=== PATIENT | female | born 1990 | race African-American/Black ===

== ENCOUNTER 2020-11-24 09:55 | Emergency (ER) | payer SELFPAY ==
[~2020-11-24] VITALS: Ht 149.9 cm; Wt 66.2 kg
[~2020-11-24 09:55] MED LIST: [UNRECOGNIZED DRUG - CODE] IV
[2020-11-24 10:00] VITALS: BP 137/60
[2020-11-24 11:46] LABS: Basophils # (auto) 0.1 10 ^3/uL (0-0.2); Basophils % (auto) 0.6 % (0.0-2.0); Eosinophils # (auto) 0 10 ^3/uL (0-0.8); Eosinophils % (auto) 0.2 % (0.0-7.0); Hematocrit 37.1 % (36.0-46.0); Hemoglobin 12.8 g/dL (12.2-16.2); Lymphocytes # (auto) 2.7 10 ^3/uL (0.4-5.4); Lymphocytes % (auto) 17.7 % (10.0-50.0); Mean Corpuscular Hemoglobin 31.2 pg (28.0-32.0); Mean Corpuscular Hgb Conc. 34.6 g/dL (32.0-36.0); Mean Corpuscular Volume 90.1 fL (80.0-100.0); Monocytes # (auto) 1.4 10 ^3/uL (0-1.3); Monocytes % (auto) 9.3 % (0.0-12.0); Neutrophils % (auto) 72.2 % (37.0-80.0); Nucleated Red Blood Cells % 0.1 %; Platelet Count (auto) 248 10^3/uL (140-450); Red Blood Cells 4.11 10^6/uL (4.0-5.20); Red Cell Distribution Width 14.2 % (11.8-14.3); White Blood Cell 15.3 10^3/uL (4.4-10.8)
[2020-11-24 12:07] LABS: Albumin 3.5 g/dL (3.4-5.0); Potassium 3.7 mmol/L (3.5-5.1)
[2020-11-24 12:14] LABS: Bilirubin, Total 0.5 mg/dL (0.2-1.0); Total Protein 8.2 g/dL (6.4-8.2)
[2020-11-24] MEDS ORDERED: PIPERACILLIN-TAZOB 3.375GM 100 ML IV ONE (17:45)
[2020-11-24] MEDS ORDERED: SODIUM CHLORIDE 0.9% 1,000 ML IV ONE (17:45)
[2020-11-24] MEDS ORDERED: metroNIDAZOLE 500MG/100ML 100 ML IV ONE (17:45)
== END 2020-11-24 18:30 | disposition left against medical advice (07) ==
LOC: ER 09:55
DX: R10.31 Right lower quadrant pain (principal); N70.91 Salpingitis, unspecified; F17.210 Nicotine dependence, cigarettes, uncomplicated
CPT/HCPCS: 36415; 74176; 76830; 76856; 80053; 84702; 85025

== ENCOUNTER 2022-09-24 08:20 | Emergency (ER) | payer OTHER ==
[~2022-09-24] VITALS: Ht 147.3 cm; Wt 64.0 kg
[2022-09-24] MEDS ORDERED: KETOROLAC TROMETH 60MG/2ML VIAL IM ONE (10:30)
[2022-09-24 10:39] VITALS: BP 117/84
[2022-09-24] MEDS ORDERED: METH500T22 PO (10:59)
[2022-09-24] MEDS ORDERED: IBUP600T27 PO (10:59)
== END 2022-09-24 11:07 | disposition home or self-care (01) ==
LOC: ER 08:20
DX: S16.1XXA Strain of muscle, fascia and tendon at neck level, initial encounter (principal); S39.012A Strain of muscle, fascia and tendon of lower back, initial encounter; F17.210 Nicotine dependence, cigarettes, uncomplicated; Z79.1 Long term (current) use of non-steroidal anti-inflammatories (NSAID); Z79.899 Other long term (current) drug therapy; W01.0XXA Fall on same level from slipping, tripping and stumbling without subsequent striking against object, initial encounter; Y93.89 Activity, other specified; Y92.89 Other specified places as the place of occurrence of the external cause; Y99.8 Other external cause status
CPT/HCPCS: 72040; 72100; 96372; 99284; J1885

== ENCOUNTER 2023-09-24 22:14 | Emergency (ER) | payer OTHER ==
[~2023-09-24] VITALS: Ht 149.9 cm; Wt 66.0 kg
[~2023-09-24 22:14] MED LIST changes: +IBUP-1454 PO; +METH-1181 PO
[2023-09-25] MEDS ORDERED: DexAMETHasone SOD PHOS 10MG/1ML VIAL INJ IM ONE (01:15)
[2023-09-25] MEDS ORDERED: KETOROLAC TROMETH 60MG/2ML VIAL IM ONE (01:15)
[2023-09-25] MEDS ORDERED: METOCLOPRAMIDE HCL 10 MG TAB PO ONE (01:15)
[2023-09-25] MEDS ORDERED: ACETAMINOPHEN 500 MG TAB PO ONE (01:15)
[2023-09-25 01:18] VITALS: BP 108/76
[2023-09-25 01:24] VITALS: PULSE 92; RESP 18; O2SAT 100
[2023-09-25 02:17] VITALS: PULSE 81
[2023-09-25] MEDS ORDERED: IBUP-1456 PO (03:33)
== END 2023-09-25 03:41 | disposition home or self-care (01) ==
LOC: ER 22:14
DX: S16.1XXA Strain of muscle, fascia and tendon at neck level, initial encounter (principal); G43.909 Migraine, unspecified, not intractable, without status migrainosus; M54.12 Radiculopathy, cervical region; F17.210 Nicotine dependence, cigarettes, uncomplicated; X58.XXXA Exposure to other specified factors, initial encounter; Y93.89 Activity, other specified; Y92.89 Other specified places as the place of occurrence of the external cause; Y99.8 Other external cause status
CPT/HCPCS: 71046; 93005; 96372; 99284; J1100; J1885; J8597

== ENCOUNTER 2024-07-24 11:06 | Emergency (ER) | payer OTHER ==
[~2024-07-24] VITALS: Ht 144.8 cm; Wt 66.8 kg
[~2024-07-24 11:06] MED LIST changes: +IBUP-1456 PO
[2024-07-24] MEDS ORDERED: FLUC150T38 PO (15:32)
[2024-07-24] MEDS ORDERED: IBUP1TAB5 PO (15:32)
[2024-07-24] MEDS ORDERED: CLOT-6 EX (15:32)
[2024-07-24] MEDS: IBUPROFEN 600 MG TAB PO ONE (15:36)
[2024-07-24 15:41] VITALS: BP 159/99; PULSE 104; RESP 16; TEMP 99.2; O2SAT 99
== END 2024-07-24 15:40 | disposition home or self-care (01) ==
LOC: ER 11:06
DX: B35.4 Tinea corporis (principal); B35.3 Tinea pedis; F17.210 Nicotine dependence, cigarettes, uncomplicated

== ENCOUNTER 2024-12-01 15:41 | Emergency (ER) | payer OTHER ==
[~2024-12-01] VITALS: Ht 147.3 cm; Wt 60.0 kg
[~2024-12-01 15:41] MED LIST changes: +CLOT-6 EX; +FLUC150T38 PO; +IBUP1TAB5 PO
--- NOTE | 2024-12-01 15:57 | ED.PDOC ---
History of Present Illness HPI Comments 34F BIBA w/ prior Hx of cyst in the ABD and an abscess on the fallopian tubes which all may be associated to the c/c of Lower ABD pain. EMS report the pt having abd pain for the past 5-6 years, due from the diagnosis. Pt notes that the pain worsened whenever she has her menstruation cycle due from the cramps. Pt reports that the pain has been increasingly worsened and yesterday the pt had lower ABD pain which was sharp. EMS note that the pt did state that she was 10 days late from her cycle and that there is a possibility of her being . Pt does have lesions in the arms. Denies chills, fever, N/V/D< SOB, CP or other associated symptom's, modifiers, or recent injuries or sick contact at this time. Chief Complaint: Pelvic Pain Time Seen by MD: 15:45 Primary Care Provider: UNKNOWN Reviewed Notes: Nurses Notes, Medications, Allergies Allergies: Coded Allergies: NO KNOWN ALLERGIES (Unverified , 11/24/20) Home Meds Active Scripts Cephalexin Monohydrate (Cephalexin) 500 Mg Tab, 1 TAB PO QID, #40 TAB Prov:MARIE HOOKS MD 12/01/24 Ibuprofen Micronized (MOTRIN TABLET) 600 Mg Tb, 600 MG PO TID PRN, #40 TAB *Black box warning-NSAIDS can increase risk of [place] & hypertension, GI irritation, ulceration, bleed, perferation. Do not use post cardiac surgery. Use short duration/lowest effective dose. Prov:MARIE HOOKS MD 12/01/24 Fluconazole (Diflucan) 150 Mg Tab, 1 TAB PO ONCE for 14 Days, #2 TAB Take once weekly for two weeks Prov:CANDY FRANCIS 07/24/24 Clotrimazole (Topical) (EQ ANTIFUNGAL) 1 % Cre, 1 % EX BID for 28 Days, #1 CRE Prov:CANDY FRANCIS 07/24/24 Ibuprofen Micronized (Ibuprofen) 600 Mg Tab, 600 MG PO Q8HPRN PRN, #20 TAB Prov:CANDY FRANCIS 07/24/24 Methocarbamol (Methocarbamol) 500 Mg Tab, 500 MG PO BID, #20 TAB Prov:PATRICIA CAIN 02/10/24 Ibuprofen (Ibuprofen) 800 Mg Tab, 1 TAB PO TID, #30 TAB Prov:PATRICIA CAIN 02/10/24 Ibuprofen (Ibuprofen) 800 Mg Tab, 1 TAB PO TID PRN for 7 Days, #21 TAB 1 Refill Prov:JESSY VELEZ CNA CAREGIVER 09/25/23 Methocarbamol (Methocarbamol) 500 Mg Tab, 500 MG PO BID, #20 TAB Prov:PATRICIA CAIN 09/24/22 Ibuprofen (Ibuprofen) 600 Mg Tab, 600 MG PO TID, #30 TAB Prov:PATRICIA CAIN 09/24/22 Reported Medications Heparin Sodium (Porcine) ((None)) 10 Units/Ml Ij, 10 UNITS IV 10/21/13 Information Source: Patient Mode of Arrival: EMS Severity: Moderate Timing: Hours Duration: Since onset, Hours Prehospital treatment: None Past Medical History PAST MEDICAL HISTORY: Denies Surgical History: Denies all surgeries CASE MANAGEMENT SPECIALIST History: No Pertinent CASE MANAGEMENT SPECIALIST History Family History Family History: Reviewed,noncontributory to illness, Unknown Social History Smoker: Non-Smoker Alcohol: Denies ETOH Use Drugs: Denies Drug Use Lives In: Home Constitutional: denies: chills, diaphoresis, fatigue, fever, malaise, sweats, weakness, others EENTM: denies: blurred vision, double vision, ear bleeding, ear discharge, ear drainage, ear pain, ear ringing, eye pain, eye redness, hearing loss, mouth pain, mouth swelling, nasal discharge, nose bleeding, nose congestion, nose pain, photophobia, tearing, throat pain, throat swelling, voice changes, others Respiratory: denies: cough, hemoptysis, orthopnea, SOB at rest, shortness of breath, SOB with excertion, stridor, wheezing, others Cardiovascular: denies: chest pain, dizzy spells, diaphoresis, Dyspnea on exertion, edema, irregular heart beat, left arm pain, lightheadedness, palpitations, PND, syncope, others Gastrointestinal: reports: abdominal pain; denies: abdomen distended, blood streaked bowels, constipated, diarrhea, dysphagia, difficulty swallowing, hematemesis, melena, nausea, poor appetite, poor fluid intake, rectal bleeding, rectal pain, vomiting, others Genitourinary: denies: abnormal vagina bleeding, burning, dyspareunia, dysuria, flank pain, frequency, hematuria, incontinence, pain, , vagina discharge, urgency, others Neurological: denies: dizziness, fainting, headache, left sided numbness, left sided weakness, numbness, paresthesia, pre-existing deficit, right sided numbness, right sided weakness, seizure, speech problems, tingling, tremors, weakness, others Musculoskeletal: denies: back pain, gout, joint pain, joint swelling, muscle pain, muscle stiffness, neck pain, others Integumetry: denies: bruises, change in color, change in hair/nails, dryness, laceration, lesions, lumps, rash, wounds, others Allergic/Immunocompromised: denies: Difficulty Healing, Frequent Infections, Hives, Itching, others Hematologic/Lymphatic: denies: anemia, blood clots, easy bleeding, easy bruising, swollen glands, others Endocrine: denies: excessive hunger, excessive sweating, excessive thirst, excessive urination, flushing, intolerance to cold, intolerance to heat, unexplained weight gain, unexplained weight loss, others Psychiatric: denies: anxiety, bipolar disorder, depression, hopeless, panic disorder, schizophrenia, sleepless, suicidal, others All Other Systems: Reviewed and Negative Physical Exam Exam Comments Non-tender General Appearance: No Apparent Distress, Normal HEENT: Normal ENT Inspection, Pharynx Normal, TMs Normal Neck: Full Range of Motion, Non-Tender, Normal, Normal Inspection Respiratory: Chest Non-Tender, Lungs Clear, No Accessory Muscle Use, No Respiratory Distress, Normal Breath Sounds Cardiovascular: No Edema, No JVD, No Murmur, No Gallop, Normal Peripheral Pulses, Regular Rate/Rhythm Breast Exam: Deferred Gastrointestinal: No Organomegaly, Non Tender, No Pulsatile Mass, Normal Bowel Sounds, Soft Genitalia: Deferred Pelvic: Deferred Rectal: Deferred Extremities: No calf tenderness, Normal capillary refill, Normal inspection, Normal range of motion, Non-tender, No pedal edema Musculoskeletal : Apperance: Normal Neurologic: Alert, equity analyst II-XII nml as Tested, No Motor Deficits, Normal Affect, Normal Mood, No Sensory Deficits Cerebellar Function: Normal Reflexes: Normal Skin: Dry, Normal Color, Warm Lymphatic: No Adenopathy Was a procedure done? Was a procedure done?: No Differential Dx Considerations may include: ovarian cyst. ovarian torsion, ovarian mass. colitis, stones, uti, related conditions. sob. constipation X-Ray, Labs, Meds, VS Vital Signs Date Time Temp Pulse Resp B/P (MAP) Pulse Ox O2 Delivery O2 Flow Rate FiO2 12/01/24 15:46 98.3 103 18 112/75 (87) 100 Lab Test 12/01/24 16:25 12/01/24 16:15 Range/Units Urine Color Light-yellow Yellow Urine Clarity Turbid H Clear Urine pH 5.5 5.0-9.0 Urine Specific [place] 1.010 1.001-1.035 Urine Protein Trace H Negative Urine Ketones Negative Negative Urine Blood Negative Negative /uL Urine Nitrite 2+ H Negative Urine Bilirubin Negative Negative Urine Urobilinogen Normal Negative mg/dL Urine Leukocyte Esterase Trace Negative /uL Urine RBC 3 0 - 4 /hpf Urine WBC 10 0 - 5 /hpf Urine Squamous Epithelial Cells Few <5 /hpf Urine Bacteria Few H None Seen /hpf Urine Hyaline Casts Few 0 - 2 /lpf Urine Mucus Few None Seen Urine Glucose Normal Normal mg/dL Urine Test Negative Negative White Blood Count 6.4 4.4-10.8 10^3/uL Red Blood Count 4.29 4.0-5.20 10^6/uL Hemoglobin 13.5 12.2-16.2 g/dL Hematocrit 39.5 36.0-46.0 % Mean Corpuscular Volume 92.1 80.0-100.0 fL Mean Corpuscular Hemoglobin 31.4 28.0-32.0 pg Mean Corpuscular Hemoglobin Concent 34.1 32.0-36.0 g/dL Red Cell Distribution Width 14.4 H 11.8-14.3 % Platelet Count 120 L 140-450 10^3/uL Mean Platelet Volume 8.2 6.9-10.8 fL Neutrophils (%) (Auto) 64.0 37.0-80.0 % Lymphocytes (%) (Auto) 28.5 10.0-50.0 % Monocytes (%) (Auto) 6.5 0.0-12.0 % Eosinophils (%) (Auto) 0.3 0.0-7.0 % Basophils (%) (Auto) 0.7 0.0-2.0 % Neutrophils # (Auto) 4.1 1.6-8.6 10 ^3/uL Lymphocytes # (Auto) 1.8 0.4-5.4 10 ^3/uL Monocytes # (Auto) 0.4 0-1.3 10 ^3/uL Eosinophils # (Auto) 0 0-0.8 10 ^3/uL Basophils # (Auto) 0 0-0.2 10 ^3/uL Nucleated Red Blood Cells 0.0 % Sodium Level 141 136-145 mmol/L Potassium Level 3.3 L 3.5-5.1 mmol/L Chloride Level 109 H 98-107 mmol/L Carbon Dioxide Level 22 20-31 mmol/L Anion Gap 10 5-15 Blood Urea Nitrogen 6 L 9-23 mg/dL Creatinine 0.69 0.550-1.02 mg/dL Glomerular Filtration Rate Calc 117 >90 mL/min BUN/Creatinine Ratio 8.7 L 10.0-20.0 Serum Glucose 84 74-106 mg/dL Calcium Level 9.9 8.7-10.4 mg/dL Current Medications Medications (Trade) Dose Ordered Sig/Kari Route Start Time Stop Time Status Last Admin Acetaminophen/ Hydrocodone Bitart ([place] 7.5/325MG Tab) 1 tab ONCE ONCE PO 12/01/24 16:15 12/01/24 16:16 DC 12/01/24 16:26 Cephalexin (Keflex Capsule) 500 mg ONCE ONCE PO 12/01/24 18:45 12/01/24 18:46 DC 12/01/24 18:56 Time of 1ST Reevaluation: 16:15 Reevaluation 1ST: Unchanged Time of 2ND Reevaluation: 21:06 Reevaluation 2ND: Resolved Patient Education/Counseling: Diagnosis, Treatment, Prognosis, Need For Follow Up Family Education/Counseling: Diagnosis, Treatment, Prognosis, Need For Follow Up, No Family Present Additional Information - I reviewed the following notes from patient's past medical encounters:07/24/24 - The following tests were ordered, and results were reviewed by me: Labs, PHA, US - Additional information was gathered from interviewing the following independent Historian: EMT - I reviewed and agreed with the following test results read by other provider: US - I discussed treatments and results with medical personnel and: (consultants, family) both US and ct only showed a nonspecific ovarian cystic structure. since both the ct and us were unable to delineate the lesion. she has known about this for years.her pain is resolved. pt is stable to follow up with her doctor. Dr Masters will have brass molder helper contact her on wednesday for follow up Departure 1 Departure Time of Disposition: 19:16 Impression: Primary Impression: UTI (urinary tract infection) Qualified Codes: N30.00 - Acute cystitis without hematuria Additional Impression: Ovarian cyst Qualified Codes: N83.201 - Unspecified ovarian cyst, right side Disposition: HOME / SELF CARE / HOMELESS Condition: Stable Additional Instructions: your doctor will follow up with you to further evaluate your ovarian growth, which may be a cyst or other structures. e-Prescriptions Cephalexin Monohydrate (Cephalexin) 500 Mg Tab 1 TAB PO QID, #40 TAB Prov: MARIE HOOKS MD 12/01/24 Ibuprofen Micronized (MOTRIN TABLET) 600 Mg Tb 600 MG PO TID PRN, #40 TAB *Black box warning-NSAIDS can increase risk of [place] & hypertension, GI irritation, ulceration, bleed, perferation. Do not use post cardiac surgery. Use short duration/lowest effective dose. Prov: MARIE HOOKS MD 12/01/24 Discharged With: Self, Relative Critical Care Note Critical Care Time?: No Stability Stability form required: No I personally scribed for MARIE HOOKS MD ([email or web address]) on 12/01/24 at 15:57. Electronically submitted by Addison Diehl ([email or web address]). MARIE HOOKS MD Dec 01, 2024 15:57
[2024-12-01] MEDS ORDERED: HYDROcodone-ACET 5/325MG TAB PO ONE (16:00)
[2024-12-01] MEDS: HYDROcodone-ACET 7.5/325MG TAB PO ONE (16:26)
[2024-12-01 16:30] LABS: Basophils # (auto) 0 10 ^3/uL (0-0.2); Basophils % (auto) 0.7 % (0.0-2.0); Eosinophils # (auto) 0 10 ^3/uL (0-0.8); Eosinophils % (auto) 0.3 % (0.0-7.0); Hematocrit 39.5 % (36.0-46.0); Hemoglobin 13.5 g/dL (12.2-16.2); Lymphocytes # (auto) 1.8 10 ^3/uL (0.4-5.4); Lymphocytes % (auto) 28.5 % (10.0-50.0); Mean Corpuscular Hemoglobin 31.4 pg (28.0-32.0); Mean Corpuscular Hgb Conc. 34.1 g/dL (32.0-36.0); Mean Corpuscular Volume 92.1 fL (80.0-100.0); Monocytes # (auto) 0.4 10 ^3/uL (0-1.3); Monocytes % (auto) 6.5 % (0.0-12.0); Neutrophils # (auto) 4.1 10 ^3/uL (1.6-8.6); Platelet Count (auto) 120 10^3/uL (140-450); Red Blood Cells 4.29 10^6/uL (4.0-5.20); Red Cell Distribution Width 14.4 % (11.8-14.3); White Blood Cell 6.4 10^3/uL (4.4-10.8)
[2024-12-01 16:44] LABS: Sodium 141 mmol/L (136-145)
[2024-12-01 16:45] LABS: Anion Gap 10 (5-15); Calcium 9.9 mg/dL (8.7-10.4); Carbon Dioxide 22 mmol/L (20-31)
[2024-12-01 16:50] LABS: BUN/Creatinine Ratio 8.7 (10.0-20.0); Glucose 84 mg/dL (74-106)
[2024-12-01 16:52] LABS: Blood Urea Nitrogen 6 mg/dL (9-23); Chloride 109 mmol/L (98-107); Potassium 3.3 mmol/L (3.5-5.1)
[2024-12-01 17:08] LABS: Urine Bacteria FEW /hpf (None Seen); Urine Blood Negative /uL (Negative); Urine Clarity Turbid (Clear); Urine Color Light-Yellow (Yellow); Urine Hyaline Cast FEW /lpf (0 - 2); Urine Mucus FEW (None Seen); Urine Protein, UAD TRACE (Negative); Urine Squamous Epithelial Cell FEW /hpf (<5); Urine Urobilinogen Normal (Negative); Urine WBC 10 /hpf (0 - 5); Urine pH 5.5 (5.0-9.0)
--- NOTE | 2024-12-01 18:49 | DVH ---
Procedure: US PELVIC Study Date and Requested Time: 12/01/2024 05:21 PM Study Description: US PELVIC History: pelvic pain Comparison: None Technique: Multiple transabdominal and transvaginal high resolution shore-scale images obtained of the uterus and adnexa with color Doppler for evaluation of adnexal blood flow and vascularity as indicat ed. Findings: Uterus measures 9.0 4 x 4.42 x 3.9 cm with multiple hypoechoic lesions, largest measuring up to 1.8 c m. Endometrial thickness of 14 mm. Cervix within normal limits. The right ovary is not visualized. 8.6 x 3.7 x 7.4 cm right adnexal structure. Left ovary measures 3.8 x 3.2 x 3.5 cm 3.4 cm cyst. 4 x 3.4 x 4.5 cm left adnexal structure There is small amount of free fluid within the pelvis Impression: Fibroid uterus. The right ovary is not visualized. 3.4 cm left ovarian cyst. 8.6 x 3.7 x 7.4 cm complex structure of the right adnexa with 4 x 3.4 x 4.5 cm complex structure of t he left adnexa which are not adequately assessed. CT with contrast should be considered for further e valuation. Endometrial thickness of 14 mm. Recommend correlation with phase of menstrual cycle
[2024-12-01] MEDS: CEPHALEXIN 250 MG CAP PO ONE (18:56)
--- NOTE | 2024-12-01 19:54 | DVH ---
Exam: CT CT AB PEL WO CON-NO ORAL OR IV History: right lower abdominal pain Comparison Study: None available at time of dictation. TECHNIQUE: Multidetector CT of the abdomen was performed from lung bases to pubic symphysis. Imaging was performed without IV contrast. Axial, coronal and sagittal multiplanar reformats were obtained fr om the axial data set by the technologist. Radiation Dose Information: CT Dose: CTDI volume is 5.95 mGy. Dose-length product is 306.6 mGy*cm FINDINGS: Evaluation of solid organs is limited due to lack of intravenous contrast use. Findings: Lung Bases: No acute or significant lung base finding. Normal heart size. No pleural or pericardial effusion. Liver: The liver is normal in size. No focal lesions. Gallbladder and Biliary Tree: Unremarkable Spleen: Unremarkable Pancreas: The pancreas is grossly normal in appearance. Adrenal Glands: Unremarkable Kidneys: Kidneys are grossly normal without calculi or hydronephrosis. Bladder: Grossly unremarkable for degree of distention. Bowel: The stomach is grossly normal in appearance. Small bowel and colon are normal in caliber and d istribution. The appendix is visible and appears normal Ascites: Absent Lymphadenopathy: No mesenteric, retroperitoneal or periportal lymphadenopathy. Abdominal Wall and Mesentery: Unremarkable. Vasculature: The visualized abdominal aorta is normal in size and caliber. Evaluation of abdominal a nd pelvic vessels is limited due to lack of intravenous contrast. Pelvic Organs: Uterus is visible and there is a 3.2 cm low-density mass in the left adnexa most likel y ovary. In the right adnexa there are 2 water density lesions 1 measures 3.6 cm the other 4.4 cm may represent ovarian structures if of clinical concern recommend pelvic ultrasound. Musculoskeletal: No aggressive focal bony lesions, acute fractures or dislocation. Soft tissues: Unremarkable IMPRESSION: 1. No calcifications the gallbladder. 2. Appendix visualized and appears normal 3. Prominent right adnexal masses measuring pre 0.6 and 4.4 cm most likely ovarian in origin if of cl inical concern recommend pelvic ultrasound. 4. No findings of bowel obstruction. 5. No nephrolithiasis or hydronephrosis. Radiation optimization: All CT scans at this facility use at least one of these dose optimization te chniques: automated exposure control mA and/or kV adjustment per patient size (includes targeted exa ms where dose is matched to clinical indication) or iterative reconstruction.
[2024-12-01] MEDS ORDERED: IBU600T PO (21:09)
[2024-12-01] MEDS ORDERED: CEPH500T PO (21:33)
[2024-12-01 21:37] VITALS: BP 148/100; PULSE 108; RESP 18; TEMP 99.1; O2SAT 96
--- NOTE | 2024-12-02 08:03 | DVHDS2 ---
Physician Discharge Progress N Final Diagnosis: UTI Ovarian cysts Fibroid uterus Operations or Procedures: Operations or Procedures none Other Interventions Other Interventions Lab results, US, CT Consultations: Consultations none Commentary: Commentary 34 y.o. female with h/o ovarian cysts was brought to the ER c/o abdominal pain. Patient informed that she had h/o abdominal abscess related to fallopian tubes infection and that she has experienced abdominal pain for the past 6 years during her menstrual cycle. She stated that yesterday her pain was worse and she decided to come to ER. Patient stated that her cycle was late and she might be . Her beta HCG was less than 1 and ER MD ordered CT that showed: Pelvic Organs: Uterus is visible and there is a 3.2 cm low-density mass in the left adnexa most likely ovary. In the right adnexa there are 2 water density lesions 1 measures 3.6 cm the other 4.4 cm may represent ovarian structures if of clinical concern recommend pelvic ultrasound. In addition, her US showed fibroid uterus. Patient was given IV Abx and discharged to follow up with [facility] as an outpatient. Patient agreed with the plan of care. Condition on Discharge: Stable Disposition: Home SNF Discharge Will this Physician continue t: No Discharge Instructions: Diet: Regular Activity: No Restrictions, As Tolerated Follow Up/Referral: Follow with [facility]. [facility] case management will schedule the appointment and coordinated with the patient Medications: Continue home medications and Abx for UTI Follow Up Care: Discharge Statement: "Patient was advised to return to the ER or call 911 if any headaches, dizziness, shortness of breath, chest pain, abdominal pain, bleeding, fevers, or worsening of medical condition. Patient was counseled about treatment plan, medications, possible side effects, patientverbalized understanding. All questions were answered to the best of my ability. This discharge took greater then 30 minutes in planning, reviewing documentation, counseling the patient, and discussing with other team members." JESSE LÓPEZ MD Dec 02, 2024 08:03
== END 2024-12-01 21:47 | disposition home or self-care (01) ==
LOC: EDUNIT# 15:41 → ER 15:41 → EDBD 15:41 → ER 21:46
DX: N39.0 Urinary tract infection, site not specified (principal); N83.202 Unspecified ovarian cyst, left side; R10.30 Lower abdominal pain, unspecified
CPT/HCPCS: 36415; 74176; 76856; 80048; 81001; 81025; 85025

== ENCOUNTER 2025-03-14 11:34 | Emergency (ER) | payer OTHER ==
[~2025-03-14] VITALS: Ht 149.9 cm; Wt 55.5 kg
[~2025-03-14 11:34] MED LIST changes: +CEPH500T PO; +IBU600T PO
[2025-03-14 14:00] VITALS: PULSE 105; RESP 22; O2SAT 97
[2025-03-14 14:01] LABS: Eosinophils # (auto) 0 10 ^3/uL (0-0.8); Hemoglobin 8.2 g/dL (12.2-16.2); Lymphocytes # (auto) 1.6 10 ^3/uL (0.4-5.4)
[2025-03-14 14:03] LABS: Basophils # (auto) 0 10 ^3/uL (0-0.2); Basophils % (auto) 0.4 % (0.0-2.0); Eosinophils % (auto) 0.2 % (0.0-7.0); Lymphocytes % (auto) 18.2 % (10.0-50.0); Mean Corpuscular Hemoglobin 33.1 pg (28.0-32.0); Mean Corpuscular Hgb Conc. 34.2 g/dL (32.0-36.0); Mean Corpuscular Volume 96.7 fL (80.0-100.0); Monocytes # (auto) 0.8 10 ^3/uL (0-1.3); Monocytes % (auto) 9.4 % (0.0-12.0); Neutrophils # (auto) 6.5 10 ^3/uL (1.6-8.6); Neutrophils % (auto) 71.8 % (37.0-80.0); Nucleated Red Blood Cells % 2.4 %; Red Blood Cells 2.48 10^6/uL (4.0-5.20); Red Cell Distribution Width 17.9 % (11.8-14.3)
[2025-03-14 14:14] LABS: Alanine Aminotransferase 18 U/L (7-40); Albumin 4.3 g/dL (3.2-4.8); Alkaline Phosphatase 46 U/L (46-116); Anion Gap 10 (5-15); BUN/Creatinine Ratio 13.4 (10.0-20.0); Blood Urea Nitrogen 18 mg/dL (9-23); Calcium 9.7 mg/dL (8.7-10.4); Carbon Dioxide 22 mmol/L (20-31); Chloride 101 mmol/L (98-107); Glucose 94 mg/dL (74-106); Total Protein 7.6 g/dL (5.7-8.2)
[2025-03-14 14:17] LABS: Aspartate Aminotransferase 103 U/L (13-40); Bilirubin, Total 1.3 mg/dL (0.2-1.0); Potassium 3.2 mmol/L (3.5-5.1); Sodium 133 mmol/L (136-145)
[2025-03-14 14:21] LABS: Anisocytosis Slight; Platelet Count (auto) 27 10^3/uL (140-450); Platelet Estimate Markedly Decreased
[2025-03-14 14:22] LABS: Large Platelets FEW
[2025-03-14] MEDS ORDERED: ASPirin 325 MG TAB PO ONE (14:30)
--- NOTE | 2025-03-14 14:39 | ED.PDOC ---
History of Present Illness HPI Comments 34F presents to the Er w/ prior Hx of connective tissue disease which may be associated to the c/c of ABN Labs. Pt reports that she did not eat for 2 days and went to and that they informed her that her platelets are at 10 and to go to the ER. Pt states that the reason for going to was due from feeling dizzy, dry cough and having dry mouth. Pt notes that she has 20lbs in a week. Denies chills, fever, N/V/D, SOB, CP No other associated symptoms, modifiers, recent injuries or sick contacts present at this time. Chief Complaint: Chest Pain Time Seen by MD: 12:50 Primary Care Provider: UNKNOWN Reviewed Notes: Nurses Notes, Medications, Allergies Allergies: Coded Allergies: NO KNOWN ALLERGIES (Unverified , 11/24/20) Home Meds Active Scripts Cephalexin Monohydrate (Cephalexin) 500 Mg Tab, 1 TAB PO QID, #40 TAB Prov:MARIE FELIPE MD 12/01/24 Ibuprofen Micronized (MOTRIN TABLET) 600 Mg Tb, 600 MG PO TID PRN, #40 TAB *Black box warning-NSAIDS can increase risk of VT & hypertension, GI irritation, ulceration, bleed, perferation. Do not use post cardiac surgery. Use short duration/lowest effective dose. Prov:MARIE FELIPE MD 12/01/24 Fluconazole (Diflucan) 150 Mg Tab, 1 TAB PO ONCE for 14 Days, #2 TAB Take once weekly for two weeks Prov:CANDY FRANCIS 07/24/24 Clotrimazole (Topical) (EQ ANTIFUNGAL) 1 % Cre, 1 % EX BID for 28 Days, #1 CRE Prov:CANDY FRANCIS 07/24/24 Ibuprofen Micronized (Ibuprofen) 600 Mg Tab, 600 MG PO Q8HPRN PRN, #20 TAB Prov:CANDY FRANCIS 07/24/24 Methocarbamol (Methocarbamol) 500 Mg Tab, 500 MG PO BID, #20 TAB Prov:PATRICIA CAIN 02/10/24 Ibuprofen (Ibuprofen) 800 Mg Tab, 1 TAB PO TID, #30 TAB Prov:PATRICIA CAIN 02/10/24 Ibuprofen (Ibuprofen) 800 Mg Tab, 1 TAB PO TID PRN for 7 Days, #21 TAB 1 Refill Prov:JESSY VELEZP 09/25/23 Methocarbamol (Methocarbamol) 500 Mg Tab, 500 MG PO BID, #20 TAB Prov:PATRICIA CAIN 09/24/22 Ibuprofen (Ibuprofen) 600 Mg Tab, 600 MG PO TID, #30 TAB Prov:PATRICIA CAIN 09/24/22 Reported Medications Heparin Sodium (Porcine) ((None)) 10 Units/Ml Ij, 10 UNITS IV 10/21/13 Information Source: Patient Mode of Arrival: EMS Severity: Moderate Timing: Hours Duration: Since onset, Hours Prehospital treatment: None Past Medical History Past Medical History (Other): Connective tissue Shira Surgical History: Denies all surgeries WELFARE ELIGIBILITY INTERVIEWER History: No Pertinent WELFARE ELIGIBILITY INTERVIEWER History Family History Family History: Reviewed,noncontributory to illness, Unknown Social History Smoker: Non-Smoker Alcohol: Denies ETOH Use Drugs: Denies Drug Use Lives In: Home Constitutional: denies: chills, diaphoresis, fatigue, fever, malaise, sweats, weakness, others EENTM: denies: blurred vision, double vision, ear bleeding, ear discharge, ear drainage, ear pain, ear ringing, eye pain, eye redness, hearing loss, mouth pain, mouth swelling, nasal discharge, nose bleeding, nose congestion, nose pain, photophobia, tearing, throat pain, throat swelling, voice changes, others Respiratory: reports: cough; denies: hemoptysis, orthopnea, SOB at rest, shortness of breath, SOB with excertion, stridor, wheezing, others Cardiovascular: denies: chest pain, dizzy spells, diaphoresis, Dyspnea on exertion, edema, irregular heart beat, left arm pain, lightheadedness, palpitations, PND, syncope, others Gastrointestinal: denies: abdomen distended, abdominal pain, blood streaked bowels, constipated, diarrhea, dysphagia, difficulty swallowing, hematemesis, melena, nausea, poor appetite, poor fluid intake, rectal bleeding, rectal pain, vomiting, others Genitourinary: denies: abnormal vagina bleeding, burning, dyspareunia, dysuria, flank pain, frequency, hematuria, incontinence, pain, , vagina discharge , urgency, others Neurological: reports: dizziness; denies: fainting, headache, left sided numbness, left sided weakness, numbness, paresthesia, pre-existing deficit, right sided numbness, right sided weakness, seizure, speech problems, tingling, tremors, weakness, others Musculoskeletal: denies: back pain, gout, joint pain, joint swelling, muscle pain, muscle stiffness, neck pain, others Integumetry: denies: bruises, change in color, change in hair/nails, dryness, laceration, lesions, lumps, rash, wounds, others Allergic/Immunocompromised: denies: Difficulty Healing, Frequent Infections, Hives, Itching, others Hematologic/Lymphatic: denies: anemia, blood clots, easy bleeding, easy bruising, swollen glands, others Endocrine: denies: excessive hunger, excessive sweating, excessive thirst, excessive urination, flushing, intolerance to cold, intolerance to heat, unexplained weight gain, unexplained weight loss, others Psychiatric: denies: anxiety, bipolar disorder, depression, hopeless, panic disorder, schizophrenia, sleepless, suicidal, others All Other Systems: Reviewed and Negative Physical Exam General Appearance: No Apparent Distress, Normal HEENT: Normal ENT Inspection, Pharynx Normal, TMs Normal Neck: Full Range of Motion, Non-Tender, Normal, Normal Inspection Respiratory: Chest Non-Tender, Lungs Clear, No Accessory Muscle Use, No Respiratory Distress, Normal Breath Sounds Cardiovascular: No Edema, No JVD, No Murmur, No Gallop, Normal Peripheral Pulses, Regular Rate/Rhythm Breast Exam: Deferred Gastrointestinal: No Organomegaly, Non Tender, No Pulsatile Mass, Normal Bowel Sounds, Soft Genitalia: Deferred Pelvic: Deferred Rectal: Deferred Extremities: No calf tenderness, Normal capillary refill, Normal inspection, Normal range of motion, Non-tender, No pedal edema Musculoskeletal : Apperance: Normal Neurologic: Alert, substation engineer II-XII nml as Tested, No Motor Deficits, Normal Affect, Normal Mood, No Sensory Deficits Cerebellar Function: Normal Reflexes: Normal Skin: Dry, Normal Color, Warm Lymphatic: No Adenopathy Was a procedure done? Was a procedure done?: No Differential Dx Considerations may include: ITP, TTP, HUS, hematologic malignancy, marrow failure. HIT X-Ray, Labs, Meds, VS Vital Signs Date Time Temp Pulse Resp B/P (MAP) Pulse Ox O2 Delivery O2 Flow Rate FiO2 03/14/25 17:20 107 24 134/100 03/14/25 16:00 105 03/14/25 15:00 106 29 130/97 (108) 97 03/14/25 14:41 106 03/14/25 14:00 105 22 97 Room Air* 0 21 03/14/25 14:00 98.5 105 22 136/88 (104) 97 98.5 03/14/25 13:54 106 03/14/25 13:54 106 19 125/82 (96) 97 03/14/25 12:32 104 03/14/25 12:08 98.0 103 20 129/97 (108) 99 98.0 03/14/25 11:40 99 03/14/25 11:35 98.6 100 18 138/102 (114) 99 98.6 Lab Test 03/14/25 15:47 03/14/25 13:35 03/14/25 12:39 Range/Units Troponin I High Sensitivity 661 *H 692 *H 692 *H </=34 ng/L White Blood Count 9.0 4.4-10.8 10^3/uL Red Blood Count 2.48 L 4.0-5.20 10^6/uL Hemoglobin 8.2 L 12.2-16.2 g/dL Hematocrit 24.0 L 36.0-46.0 % Mean Corpuscular Volume 96.7 80.0-100.0 fL Mean Corpuscular Hemoglobin 33.1 H 28.0-32.0 pg Mean Corpuscular Hemoglobin Concent 34.2 32.0-36.0 g/dL Red Cell Distribution Width 17.9 H 11.8-14.3 % Platelet Count 27 L 140-450 10^3/uL Mean Platelet Volume 8.6 6.9-10.8 fL Neutrophils (%) (Auto) 71.8 37.0-80.0 % Lymphocytes (%) (Auto) 18.2 10.0-50.0 % Monocytes (%) (Auto) 9.4 0.0-12.0 % Eosinophils (%) (Auto) 0.2 0.0-7.0 % Basophils (%) (Auto) 0.4 0.0-2.0 % Neutrophils # (Auto) 6.5 1.6-8.6 10 ^3/uL Lymphocytes # (Auto) 1.6 0.4-5.4 10 ^3/uL Monocytes # (Auto) 0.8 0-1.3 10 ^3/uL Eosinophils # (Auto) 0 0-0.8 10 ^3/uL Basophils # (Auto) 0 0-0.2 10 ^3/uL Nucleated Red Blood Cells 2.4 % Platelet Estimate Markedly decreased Large Platelets Few Anisocytosis (manual) Slight Schistocytes Few Sodium Level 133 L 136-145 mmol/L Potassium Level 3.2 L 3.5-5.1 mmol/L Chloride Level 101 98-107 mmol/L Carbon Dioxide Level 22 20-31 mmol/L Anion Gap 10 5-15 Blood Urea Nitrogen 18 9-23 mg/dL Creatinine 1.34 H 0.550-1.02 mg/dL Glomerular Filtration Rate Calc 54 >90 mL/min BUN/Creatinine Ratio 13.4 10.0-20.0 Serum Glucose 94 74-106 mg/dL Calcium Level 9.7 8.7-10.4 mg/dL Total Bilirubin 1.3 H 0.2-1.0 mg/dL Aspartate Amino Transferase (AST) 103 H 13-40 U/L Alanine Aminotransferase (ALT) 18 7-40 U/L Alkaline Phosphatase 46 46-116 U/L Total Protein 7.6 5.7-8.2 g/dL Albumin 4.3 3.2-4.8 g/dL Current Medications Medications (Trade) Dose Ordered Sig/Kari Route Start Time Stop Time Status Last Admin Potassium Chloride (Klor-Con Tablet) 40 meq ONCE ONCE PO 03/14/25 14:30 03/14/25 14:35 DC 03/14/25 15:17 Aspirin 325 mg ONCE ONCE PO 03/14/25 15:15 03/14/25 15:16 DC 03/14/25 15:17 Morphine Sulfate 2 mg ONCE ONCE IV 03/14/25 17:15 03/14/25 17:16 DC 03/14/25 17:20 Dr. Felipe Reviewed the test results of the troponin and it was at 692 Time of 1ST Reevaluation: 13:20 Reevaluation 1ST: Unchanged Patient Education/Counseling: Diagnosis, Treatment, Prognosis, Need For Follow Up Family Education/Counseling: No Family Present Additional Information The following tests were ordered, and results were reviewed by me: PHA, BBK, LAB, EKG Additional Information was gathered from interviewing the following independent historians: 12/01/24 I discussed treatment and results with medical personnel and: Patient Comprehensive systems review obtained and negative except for what is stated in the HPI. pt presents with low platelet count. she has no chest pain or sob. pt may have TTP with her plat above 10, less than 30, she may drop and be at risk for bleeding, so aspirin is not given, without symptoms and no ekg changes. hemeonc will be consulted for consideration of plasma exchange and steorid if this is TTP and pt will be admitted. Departure 1 Departure Time of Disposition: 17:27 Impression: Primary Impression: Thrombocytopenia Additional Impressions: Anemia Qualified Codes: D64.9 - Anemia, unspecified Elevated troponin Disposition: ADMITTED INPATIENT Admit to: ICU Condition: Serious Discharged With: Self Critical Care Note Critical Care Time?: Yes (1 hr-critical care time only) Critical care comment: Due to concerns for patients condition deteriorating, the care required my highest level of attention and readiness to intervene. I assessed the patient, reviewed the medical records, ordered the appropriate tests and treatments, then reassessed for results and responsiveness. I communicated with medical personnel and consultants and formulated a plan of care. Total critical care time excludes any procedures Stability Stability form required: No I personally scribed for MARIE FELIPE MD ([email or web address]) on 03/14/25 at 14:39. Electronically submitted by Addison Diehl ([email or web address]). MARIE FELIPE MD Mar 14, 2025 14:39
[2025-03-14] MEDS: POTASSIUM CHL 20 Meq TABLET PO ONE (15:17)
[2025-03-14] MEDS: ASPirin 325 MG TAB PO ONE (15:17)
[2025-03-14] MEDS: MORPHINE SULFATE INJ 2 MG/ml SYRG IV ONE (17:20)
--- NOTE | 2025-03-14 18:52 | ECG ---
[facility] Test Date: 2025-03-14 Test Time: 11:37:21 Pat Name: BECK FIELD Department: ED Room: Gender: F Weight Engineer: DIANA : 1990 Requested By: RACHELLE VELAZQUEZ Order Number: [id number] Reading MD: Measurements Intervals [place] Rate: 99 P: 48 UT: 129 QRS: 52 QRSD: 84 T: 268 QT: 406 QTc: 522 Interpretive Statements Sinus tachycardia Multiple ventricular premature complexes Abnormal T, consider ischemia, diffuse leads Prolonged QT interval Please click the below link to view image of tracing.
--- NOTE | 2025-03-14 18:53 | ECG ---
[facility] Test Date: 2025-03-14 Test Time: 12:29:56 Pat Name: BECK FIELD Department: ED Room: Gender: F Interior Horticulturist: DIANA : 1990 Requested By: RACHELLE VELAZQUEZ Order Number: [id number] Reading MD: Measurements Intervals [place] Rate: 104 P: 62 RI: 122 QRS: 58 QRSD: 89 T: -75 QT: 392 QTc: 516 Interpretive Statements Sinus tachycardia Abnormal T, consider ischemia, diffuse leads Prolonged QT interval Baseline wander in lead(s) V3,V4 Please click the below link to view image of tracing.
--- NOTE | 2025-03-14 18:54 | ECG ---
[facility] Test Date: 2025-03-14 Test Time: 14:32:59 Pat Name: BECK FIELD Department: ED Room: Gender: F Casino Worker: DIANA : 1990 Requested By: RACHELLE VELAZQUEZ Order Number: [id number] Reading MD: Measurements Intervals [place] Rate: 106 P: 75 NE: 131 QRS: 89 QRSD: 87 T: -74 QT: 383 QTc: 509 Interpretive Statements Sinus tachycardia Abnormal T, consider ischemia, diffuse leads Prolonged QT interval Please click the below link to view image of tracing.
[2025-03-14 20:15] VITALS: PULSE 107; RESP 22; O2SAT 100
--- NOTE | 2025-03-14 23:11 | DVHINCON2 ---
Date of service: Mar 14, 2025 Referring Physician Destinee Reason for Consultation Elevated troponin History of Present Illness This is a 34 year old female with a PMH of Mixed connective tissue disease who presented to the ED from urgent care due to abnormal lab values labs. Patient had complaints of dry cough and dizziness. Patient reports that she did not eat for 2 days and went to and that they informed her that her platelets are at 10 and was advised to present to the ED. WBC 9, HGB 8.2, PLT 27, NA 133, K 3.2, BUN 18, MECHANICAL METER TESTER 1.34, TROP 692 > 691, AST 103, ALT 18, T bili 1.3. Patient was admitted t the hospital, I am asked to consult on this patient. Allergies: Coded Allergies: NO KNOWN ALLERGIES (Unverified , 11/24/20) Home Meds Active Scripts Cephalexin Monohydrate (Cephalexin) 500 Mg Tab, 1 TAB PO QID, #40 TAB Prov:MARIE HOOKS MD 12/01/24 Ibuprofen Micronized (MOTRIN TABLET) 600 Mg Tb, 600 MG PO TID PRN, #40 TAB *Black box warning-NSAIDS can increase risk of MS & hypertension, GI irritation, ulceration, bleed, perferation. Do not use post cardiac surgery. Use short duration/lowest effective dose. Prov:MARIE HOOKS MD 12/01/24 Fluconazole (Diflucan) 150 Mg Tab, 1 TAB PO ONCE for 14 Days, #2 TAB Take once weekly for two weeks Prov:CANDY FRANCIS 07/24/24 Clotrimazole (Topical) (EQ ANTIFUNGAL) 1 % Cre, 1 % EX BID for 28 Days, #1 CRE Prov:CANDY FRANCIS 07/24/24 Ibuprofen Micronized (Ibuprofen) 600 Mg Tab, 600 MG PO Q8HPRN PRN, #20 TAB Prov:CANDY FRANCIS 07/24/24 Methocarbamol (Methocarbamol) 500 Mg Tab, 500 MG PO BID, #20 TAB Prov:PATRICIA CAIN 02/10/24 Ibuprofen (Ibuprofen) 800 Mg Tab, 1 TAB PO TID, #30 TAB Prov:PATRICIA CAIN 02/10/24 Ibuprofen (Ibuprofen) 800 Mg Tab, 1 TAB PO TID PRN for 7 Days, #21 TAB 1 Refill Prov:JESSY VELEZ ORTHOPEDIC DENTIST 09/25/23 Methocarbamol (Methocarbamol) 500 Mg Tab, 500 MG PO BID, #20 TAB Prov:PATRICIA CAIN 09/24/22 Ibuprofen (Ibuprofen) 600 Mg Tab, 600 MG PO TID, #30 TAB Prov:PATRICIA CAIN 09/24/22 Reported Medications Heparin Sodium (Porcine) ((None)) 10 Units/Ml Ij, 10 UNITS IV 10/21/13 Review of Systems Constitutional: denies: chills, diaphoresis, fatigue, fever, malaise, sweats, weakness, others EENTM: denies: blurred vision, double vision, ear bleeding, ear discharge, ear drainage, ear pain, ear ringing, eye pain, eye redness, hearing loss, mouth pain, mouth swelling, nasal discharge, nose bleeding, nose congestion, nose pain, photophobia, tearing, throat pain, throat swelling, voice changes, others Respiratory: reports: cough; denies: hemoptysis, orthopnea, SOB at rest, shortness of breath, SOB with excertion, stridor, wheezing, others Cardiovascular: denies: chest pain, dizzy spells, diaphoresis, Dyspnea on exertion, edema, irregular heart beat, left arm pain, lightheadedness, palpitations, PND, syncope, others Gastrointestinal: denies: abdomen distended, abdominal pain, blood streaked bowels, constipated, diarrhea, dysphagia, difficulty swallowing, hematemesis, melena, nausea, poor appetite, poor fluid intake, rectal bleeding, rectal pain, vomiting, others Genitourinary: denies: abnormal vagina bleeding, burning, dyspareunia, dysuria, flank pain, frequency, hematuria, incontinence, pain, , vagina discharge, urgency, others Neurological: reports: dizziness; denies: fainting, headache, left sided numbness, left sided weakness, numbness, paresthesia, pre-existing deficit, right sided numbness, right sided weakness, seizure, speech problems, tingling, tremors, weakness, others Musculoskeletal: denies: back pain, gout, joint pain, joint swelling, muscle pain, muscle stiffness, neck pain, others Integumetry: denies: bruises, change in color, change in hair/nails, dryness, laceration, lesions, lumps, rash, wounds, others Allergic/Immunocompromised: denies: Difficulty Healing, Frequent Infections, Hives, Itching, others Hematologic/Lymphatic: denies: anemia, blood clots, easy bleeding, easy bruising, swollen glands, others Endocrine: denies: excessive hunger, excessive sweating, excessive thirst, excessive urination, flushing, intolerance to cold, intolerance to heat, unexplained weight gain, unexplained weight loss, others Psychiatric: denies: anxiety, bipolar disorder, depression, hopeless, panic disorder, schizophrenia, sleepless, suicidal, others All Other Systems: Reviewed and Negative Vital Signs Vital Signs Date Time Temp Pulse Resp B/P (MAP) Pulse Ox O2 Delivery O2 Flow Rate FiO2 03/14/25 20:15 107 22 100 Room Air* 0 21 03/14/25 19:43 98.4 129/86 (100) 98.4 Physical Exam General Appearance: No Apparent Distress, Normal HEENT: Normal ENT Inspection, Pharynx Normal, TMs Normal Neck: Full Range of Motion, Non-Tender, Normal, Normal Inspection Respiratory: Chest Non-Tender, Lungs Clear, No Accessory Muscle Use, No Respiratory Distress, Normal Breath Sounds Cardiovascular: No Edema, No JVD, No Murmur, No Gallop, Normal Peripheral Pulses, Regular Rate/Rhythm Breast Exam: Deferred Gastrointestinal: No Organomegaly, Non Tender, No Pulsatile Mass, Normal Bowel Sounds, Soft Genitalia: Deferred Pelvic: Deferred Rectal: Deferred Extremities: No calf tenderness, Normal capillary refill, Normal inspection, Normal range of motion, Non-tender, No pedal edema Musculoskeletal : Apperance: Normal Neurologic: Alert, analysis mgr II-XII nml as Tested, No Motor Deficits, Normal Affect, Normal Mood, No Sensory Deficits Cerebellar Function: Normal Reflexes: Normal Skin: Dry, Normal Color, Warm Lymphatic: No Adenopathy Labs/Diagnostic Data Labs Test 03/14/25 15:47 03/14/25 12:39 Range/Units Troponin I High Sensitivity 661 *H </=34 ng/L White Blood Count 9.0 4.4-10.8 10^3/uL Red Blood Count 2.48 L 4.0-5.20 10^6/uL Hemoglobin 8.2 L 12.2-16.2 g/dL Hematocrit 24.0 L 36.0-46.0 % Mean Corpuscular Volume 96.7 80.0-100.0 fL Mean Corpuscular Hemoglobin 33.1 H 28.0-32.0 pg Mean Corpuscular Hemoglobin Concent 34.2 32.0-36.0 g/dL Red Cell Distribution Width 17.9 H 11.8-14.3 % Platelet Count 27 L 140-450 10^3/uL Mean Platelet Volume 8.6 6.9-10.8 fL Neutrophils (%) (Auto) 71.8 37.0-80.0 % Lymphocytes (%) (Auto) 18.2 10.0-50.0 % Monocytes (%) (Auto) 9.4 0.0-12.0 % Eosinophils (%) (Auto) 0.2 0.0-7.0 % Basophils (%) (Auto) 0.4 0.0-2.0 % Neutrophils # (Auto) 6.5 1.6-8.6 10 ^3/uL Lymphocytes # (Auto) 1.6 0.4-5.4 10 ^3/uL Monocytes # (Auto) 0.8 0-1.3 10 ^3/uL Eosinophils # (Auto) 0 0-0.8 10 ^3/uL Basophils # (Auto) 0 0-0.2 10 ^3/uL Nucleated Red Blood Cells 2.4 % Platelet Estimate Markedly decreased Large Platelets Few Anisocytosis (manual) Slight Schistocytes Few Sodium Level 133 L 136-145 mmol/L Potassium Level 3.2 L 3.5-5.1 mmol/L Chloride Level 101 98-107 mmol/L Carbon Dioxide Level 22 20-31 mmol/L Anion Gap 10 5-15 Blood Urea Nitrogen 18 9-23 mg/dL Creatinine 1.34 H 0.550-1.02 mg/dL Glomerular Filtration Rate Calc 54 >90 mL/min BUN/Creatinine Ratio 13.4 10.0-20.0 Serum Glucose 94 74-106 mg/dL Calcium Level 9.7 8.7-10.4 mg/dL Total Bilirubin 1.3 H 0.2-1.0 mg/dL Aspartate Amino Transferase (AST) 103 H 13-40 U/L Alanine Aminotransferase (ALT) 18 7-40 U/L Alkaline Phosphatase 46 46-116 U/L Total Protein 7.6 5.7-8.2 g/dL Albumin 4.3 3.2-4.8 g/dL Assessment Chest pain. Elevated troponin. Thrombocytopenia. Anemia. Plan/Recommendation I agree with your ongoing assessment and care of plan. Aspirin. Morphine for pain management. Trend troponin. Additional plan as per the hospital course. A total of 45 minutes was spent reviewing the patient record, examining the patient, making a diagnostic and therapeutic plan, discussing this plan with medical personnel, following up on diagnostic studies and following the patient for clinical stability excluding any and all procedures. At least 50% of this time was spent in direct, [id number] contact. Plan discussed with: Patient DINESH LOMELI MD Mar 14, 2025 20:49
[2025-03-15 04:10] VITALS: BP 150/105; PULSE 118; RESP 12; TEMP 98.1; O2SAT 98
== END 2025-03-15 04:29 | disposition short-term general hospital (02) ==
LOC: ER 11:34 → EDBD 11:34 → ER 03-15 04:29
DX: D64.9 Anemia, unspecified (principal); D69.6 Thrombocytopenia, unspecified; R79.89 Other specified abnormal findings of blood chemistry; Z79.1 Long term (current) use of non-steroidal anti-inflammatories (NSAID); Z79.899 Other long term (current) drug therapy
CPT/HCPCS: 36415; 80053; 82248; 83010; 83615; 84484; 85025; 85045; 86850; 86900; 86901; 93005; 96374; 99291; J2270

== ENCOUNTER 2025-04-09 08:12 | Emergency (ER) | payer OTHER ==
[~2025-04-09] VITALS: Ht 149.9 cm; Wt 65.0 kg
--- NOTE | 2025-04-09 08:22 | ED.PDOC ---
HPI Comments 34 year old female presents to the ED with a chief complaint of chest pain onset today (04/09/25). Patient states she began experiencing chest pain, substernal with no radiation, described as a tightness sensation. Patient is also experiencing shortness of breath. Patient was seen in this ED about 1 month ago, transferred to [place] and was discharged on 02/21/25, received blood transfusion and platelets. PMHx Lupus. Denies dizziness, blurry vision, nausea, vomiting, diarrhea, fevers, chills. No other symptoms or modifying factors present at this time. Time Seen by MD: 08:18 Primary Care Provider: UNKNOWN Reviewed Notes: Medications, Allergies Allergies: Coded Allergies: NO KNOWN ALLERGIES (Unverified , 11/24/20) Home Meds Active Scripts Bumetanide (Bumex) 0.5 Mg Tab, 0.5 MG PO DAILY for 5 Days, #5 TAB 0 Refills Prov:TEA GOMEZ DO 04/09/25 Amoxicillin & Pot Clavulanate (AUGMENTIN TABLET) 875 Mg Tb, 875 MG PO BID for 5 Days, #10 TAB 0 Refills Prov:TEA GOMEZ DO 04/09/25 Cephalexin Monohydrate (Cephalexin) 500 Mg Tab, 1 TAB PO QID, #40 TAB Prov:MARIE HOOKS MD 12/01/24 Ibuprofen Micronized (MOTRIN TABLET) 600 Mg Tb, 600 MG PO TID PRN, #40 TAB *Black box warning-NSAIDS can increase risk of [place] & hypertension, GI irritation, ulceration, bleed, perferation. Do not use post cardiac surgery. Use short duration/lowest effective dose. Prov:MARIE HOOKS MD 12/01/24 Fluconazole (Diflucan) 150 Mg Tab, 1 TAB PO ONCE for 14 Days, #2 TAB Take once weekly for two weeks Prov:CANDY FRANCIS 07/24/24 Clotrimazole (Topical) (EQ ANTIFUNGAL) 1 % Cre, 1 % EX BID for 28 Days, #1 CRE Prov:CANDY FRANCIS 07/24/24 Ibuprofen Micronized (Ibuprofen) 600 Mg Tab, 600 MG PO Q8HPRN PRN, #20 TAB Prov:CANDY FRANCIS 07/24/24 Methocarbamol (Methocarbamol) 500 Mg Tab, 500 MG PO BID, #20 TAB Prov:PATRICIA CAIN PHILIP 02/10/24 Ibuprofen (Ibuprofen) 800 Mg Tab, 1 TAB PO TID, #30 TAB Prov:PATRICIA CAIN PHILIP 02/10/24 Ibuprofen (Ibuprofen) 800 Mg Tab, 1 TAB PO TID PRN for 7 Days, #21 TAB 1 Refill Prov:JESSY VELEZ PROSTHETICS TECHNICIAN 09/25/23 Methocarbamol (Methocarbamol) 500 Mg Tab, 500 MG PO BID, #20 TAB Prov:PATRICIA CAIN PHILIP 09/24/22 Ibuprofen (Ibuprofen) 600 Mg Tab, 600 MG PO TID, #30 TAB Prov:PATRICIA CAIN PHILIP 09/24/22 Reported Medications Heparin Sodium (Porcine) ((None)) 10 Units/Ml Ij, 10 UNITS IV 10/21/13 Information Source: Patient Mode of Arrival: Ambulatory Severity: Moderate Timing: Hours Duration: Since onset Prehospital treatment: None Location: Substernal Radiation: No Radiation Quality: Tightness Onset: At Rest Cardiac Risk Factors: None PE Risk Factors: None History of: Similar pain in past Modifying Factors: Nothing Associated Signs and Symptoms: SOB Past Medical History PAST MEDICAL HISTORY: Cancer (Lupus) Surgical History: Denies all surgeries EPIC ANESTHESIA ANALYST History: No Pertinent EPIC ANESTHESIA ANALYST History Family History Family History: Reviewed,noncontributory to illness, Unknown Social History Smoker: Non-Smoker Alcohol: Denies ETOH Use Drugs: Denies Drug Use Lives In: Home Constitutional: denies: chills, diaphoresis, fatigue, fever, malaise, sweats, weakness, others EENTM: denies: blurred vision, double vision, ear bleeding, ear discharge, ear drainage, ear pain, ear ringing, eye pain, eye redness, hearing loss, mouth pain, mouth swelling, nasal discharge, nose bleeding, nose congestion, nose pain, photophobia, tearing, throat pain, throat swelling, voice changes, others Respiratory: reports: shortness of breath; denies: cough, hemoptysis, orthopnea, SOB at rest, SOB with excertion, stridor, wheezing, others Cardiovascular: reports: chest pain; denies: dizzy spells, diaphoresis, Dyspnea on exertion, edema, irregular heart beat, left arm pain, lightheadedness, palpitations, PND, syncope, others Gastrointestinal: denies: abdomen distended, abdominal pain, blood streaked bowels, constipated, diarrhea, dysphagia, difficulty swallowing, hematemesis, melena, nausea, poor appetite, poor fluid intake, rectal bleeding, rectal pain, vomiting, others Genitourinary: denies: abnormal vagina bleeding, burning, dyspareunia, dysuria, flank pain, frequency, hematuria, incontinence, pain, , vagina discharge, urgency, others Neurological: denies: dizziness, fainting, headache, left sided numbness, left sided weakness, numbness, paresthesia, pre-existing deficit, right sided numbness, right sided weakness, seizure, speech problems, tingling, tremors, weakness, others Musculoskeletal: denies: back pain, gout, joint pain, joint swelling, muscle pa in, muscle stiffness, neck pain, others Integumetry: denies: bruises, change in color, change in hair/nails, dryness, laceration, lesions, lumps, rash, wounds, others Allergic/Immunocompromised: denies: Difficulty Healing, Frequent Infections, Hives, Itching, others Hematologic/Lymphatic: denies: anemia, blood clots, easy bleeding, easy bruising, swollen glands, others Endocrine: denies: excessive hunger, excessive sweating, excessive thirst, excessive urination, flushing, intolerance to cold, intolerance to heat, unexplained weight gain, unexplained weight loss, others Psychiatric: denies: anxiety, bipolar disorder, depression, hopeless, panic disorder, schizophrenia, sleepless, suicidal, others All Other Systems: Reviewed and Negative Physical Exam General Appearance: No Apparent Distress, Normal HEENT: Normal ENT Inspection, Pharynx Normal, TMs Normal Neck: Full Range of Motion, Non-Tender, Normal, Normal Inspection Respiratory: Chest Non-Tender, Lungs Clear, No Accessory Muscle Use, No Respiratory Distress, Normal Breath Sounds Cardiovascular: No Edema, No JVD, No Murmur, No Gallop, Normal Peripheral Pulses, Regular Rate/Rhythm Breast Exam: Deferred Gastrointestinal: No Organomegaly, Non Tender, No Pulsatile Mass, Normal Bowel Sounds, Soft Genitalia: Deferred Pelvic: Deferred Rectal: Deferred Extremities: No calf tenderness, Normal capillary refill, Normal inspection, Normal range of motion, Non-tender, No pedal edema Musculoskeletal : Apperance: Normal Neurologic: Alert, tufting machine operator II-XII nml as Tested, No Motor Deficits, Normal Affect, Normal Mood, No Sensory Deficits Cerebellar Function: Normal Reflexes: Normal Skin: Dry, Normal Color, Warm Lymphatic: No Adenopathy Was a procedure done? Was a procedure done?: No CP Differential Dx Differential Diagnosis: [place] Differential Diagnosis: CHF, HTN Essential, HTN Encephalopathy, Medical NonCompliance, Induced Differential Diagnosis: Gastritis, Myocardial Infarction, Pericarditis X-Ray, Labs, Meds, VS Vital Signs Date Time Temp Pulse Resp B/P (MAP) Pulse Ox O2 Delivery O2 Flow Rate FiO2 04/09/25 16:07 98.0 04/09/25 14:00 98 15 142/93 (109) 97 04/09/25 13:13 98.1 04/09/25 12:00 98 16 180/102 (128) 96 04/09/25 12:00 18 97 Nasal Cannula* 1 24 04/09/25 11:12 175/115 04/09/25 11:11 175/115 04/09/25 11:00 175/115 04/09/25 11:00 93 25 175/115 (135) 89 04/09/25 09:34 175/127 04/09/25 09:28 89 04/09/25 08:45 98.1 93 17 158/102 (120) 94 98.1 04/09/25 08:45 Room Air* 0 21 04/09/25 08:18 95 04/09/25 08:15 98.6 92 18 175/114 (134) 95 98.6 173/109 (130) Lab Test 04/09/25 14:04 04/09/25 12:02 04/09/25 09:25 04/09/25 08:37 Range/Units Influenza Type A Antigen Negative Negative Influenza Type B Antigen Negative Negative SARS-CoV-2 Antigen (Rapid) Negative NEGATIVE Troponin I High Sensitivity 23 25 24 </=34 ng/L White Blood Count 11.8 H 4.4-10.8 10^3/uL Red Blood Count 2.78 L 4.0-5.20 10^6/uL Hemoglobin 9.6 L 12.2-16.2 g/dL Hematocrit 28.9 L 36.0-46.0 % Mean Corpuscular Volume 103.9 H 80.0-100.0 fL Mean Corpuscular Hemoglobin 34.6 H 28.0-32.0 pg Mean Corpuscular Hemoglobin Concent 33.3 32.0-36.0 g/dL Red Cell Distribution Width 18.5 H 11.8-14.3 % Platelet Count 102 L 140-450 10^3/uL Mean Platelet Volume 8.0 6.9-10.8 fL Neutrophils (%) (Auto) 88.0 H 37.0-80.0 % Lymphocytes (%) (Auto) 7.7 L 10.0-50.0 % Monocytes (%) (Auto) 3.4 0.0-12.0 % Eosinophils (%) (Auto) 0.6 0.0-7.0 % Basophils (%) (Auto) 0.3 0.0-2.0 % Neutrophils # (Auto) 10.4 H 1.6-8.6 10 ^3/uL Lymphocytes # (Auto) 0.9 0.4-5.4 10 ^3/uL Monocytes # (Auto) 0.4 0-1.3 10 ^3/uL Eosinophils # (Auto) 0.1 0-0.8 10 ^3/uL Basophils # (Auto) 0 0-0.2 10 ^3/uL Nucleated Red Blood Cells 0.1 % Sodium Level 139 136-145 mmol/L Potassium Level 4.6 3.5-5.1 mmol/L Chloride Level 108 H 98-107 mmol/L Carbon Dioxide Level 22 20-31 mmol/L Anion Gap 9 5-15 Blood Urea Nitrogen 46 H 9-23 mg/dL Creatinine 3.01 H 0.550-1.02 mg/dL Glomerular Filtration Rate Calc 20 >90 mL/min BUN/Creatinine Ratio 15.3 10.0-20.0 Serum Glucose 106 74-106 mg/dL Calcium Level 9.5 8.7-10.4 mg/dL B-Type Natriuretic Peptide 760.80 0-100 pg/mL Beta HCG, Quantitative 0.7 L 1.5-4.2 mIU/mL Test 04/09/25 08:22 Range/Units Urine Color Colorless Yellow Urine Clarity Clear Clear Urine pH 5.5 5.0-9.0 Urine Specific Happy 1.011 1.001-1.035 Urine Protein 1+ H Negative Urine Ketones Negative Negative Urine Blood Negative Negative /uL Urine Nitrite 2+ H Negative Urine Bilirubin Negative Negative Urine Urobilinogen Normal Negative mg/dL Urine Leukocyte Esterase 1+ Negative /uL Urine RBC 1 0 - 4 /hpf Urine WBC Clumps Present None Seen /hpf Urine Microscopic WBC 20 H 0-5 /HPF Urine Squamous Epithelial Cells Few <5 /hpf Urine Amorphous Crystals Few None Seen /hpf Urine Bacteria Few H None Seen /hpf Urine Glucose Normal Normal mg/dL Current Medications Medications (Trade) Dose Ordered Sig/Kari Route Start Time Stop Time Status Last Admin Aspirin 324 mg ONCE ONCE PO 04/09/25 09:30 04/09/25 09:31 DC 04/09/25 09:35 Ketorolac Tromethamine (Toradol Injection) 15 mg ONCE ONCE IV 04/09/25 09:30 04/09/25 11:20 DC 04/09/25 09:37 Nitroglycerin (Ntrostat Sublingual) 0.4 mg ONCE ONCE SL 04/09/25 09:30 04/09/25 09:31 DC 04/09/25 09:34 Ceftriaxone Sodium 50 ml @ 100 mls/hr ONCE ONCE IV 04/09/25 10:45 04/09/25 11:14 DC 04/09/25 11:18 Furosemide (Lasix Injection) 20 mg ONCE ONCE IV 04/09/25 10:45 04/09/25 11:02 DC 04/09/25 11:11 Hydralazine HCl (Apresoline Injection) 10 mg ONCE ONCE IV 04/09/25 10:45 04/09/25 11:02 DC 04/09/25 11:12 Azithromycin 250 ml @ 125 mls/hr ONCE ONCE IV 04/09/25 14:00 04/09/25 15:59 DC 04/09/25 14:22 Acetaminophen (Tylenol Tablet Or Capsule) 1,000 mg ONCE ONCE PO 04/09/25 12:45 04/09/25 13:04 DC 04/09/25 13:13 Sodium Chloride 250 ml @ 1,000 mls/hr Q15M ONCE IV 04/09/25 16:00 04/09/25 16:22 DC 04/09/25 16:[address] [address] Ph: [phone] DIAGNOSTIC IMAGING Diagnostic Imaging Report : [id number] Signed PATIENT: BECK FIELD ACCT: [id number] UNIT: [id number] : 1990 LOC: ER ROOM / BED: / AGE / SEX: 34 / F ADM STATUS: REG ER SERVICE 8 ORDERING PHYSICIAN: MYNOR GIRON MD PROCEDURE(s): CXRP - CHEST PORTABLE REASON: chest pain ORDER NUMBER(s): [id number], ACCESSION NUMBER(s): [id number] EXAM: XY CHEST PORTABLE HISTORY: chest pain COMPARISON: CXR dated 09/25/23. TECHNIQUE: Portable upright AP view of the chest was performed. FINDINGS: There are diffuse bilateral interstitial opacities. No pneumothorax. The heart is enlarged. There is a metallic left nipple piercing. IMPRESSION: Cardiomegaly and diffuse interstitial opacities likely due to CHF exacerbation. ATED BY: WILLIAM FRANZ MD DICTATED DATE/TIME: 04/09/25902 SIGNED BY: WILLIAM FRANZ MD SIGNED DATE/TIME: 04/09/25902 CC: Time of 1ST Reevaluation: 08:48 Reevaluation 1ST: Unchanged Patient Education/Counseling: Diagnosis, Treatment, Prognosis Family Education/Counseling: Diagnosis, Treatment, Prognosis Additional Information The following tests were ordered, and results were reviewed by me: BMP, BNP, CB C, TROP -x3, EKG -x3, UA, XY CHEST Additional Information was gathered from interviewing the following independent historians: RELATIVE I reviewed and agreed with the following test results read by other providers: XY CHEST I discussed treatment and results with medical personnel and: patient, relative Comprehensive systems review obtained and negative except for what is stated in the HPI. Departure 1 Departure Time of Disposition: 17:31 (Patient presented with hypertension and symptoms concerning for hypertensive emergency. Patient is receiving iv blood pressure medications requiring intensive monitoring. Data: 1. I ordered and reviewed the result of at least 3 labs including a CBC, BMP, and Urinalysis. 2. I independently interpreted the following tests: CT Brain: Which appears benign. EKG which is Normal Sinus RhythmRisk:This patient has a high risk of morbidity due to further diagnostic testing or treatment and may suffer from an acute cardiac disorder. Workup reveals hypertensive emergency and patient should be admitted for further workup. and possible expert consultation. ) Impression: Primary Impression: Acute chest pain Additional Impressions: Hypertensive emergency HIEN (acute kidney injury) Lupus Disposition: 09 ADMITTED INPATIENT Admit to: Tele Condition: Guarded e-Prescriptions Bumetanide (Bumex) 0.5 Mg Tab 0.5 MG PO DAILY for 5 Days, #5 TAB 0 Refills Prov: TEA GOMEZ DO 04/09/25 Amoxicillin & Pot Clavulanate (AUGMENTIN TABLET) 875 Mg Tb 875 MG PO BID for 5 Days, #10 TAB 0 Refills Prov: TEA GOMEZ DO 04/09/25 Critical Care Note Critical Care Time?: Yes Critical care comment: Hypertensive emergency Authorized and Performed by: Mynor Giron MD Total critical care time: Approximately 39 minutes Due to a high probability of clinically significant, life threatening deterioration, the patient required my highest level of preparedness to intervene emergently and I personally spent this critical care time directly and personally managing the patient. This critical care time included obtaining a history; examining the patient; pulse oximetry; ordering and review of studies; arranging urgent treatment with development of a management plan; evaluation of patient's response to treatment; frequent reassessment; and, discussions with other providers. This critical care time was performed to assess and manage the high probability of imminent, life-threatening deterioration that could result in multi-organ failure. It was exclusive of separately billable procedures and treating other patients and teaching time. Please see my other sections and the rest of the note for further information on patient assessment and treatment. Stability Stability form required: No Heart Score Heart Score: Heart Score Response (Comments) Value History Moderate Suspicious 1 EKG Repolarization Disturb 1 Age <45 0 Risk Factors 1 or 2 risk factors 1 Troponin Normal limit 0 Total 3 I personally scribed for MYNOR GIRON MD ([email or web address]) on 04/09/25 at 08:22. Electronically submitted by Nerissa Kumar ([email or web address]). I personally scribed for MYNOR GIRON MD ([email or web address]) on 04/09/25 at 08:39. Electronically submitted by Nerissa Kumar ([email or web address]). I personally scribed for MYNOR GIRON MD ([email or web address]) on 04/09/25 at 08:40. Electronically submitted by Nerissa Kumar ([email or web address]). I personally scribed for MYNOR GIRON MD ([email or web address]) on 04/09/25 at 09:41. Electronically submitted by Nerissa Kumar ([email or web address]). MYNOR GIRON MD April 09, 2025 08:22
[2025-04-09 08:50] LABS: Basophils # (auto) 0 10 ^3/uL (0-0.2); Eosinophils # (auto) 0.1 10 ^3/uL (0-0.8); Eosinophils % (auto) 0.6 % (0.0-7.0); Hematocrit 28.9 % (36.0-46.0); Lymphocytes # (auto) 0.9 10 ^3/uL (0.4-5.4); Mean Corpuscular Volume 103.9 fL (80.0-100.0); Monocytes # (auto) 0.4 10 ^3/uL (0-1.3)
[2025-04-09 08:53] LABS: Basophils % (auto) 0.3 % (0.0-2.0); Hemoglobin 9.6 g/dL (12.2-16.2); Lymphocytes % (auto) 7.7 % (10.0-50.0); Mean Corpuscular Hemoglobin 34.6 pg (28.0-32.0); Mean Corpuscular Hgb Conc. 33.3 g/dL (32.0-36.0); Monocytes % (auto) 3.4 % (0.0-12.0); Neutrophils # (auto) 10.4 10 ^3/uL (1.6-8.6); Nucleated Red Blood Cells % 0.1 %; Platelet Count (auto) 102 10^3/uL (140-450); Red Blood Cells 2.78 10^6/uL (4.0-5.20); Red Cell Distribution Width 18.5 % (11.8-14.3); White Blood Cell 11.8 10^3/uL (4.4-10.8)
--- NOTE | 2025-04-09 09:05 | DVH ---
EXAM: XY CHEST PORTABLE HISTORY: chest pain COMPARISON: CXR dated 09/25/23. TECHNIQUE: Portable upright AP view of the chest was performed. FINDINGS: There are diffuse bilateral interstitial opacities. No pneumothorax. The heart is enlarged. There is a metallic left nipple piercing. IMPRESSION: Cardiomegaly and diffuse interstitial opacities likely due to CHF exacerbation.
[2025-04-09 09:10] LABS: Chloride 108 mmol/L (98-107); Potassium 4.6 mmol/L (3.5-5.1); Sodium 139 mmol/L (136-145)
[2025-04-09 09:11] LABS: Anion Gap 9 (5-15); Calcium 9.5 mg/dL (8.7-10.4); Carbon Dioxide 22 mmol/L (20-31)
[2025-04-09 09:12] LABS: Urine Amorphous Crystal FEW /hpf (None Seen); Urine Bacteria FEW /hpf (None Seen); Urine Blood Negative /uL (Negative); Urine Clarity Clear (Clear); Urine Color Colorless (Yellow); Urine Protein, UAD 1+ (Negative); Urine Specific Gravity 1.011 (1.001-1.035); Urine Squamous Epithelial Cell FEW /hpf (<5); Urine Urobilinogen Normal (Negative); Urine WBC 20 /HPF (0-5); Urine WBC Clumps PRESENT /hpf (None Seen); Urine pH 5.5 (5.0-9.0)
[2025-04-09 09:16] LABS: BUN/Creatinine Ratio 15.3 (10.0-20.0); Glucose 106 mg/dL (74-106)
[2025-04-09 09:20] LABS: Blood Urea Nitrogen 46 mg/dL (9-23)
--- NOTE | 2025-04-09 09:29 | ECG ---
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
[2025-04-09] MEDS: NITROGLYCERIN 0.4 MG SL TAB SL ONE (09:34)
[2025-04-09] MEDS: ASPirin 81 mg TAB PO ONE (09:35)
[2025-04-09] MEDS: KETOROLAC TROMETH 30 MG/ML 1ML VIAL IV ONE (09:37)
[2025-04-09] MEDS: FUROSEMIDE 20 MG/2 ML VIAL IV ONE (11:11)
[2025-04-09] MEDS: hydrALAZINE HCL 20 MG/ML VL IV ONE (11:12)
[2025-04-09] MEDS: cefTRIAXone 1GM/50ML D5W 50 ML IV ONE ×2 (11:18→11:45)
[2025-04-09] MEDS: IPRATROPIUM BROM 0.5 MG/2.5ML INH SOL NEB ONE (11:45)
[2025-04-09] MEDS: ALBUTEROL SULF 2.5 MG/0.5ML(0.5%) NEB SOLN NEB ONE (11:45)
[2025-04-09] MEDS: ALBUTEROL SULF 2.5 MG/0.5ML(0.5%) NEB SOLN ONE (11:59)
[2025-04-09] MEDS: IPRATROPIUM BROM 0.5 MG/2.5ML INH SOL ONE (11:59)
--- NOTE | 2025-04-09 12:29 | DVH ---
INDICATION: HIEN TECHNIQUE: Multiple real-time sonographic images of the kidneys and bladder were obtained. COMPARISON: None FINDINGS: The right kidney measures 11.1 cm in length, which is normal in size. There is increased ec hotexture of the right kidney. No hydronephrosis. The left kidney measures 10.8 cm in length, which is normal in size. There is increased echotexture o f the left kidney. No hydronephrosis. No large intraluminal masses are seen in the bladder. Prior to voiding the bladder volume measures vo lume 345.7 cc. IMPRESSION: 1. No hydronephrosis. Increased echotexture of the kidneys which may represent medical renal disease.
--- NOTE | 2025-04-09 12:42 | DVH ---
Bilateral lower extremity venous duplex Clinical History: SOB, rule out DVT Comparison: None Technique: Duplex Doppler evaluation of the deep venous systems of both lower extremities from the common femora l veins to the popliteal veins including color Doppler and spectral/pulsed waveform analysis was perf ormed. Findings: RIGHT SIDE: The common femoral vein demonstrates appropriate compressibility and waveform variability. There is compressibility/patency of the great saphenous vein at the proximal thigh. The femoral vein demonstrates appropriate compressibility and waveform variability. The deep femoral vein demonstrates appropriate compressibility and waveform variability. The popliteal vein demonstrates appropriate compressibility and waveform variability. There is normal compressibility at the tibioperoneal trunk. LEFT SIDE: The common femoral vein demonstrates appropriate compressibility and waveform variability. There is compressibility/patency of the great saphenous vein at the proximal thigh. The femoral vein demonstrates appropriate compressibility and waveform variability. The deep femoral vein demonstrates appropriate compressibility and waveform variability. The popliteal vein demonstrates appropriate compressibility and waveform variability. There is normal compressibility at the tibioperoneal trunk. Impression: No right or left femoropopliteal venous thrombosis.
[2025-04-09] MEDS: ACETAMINOPHEN 500 MG TAB or CAP PO ONE (13:13)
[2025-04-09] MEDS: AZITHROMYCIN 500MG/ 250ML 250 ML IV ONE (14:22)
[2025-04-09 14:37] LABS: Rapid Influenza A Negative (Negative); Rapid Influenza B Negative (Negative)
[2025-04-09 14:38] LABS: COVID19 ANTIGEN SOFIA FIA NEGATIVE (NEGATIVE)
--- NOTE | 2025-04-09 14:54 | DVH ---
Procedure: CT CHEST WITHOUT CONTRAST Reason for study/Clinical History: Shortness of breath, rule out pna vs congestion Comparison Study: 12/01/2024 Exam Date: 04/09/2025 02:07 PM TECHNIQUE: Multidetector CT of the chest was performed from the lung apices to the upper abdomen with out the use of intravenous contract. Axial, coronal and sagittal multiplanar reformats were performed . Radiation Dose Information: CT Dose: CTDI volume is 7.01 mGy. Dose-length product is 230.66 mGy*cm The dose indicators for CT are the volume Computed Tomography (CT) Dose Index (CTDIvol) and the Dose Length Product (DLP), and are measured in units of mGy and mGy-cm, respectively. These indicators are not patient dose, but values generated from the CT scanner acquisition factors. The report includes radiation exposure data for exposures received during this examination. FINDINGS: Lower neck: Normal thyroid. Lungs: Patchy bilateral areas of pneumonitis involving all lung vargas. Heart/Vascular Structures: Heart size is enlarged. No pericardial effusion. Lymph Nodes: Small axillary hilar or mediastinal lymph nodes. Pleura: Small bilateral pleural effusions, right greater than left Musculoskeletal: No acute osseous abnormality. Soft tissues: Normal. Upper abdomen: Limited portions of the upper abdomen are unremarkable. IMPRESSION: 1. Cardiomegaly and patchy bilateral airspace disease with small pleural effusions. Differential diag nosis includes pulmonary edema as well as bilateral pneumonia (or possibly a combination) Radiation optimization: All CT scans at this facility use at least one of these dose optimization linda hniques: automated exposure control mA and/or kV adjustment per patient size (includes targeted exam s where dose is matched to clinical indication) or iterative reconstruction.
[2025-04-09] MEDS ORDERED: AUG875T PO (15:52)
[2025-04-09] MEDS ORDERED: BUME1TAB25 PO (15:54)
[2025-04-09 16:07] VITALS: TEMP 98
[2025-04-09] MEDS: SODIUM CHLORIDE 0.9% 250 ML IV ONE (16:37)
[2025-04-09 18:00] VITALS: BP 166/108; PULSE 98; RESP 23; O2SAT 95
--- NOTE | 2025-04-09 23:32 | DVHDS2 ---
Discharge Summary Date of Admission Date of Discharge: April 09, 2025 Labs/Diagnostic Data: Laboratory Results Test 04/09/25 14:04 04/09/25 12:02 04/09/25 08:37 04/09/25 08:22 Influenza Type A Antigen Negative (Negative) Influenza Type B Antigen Negative (Negative) SARS-CoV-2 Antigen (Rapid) Negative (NEGATIVE) Troponin I High Sensitivity 23 ng/L (</=34) White Blood Count 11.8 10^3/uL (4.4-10.8) Red Blood Count 2.78 10^6/uL (4.0-5.20) Hemoglobin 9.6 g/dL (12.2-16.2) Hematocrit 28.9 % (36.0-46.0) Mean Corpuscular Volume 103.9 fL (80.0-100.0) Mean Corpuscular Hemoglobin 34.6 pg (28.0-32.0) Mean Corpuscular Hemoglobin Concent 33.3 g/dL (32.0-36.0) Red Cell Distribution Width 18.5 % (11.8-14.3) Platelet Count 102 10^3/uL (140-450) Mean Platelet Volume 8.0 fL (6.9-10.8) Neutrophils (%) (Auto) 88.0 % (37.0-80.0) Lymphocytes (%) (Auto) 7.7 % (10.0-50.0) Monocytes (%) (Auto) 3.4 % (0.0-12.0) Eosinophils (%) (Auto) 0.6 % (0.0-7.0) Basophils (%) (Auto) 0.3 % (0.0-2.0) Neutrophils # (Auto) 10.4 10 ^3/uL (1.6-8.6) Lymphocytes # (Auto) 0.9 10 ^3/uL (0.4-5.4) Monocytes # (Auto) 0.4 10 ^3/uL (0-1.3) Eosinophils # (Auto) 0.1 10 ^3/uL (0-0.8) Basophils # (Auto) 0 10 ^3/uL (0-0.2) Nucleated Red Blood Cells 0.1 % Sodium Level 139 mmol/L (136-145) Potassium Level 4.6 mmol/L (3.5-5.1) Chloride Level 108 mmol/L (98-107) Carbon Dioxide Level 22 mmol/L (20-31) Anion Gap 9 (5-15) Blood Urea Nitrogen 46 mg/dL (9-23) Creatinine 3.01 mg/dL (0.550-1.02) Glomerular Filtration Rate Calc 20 mL/min (>90) BUN/Creatinine Ratio 15.3 (10.0-20.0) Serum Glucose 106 mg/dL (74-106) Calcium Level 9.5 mg/dL (8.7-10.4) B-Type Natriuretic Peptide 760.80 pg/mL (0-100) Beta HCG, Quantitative 0.7 mIU/mL (1.5-4.2) Urine Color Colorless (Yellow) Urine Clarity Clear (Clear) Urine pH 5.5 (5.0-9.0) Urine Specific [place] 1.011 (1.001-1.035) Urine Protein 1+ (Negative) Urine Ketones Negative (Negative) Urine Blood Negative /uL (Negative) Urine Nitrite 2+ (Negative) Urine Bilirubin Negative (Negative) Urine Urobilinogen Normal mg/dL (Negative) Urine Leukocyte Esterase 1+ /uL (Negative) Urine RBC 1 /hpf (0 - 4) Urine WBC Clumps Present /hpf (None Seen) Urine Microscopic WBC 20 /HPF (0-5) Urine Squamous Epithelial Cells Few /hpf (<5) Urine Amorphous Crystals Few /hpf (None Seen) Urine Bacteria Few /hpf (None Seen) Urine Glucose Normal mg/dL (Normal) Other Laboratory Tests 04/09/25 08:37 Brief Hx & Hospital Course: Patient is a 34-year-old female past medical history of SLE, history of psoriasis, hypertension, who presents with complaints of chest pain. EKG showed sinus rhythm. Troponin was done which was nonelevated x 3. Vitals were notable for hypertension. Chest x-ray was done which showed cardiomegaly and diffuse interstitial opacities likely due to CHF exacerbation. This was followed up with CT chest which showed bilateral small pleural effusions with concern for pulmonary edema as well as differential bilateral pneumonia. CBC was notable for leukocytosis of 11.8 hemoglobin was 9.6. Chemistry panel was notable for BUN/creatinine of 46/3.01. This is noted to be elevated from patient's baseline. Patient states she has been taking ibuprofen frequently in the last 2 weeks. Patient's baseline is noted to be creatinine 1.34 noted one month prior. Patient was treated by the ER physician with ketorolac for pain, furosemide 20 mg IV x 1 and aspirin and nitroglycerin. Patient was treated with ceftriaxone and azithromycin in the ER for concern of pneumonia. She was given a DuoNeb breathing treatment. Patient's chest pain had significantly improved after several hours of monitoring. I discussed with the patient plan to admit for further monitoring given her HIEN and concern for underlying CHF with elevated BNP noted to be 760. Patient states that she has a pending cardiology referral and would like to be discharged home and follow-up outpatient. I discussed the option of following up at [facility] urgent care the following day for repeat BMP. Patient expressed agreement and willingness in this plan. I advised her to discontinue ibuprofen at this time and only take Tylenol as needed for pain. Patient was discharged on Augmentin for 10 days for treatment of pneumonia. She was also given Bumex 0.5 mg daily for 5 days. Patient is to be referred to nephrology and cardiology. [facility] case management help arrange follow-up appointments. Patient given ER return precautions. Patient's mother is at bedside who also was in agreement with the plan. Condition at Discharge: Fair Final Diagnosis/Problems List Pneumonia with likely undelrying CHF Secondary Diagnosis: HIEN SLE Concern for underlying CHF Chest pain unlikely cardiac Discharge Disposition: Home Discharge Instruct/Medications Diet: Cardiac 2g Na,low cholest Activity: No Restrictions, As Tolerated Follow Up/Referral: Follow up at [facility] on 04/10 for repeat CBC and BMP. Follow up with cardiology as scheduled. Referral being made to nephrology. Medications: Do not take any NSAIDS (Ibuprofen, Motrin, Aspirin). Take Tylenol for pain only. Augmentin twice a day for 5 days for pneumonia. Bumex 0.5mg Daily for concern of heart failure. Discharge Statement: "Patient was advised to return to the ER or call 911 if any headaches, dizziness, shortness of breath, chest pain, abdominal pain, bleeding, fevers, or worsening of medical condition. Patient was counseled about treatment plan, medications, possible side effects, patientverbalized understanding. All questions were answered to the best of my ability. This discharge took greater then 30 minutes in planning, reviewing documentation, counseling the patient, and discussing with other team members." ASSESSMENT ASSESSMENT Assessment Pneumonia with likely undelrying CHF TEA GOMEZ DO April 09, 2025 23:32
--- NOTE | 2025-04-10 09:59 | ECG ---
[facility] Test Date: 2025-04-09 Test Time: 08:18:01 Pat Name: BECK FIELD Department: ER Room: Gender: F Manager Custom: FAY : 1990 Requested By: MYNOR GIRON Order Number: [id number] Reading MD: Measurements Intervals [place] Rate: 95 P: 42 [place]: 131 QRS: 56 QRSD: 88 T: 15 QT: 335 QTc: 421 Interpretive Statements Sinus rhythm Borderline T abnormalities, lateral leads Please click the below link to view image of tracing.
== END 2025-04-09 17:40 | disposition home or self-care (01) ==
LOC: ER 08:12
DX: N17.9 Acute kidney failure, unspecified (principal); I16.1 Hypertensive emergency; Z79.1 Long term (current) use of non-steroidal anti-inflammatories (NSAID); Z79.899 Other long term (current) drug therapy; Z20.822 Contact with and (suspected) exposure to COVID-19
CPT/HCPCS: 36415; 71045; 71250; 76775; 80048; 81001; 83880; 84484; 84702; 85025; 87426; 87804; 93005; 93970; 94640; 96361; 96365; 96366; 96367; 96375; 99285; J0360; J0456; J0696; J1885; J1940; J7030

== ENCOUNTER 2025-04-16 16:45 | Inpatient (IN) | payer OTHER ==
[~2025-04-16] VITALS: Ht 149.9 cm; Wt 66.8 kg
[~2025-04-16 16:45] MED LIST changes: +AUG875T PO; +BUME1TAB25 PO
--- NOTE | 2025-04-16 16:59 | ED.PDOC ---
HPI Comments 34 y.o female with PMHx of lupus, HTN and kidney disease, presents to the ED via EMS for an initial complaint of chest pain associated with SOB x 1 week. Patient reports pain is constant, non radiating, and rating a 9/10 on the pain scale. Patient went to see her foundry operator today but when she arrived, her BP was too high and was not seen. Patient went back home, took her BP medication but shortly after began vomiting alongside diarrhea and rectal bleeding described as bright red blood. Patient presents weak, denies any chills, fever, hematemesis, back pain, leg swelling or leg pain. Patient is not on any blood thinner including ASA. Time Seen by MD: 16:43 Primary Care Provider: BERONICAGE Reviewed Notes: Nurses Notes, Ophthalmic Surgeon Notes, Medications, Allergies Allergies: Coded Allergies: NO KNOWN ALLERGIES (Unverified , 11/24/20) Home Meds Active Scripts Bumetanide (Bumex) 0.5 Mg Tab, 0.5 MG PO DAILY for 5 Days, #5 TAB 0 Refills Prov:TEA GOMEZ DO 04/09/25 Amoxicillin & Pot Clavulanate (AUGMENTIN TABLET) 875 Mg Tb, 875 MG PO BID for 5 Days, #10 TAB 0 Refills Prov:TEA GOMEZ DO 04/09/25 Cephalexin Monohydrate (Cephalexin) 500 Mg Tab, 1 TAB PO QID, #40 TAB Prov:MARIE HOOKS MD 12/01/24 Ibuprofen Micronized (MOTRIN TABLET) 600 Mg Tb, 600 MG PO TID PRN, #40 TAB *Black box warning-NSAIDS can increase risk of [place] & hypertension, GI irritation, ulceration, bleed, perferation. Do not use post cardiac surgery. Use short duration/lowest effective dose. Prov:MARIE HOOKS MD 12/01/24 Fluconazole (Diflucan) 150 Mg Tab, 1 TAB PO ONCE for 14 Days, #2 TAB Take once weekly for two weeks Prov:CANDY FRANCIS 07/24/24 Clotrimazole (Topical) (EQ ANTIFUNGAL) 1 % Cre, 1 % EX BID for 28 Days, #1 CRE Prov:CANDY FRANCIS 07/24/24 Ibuprofen Micronized (Ibuprofen) 600 Mg Tab, 600 MG PO Q8HPRN PRN, #20 TAB Prov:CANDY FRANCIS PAC 07/24/24 Methocarbamol (Methocarbamol) 500 Mg Tab, 500 MG PO BID, #20 TAB Prov:PATRICIA CAIN PA 02/10/24 Ibuprofen (Ibuprofen) 800 Mg Tab, 1 TAB PO TID, #30 TAB Prov:PATRICIA CAIN PA 02/10/24 Ibuprofen (Ibuprofen) 800 Mg Tab, 1 TAB PO TID PRN for 7 Days, #21 TAB 1 Refill Prov:JESSY VELEZ FINANCIAL INVESTMENT MANAGER 09/25/23 Methocarbamol (Methocarbamol) 500 Mg Tab, 500 MG PO BID, #20 TAB Prov:PATRICIA CAIN PA 09/24/22 Ibuprofen (Ibuprofen) 600 Mg Tab, 600 MG PO TID, #30 TAB Prov:PATRICIA CAIN PA 09/24/22 Reported Medications Heparin Sodium (Porcine) ((None)) 10 Units/Ml Ij, 10 UNITS IV 10/21/13 Information Source: Patient, Emergency Med Personnel Mode of Arrival: EMS Severity: Moderate Timing: Weeks Duration: Since onset Location: Substernal Radiation: No Radiation Quality: Sharp Onset: At Rest Cardiac Risk Factors: HTN PE Risk Factors: None History of: None Modifying Factors: Nothing Associated Signs and Symptoms: SOB, Other Past Medical History PAST MEDICAL HISTORY: Cancer, CKF, HTN Past Medical History (Other): lupus Surgical History: Denies all surgeries WET MACHINE OPERATOR History: No Pertinent WET MACHINE OPERATOR History Family History Family History: Reviewed,noncontributory to illness, Unknown Social History Smoker: Non-Smoker Alcohol: Denies ETOH Use Drugs: Denies Drug Use Lives In: Home Constitutional: denies: chills, diaphoresis, fatigue, fever, malaise, sweats, weakness, others EENTM: denies: blurred vision, double vision, ear bleeding, ear discharge, ear drainage, ear pain, ear ringing, eye pain, eye redness, hearing loss, mouth pain , mouth swelling, nasal discharge, nose bleeding, nose congestion, nose pain, photophobia, tearing, throat pain, throat swelling, voice changes, others Respiratory: reports: SOB at rest, shortness of breath; denies: cough, hemoptysis, orthopnea, SOB with excertion, stridor, wheezing, others Cardiovascular: reports: chest pain; denies: dizzy spells, diaphoresis, Dyspnea on exertion, edema, irregular heart beat, left arm pain, lightheadedness, palpitations, PND, syncope, others Gastrointestinal: reports: diarrhea, nausea, rectal bleeding, vomiting; denies: abdomen distended, abdominal pain, blood streaked bowels, constipated, dysphagia, difficulty swallowing, hematemesis, melena, poor appetite, poor fluid intake, rectal pain, others Genitourinary: denies: abnormal vagina bleeding, burning, dyspareunia, dysuria, flank pain, frequency, hematuria, incontinence, pain, , vagina discharge, urgency, others Neurological: denies: dizziness, fainting, headache, left sided numbness, left sided weakness, numbness, paresthesia, pre-existing deficit, right sided numbness, right sided weakness, seizure, speech problems, tingling, tremors, wea kness, others Musculoskeletal: denies: back pain, gout, joint pain, joint swelling, muscle pain, muscle stiffness, neck pain, others Integumetry: denies: bruises, change in color, change in hair/nails, dryness, l aceration, lesions, lumps, rash, wounds, others Allergic/Immunocompromised: denies: Difficulty Healing, Frequent Infections, Hives, Itching, others Hematologic/Lymphatic: denies: anemia, blood clots, easy bleeding, easy bruising, swollen glands, others Endocrine: denies: excessive hunger, excessive sweating, excessive thirst, excessive urination, flushing, intolerance to cold, intolerance to heat, unexplained weight gain, unexplained weight loss, others Psychiatric: denies: anxiety, bipolar disorder, depression, hopeless, panic disorder, schizophrenia, sleepless, suicidal, others All Other Systems: Reviewed and Negative Physical Exam General Appearance: Moderate Distress HEENT: Normal ENT Inspection, Pharynx Normal, TMs Normal Neck: Full Range of Motion, Non-Tender, Normal, Normal Inspection Respiratory: Chest Non-Tender, Lungs Clear, No Accessory Muscle Use, No Respiratory Distress, Normal Breath Sounds Cardiovascular: No Edema, No JVD, No Murmur, No Gallop, Normal Peripheral Pulses, Regular Rate/Rhythm Breast Exam: Deferred Gastrointestinal: No Organomegaly, Non Tender, No Pulsatile Mass, Normal Bowel Sounds, Soft Genitalia: Deferred Pelvic: Deferred Rectal: Deferred Extremities: No calf tenderness, Normal capillary refill, Normal inspection, Normal range of motion, Non-tender, No pedal edema Musculoskeletal : Apperance: Normal Neurologic: Alert, immunohematologist II-XII nml as Tested, Motor Weakness, Normal Affect, Normal Mood, No Sensory Deficits Cerebellar Function: Normal Reflexes: Normal Skin: Dry, Normal Color, Warm Lymphatic: No Adenopathy EKG EKG : Pulse Rate (adult): 107 Cardiac Rhythm: ST Hypertrophy: ANIA Was a procedure done? Was a procedure done?: No CP Differential Dx Differential Diagnosis: N/A Differential Diagnosis: Angina, Chest Wall Pain, Costochondritis, Esophageal reflux/spasm, Gastritis, Myocardial Infarction, Pericarditis Comment Anemia, PUD, GI bleed, varices X-Ray, Labs, Meds, VS Vital Signs Date Time Temp Pulse Resp B/P (MAP) Pulse Ox O2 Delivery O2 Flow Rate FiO2 04/16/25 19:33 89 19 209/152 04/16/25 19:30 98.6 115 12 206/152 (170) 100 98.6 04/16/25 19:30 115 12 100 Room Air* 0 21 04/16/25 19:29 107 04/16/25 19:29 206/152 04/16/25 18:41 221/166 04/16/25 18:32 105 14 221/166 (184) 99 04/16/25 18:17 98.2 120 18 205/149 (167) 99 98.2 04/16/25 17:56 97 04/16/25 17:41 162/130 04/16/25 17:34 125 18 99 Room Air* 0 21 04/16/25 17:33 125 20 162/130 (141) 99 04/16/25 17:00 98.7 111 18 118/64 (82) 99 98.7 04/16/25 16:59 107 04/16/25 16:45 107 Lab Test 04/16/25 18:38 04/16/25 16:54 Range/Units Troponin I High Sensitivity 25 21 </=34 ng/L White Blood Count 18.0 H 4.4-10.8 10^3/uL Red Blood Count 4.06 4.0-5.20 10^6/uL Hemoglobin 13.3 12.2-16.2 g/dL Hematocrit 39.8 36.0-46.0 % Mean Corpuscular Volume 98.1 80.0-100.0 fL Mean Corpuscular Hemoglobin 32.9 H 28.0-32.0 pg Mean Corpuscular Hemoglobin Concent 33.5 32.0-36.0 g/dL Red Cell Distribution Width 17.9 H 11.8-14.3 % Platelet Count 47 L 140-450 10^3/uL Mean Platelet Volume 8.8 6.9-10.8 fL Neutrophils (%) (Auto) 76.1 37.0-80.0 % Lymphocytes (%) (Auto) 15.5 10.0-50.0 % Monocytes (%) (Auto) 7.8 0.0-12.0 % Eosinophils (%) (Auto) 0.1 0.0-7.0 % Basophils (%) (Auto) 0.5 0.0-2.0 % Neutrophils # (Auto) 13.7 H 1.6-8.6 10 ^3/uL Lymphocytes # (Auto) 2.8 0.4-5.4 10 ^3/uL Monocytes # (Auto) 1.4 H 0-1.3 10 ^3/uL Eosinophils # (Auto) 0 0-0.8 10 ^3/uL Basophils # (Auto) 0.1 0-0.2 10 ^3/uL Nucleated Red Blood Cells 2.2 % Platelet Estimate Decreased Prothrombin Time 9.9 9.3-11.8 sec Prothrombin Time INR 0.93 0.9-1.15 Activated Partial Thromboplast Time 26.8 24.5-34.5 SEC Sodium Level 139 136-145 mmol/L Potassium Level 3.0 L 3.5-5.1 mmol/L Chloride Level 107 98-107 mmol/L Carbon Dioxide Level 13 L 20-31 mmol/L Anion Gap 19 H 5-15 Blood Urea Nitrogen 82 *H 9-23 mg/dL Creatinine 5.06 H 0.550-1.02 mg/dL Glomerular Filtration Rate Calc 11 >90 mL/min BUN/Creatinine Ratio 16.2 10.0-20.0 Serum Glucose 146 H 74-106 mg/dL Calcium Level 8.9 8.7-10.4 mg/dL Current Medications Medications (Trade) Dose Ordered Sig/Kari Route Start Time Stop Time Status Last Admin Clonidine HCl (Catapres Tablet) 0.2 mg ONCE ONCE PO 04/16/25 17:45 04/16/25 17:46 DC 04/16/25 17:41 Potassium Chloride (Klor-Con Tablet) 40 meq ONCE ONCE PO 04/16/25 17:45 04/16/25 17:46 DC 04/16/25 17:41 Nicardipine/ Sodium Chloride 200 ml @ 50 mls/hr Q4H IV 04/16/25 19:15 04/16/25 19:29 Morphine Sulfate 4 mg ONCE ONCE IV 04/16/25 19:30 04/16/25 19:31 DC 04/16/25 19:33 Ondansetron HCl (Zofran) 4 mg ONCE ONCE IV 04/16/25 19:30 04/16/25 19:31 DC 04/16/25 19:34 IV Hep-Lock was established. The patient came in extremely hypertensive We did give the patient was clonidine 0.2 mg by mouth with no significant relief. We have now started the patient has a nicardipine drip for accelerated hypertension and hypertensive crisis The patient was given potassium 40 mEq p.o. for the hypokalemia at 3.0 The patient was given morphine 4 mg IV push and Zofran 4 mg IV push for the pain and nausea The patient's BUN came back at 82 and the creatinine of 5.06 The anion gap is elevated at 19 with a CO2 level of 13 The [place] an [place] [address] The troponin level x2 is negative At this time, the patient was being admitted to the hospitalist We did speak with the [facility] physician (Dr. Masters) The patient was being admitted by her to the ICU. We have discussed the findings with the patient and they are in agreement management. Images Reviewed?: Images reviewed and evaluated by me Time of 1ST Reevaluation: 16:54 Reevaluation 1ST: Unchanged Patient Education/Counseling: Diagnosis, Treatment, Prognosis Family Education/Counseling: No Family Present Departure 1 Departure Time of Disposition: 20:34 Impression: Primary Impression: Hypertensive crisis Additional Impressions: Acute renal failure Qualified Codes: N17.1 - Acute kidney failure with acute cortical necrosis Increased anion gap metabolic acidosis Hypokalemia Disposition: ADMITTED INPATIENT Admit to: ICU Condition: Fair Critical Care Note Critical Care Time?: Yes (55 min-critical care time only) Stability Stability form required: Yes Unstable for transfer: ICU, CCU, PCU, ALLIE (Intensive VS monitoring), ED Physician Assesment (Clinical assesment) Heart Score Heart Score: Heart Score Response (Comments) Value History Moderate Suspicious 1 EKG Repolarization Disturb 1 Age <45 0 Risk Factors 1 or 2 risk factors 1 Troponin Normal limit 0 Total 3 I personally scribed for YOANA UGARTE MD ([email or web address]) on 04/16/25 at 16:59. Electronically submitted by Kenzie Cordova ([facility]). YOANA UGARTE MD April 16, 2025 16:59
--- NOTE | 2025-04-16 17:14 | ECG ---
[facility] Test Date: 2025-04-16 Test Time: 16:44:55 Pat Name: BECK FIELD Department: ED Room: 0297T Gender: F Design Sales Consultant: DAVID : 1990 Requested By: YOANA UGARTE Order Number: [id number] Reading MD: Vinh Escobar Measurements Intervals [place] Rate: 107 P: 72 NM: 118 QRS: 68 QRSD: 86 T: 59 QT: 353 QTc: 471 Interpretive Statements Sinus tachycardia Right atrial enlargement Electronically Signed On 04-22-2025 21:47:53 PDT by Vinh Escobar Please click the below link to view image of tracing.
[2025-04-16 17:19] LABS: Sodium 139 mmol/L (136-145)
[2025-04-16 17:20] LABS: Anion Gap 19 (5-15); Calcium 8.9 mg/dL (8.7-10.4)
[2025-04-16 17:21] LABS: Basophils # (auto) 0.1 10 ^3/uL (0-0.2); Eosinophils # (auto) 0 10 ^3/uL (0-0.8); Hemoglobin 13.3 g/dL (12.2-16.2); Red Blood Cells 4.06 10^6/uL (4.0-5.20)
[2025-04-16 17:22] LABS: INR 0.93 (0.9-1.15); Partial Thromboplastin Time 26.8 SEC (24.5-34.5); Prothrombin Time 9.9 sec (9.3-11.8)
[2025-04-16 17:23] LABS: Basophils % (auto) 0.5 % (0.0-2.0); Eosinophils % (auto) 0.1 % (0.0-7.0); Hematocrit 39.8 % (36.0-46.0); Lymphocytes # (auto) 2.8 10 ^3/uL (0.4-5.4); Lymphocytes % (auto) 15.5 % (10.0-50.0); Mean Corpuscular Hemoglobin 32.9 pg (28.0-32.0); Mean Corpuscular Hgb Conc. 33.5 g/dL (32.0-36.0); Mean Corpuscular Volume 98.1 fL (80.0-100.0); Monocytes # (auto) 1.4 10 ^3/uL (0-1.3); Monocytes % (auto) 7.8 % (0.0-12.0); Neutrophils # (auto) 13.7 10 ^3/uL (1.6-8.6); Neutrophils % (auto) 76.1 % (37.0-80.0); Nucleated Red Blood Cells % 2.2 %; Platelet Count (auto) 47 10^3/uL (140-450); Red Cell Distribution Width 17.9 % (11.8-14.3)
--- NOTE | 2025-04-16 17:24 | DVH ---
XY CHEST PORTABLE, HISTORY: CP COMPARISON: XY CHEST PORTABLE on DOS: 04/09/25 XY CHEST PORTABLE on DOS: 04/09/25 TECHNICAL DATA: 1 view of the chest was obtained. FINDINGS: Lines and tubes: None Cardiomediastinal silhouette: normal Pulmonary vasculature: normal Lung expansion: normal Lung airspace: normal Lung interstitium: normal Pleura: normal Pneumothorax: no Bones: Unremarkable Other: no IMPRESSION: No acute intrathoracic abnormality.
[2025-04-16 17:25] LABS: BUN/Creatinine Ratio 16.2 (10.0-20.0); Carbon Dioxide 13 mmol/L (20-31); Chloride 107 mmol/L (98-107)
[2025-04-16 17:31] LABS: Glucose 146 mg/dL (74-106)
[2025-04-16 17:32] LABS: Blood Urea Nitrogen 82 mg/dL (9-23)
[2025-04-16 17:34] VITALS: PULSE 125; RESP 18; O2SAT 99
[2025-04-16] MEDS: cloNIDine HCL 0.1 MG TAB PO ONE (17:41)
[2025-04-16] MEDS: POTASSIUM CHL 20 Meq TABLET PO ONE (17:41)
--- NOTE | 2025-04-16 17:58 | ECG ---
[facility] Test Date: 2025-04-16 Test Time: 17:56:30 Pat Name: BECK FIELD Department: ED Room: 0297T Gender: F Thread Trimmer: DAVID : 1990 Requested By: YOANA UGARTE Order Number: [id number] Reading MD: Vinh Escobar Measurements Intervals [place] Rate: 97 P: 88 OR: 116 QRS: 79 QRSD: 84 T: 56 QT: 339 QTc: 431 Interpretive Statements Sinus rhythm Borderline short OR interval Probable left atrial enlargement Electronically Signed On 04-22-2025 21:48:26 PDT by Vinh Escobar Please click the below link to view image of tracing.
[2025-04-16 18:25] LABS: Platelet Estimate Decreased
[2025-04-16] MEDS ORDERED: [UNRECOGNIZED DRUG - OTHER] IV SCH (19:00)
[2025-04-16] MEDS: [UNRECOGNIZED DRUG - OTHER] IV SCH (19:29)
[2025-04-16 19:30] VITALS: PULSE 115; RESP 12; O2SAT 100
[2025-04-16] MEDS: MORPHINE SULFATE 4 MG/ML SYR/VIAL IV ONE (19:33)
[2025-04-16] MEDS: ONDANSETRON HCL 4 MG/2 ML VIAL IV ONE (19:34)
[2025-04-16] MEDS ORDERED: NITROGLYCERIN 0.4 MG SL TAB SL PRN (19:45)
[2025-04-16] MEDS: SOD CHL 0.45% 1,000 ML IV ONE (20:15)
[2025-04-16] MEDS: PANTOPRAZOLE 40 MG/10 ML VIAL INJ IV SCH (22:13)
[2025-04-16 23:00] VITALS: PULSE 93; RESP 21; O2SAT 97
--- NOTE | 2025-04-16 23:39 | ECG ---
[facility] Test Date: 2025-04-16 Test Time: 19:29:33 Pat Name: BECK FIELD Department: ED Room: 0297T Gender: F National Investigative Producer: manuel : 1990 Requested By: YOANA UGARTE Order Number: [id number] Reading MD: Vinh Escobar Measurements Intervals [place] Rate: 107 P: 64 [place]: 117 QRS: 48 QRSD: 81 T: 49 QT: 338 QTc: 451 Interpretive Statements Sinus tachycardia Baseline wander in lead(s) V3,V4 Electronically Signed On 04-22-2025 21:49:36 PDT by Vinh Escobar Please click the below link to view image of tracing.
[2025-04-17] VITALS (21 sets, daily range): BP systolic 91–164; BP diastolic 59–94; PULSE 78–122; RESP 13–26; TEMP 98.3; O2SAT 94–100
[2025-04-17 06:09] LABS: Basophils # (auto) 0 10 ^3/uL (0-0.2); Eosinophils % (auto) 0.4 % (0.0-7.0)
--- NOTE | 2025-04-17 06:11 | DVHHP2 ---
Admitting Diagnosis: HIEN GI bleed History of Present Illness HPI 34 y.o. female with Lupus was brought to the ER c/o chest pain and SOB for one week. She also stated that her BP was high and she took her BP medications, then she started vomiting and had a bloody diarrhea. On arrival she was hypertensive and ER MD started Nicardipine IV. She also was found to have HIEN. Patient takes Ibuprofen daily possibly contributing to the current problems. Home Meds Active Scripts Bumetanide (Bumex) 0.5 Mg Tab, 0.5 MG PO DAILY for 5 Days, #5 TAB 0 Refills Prov:TEA GOMEZ DO 04/09/25 Amoxicillin & Pot Clavulanate (AUGMENTIN TABLET) 875 Mg Tb, 875 MG PO BID for 5 Days, #10 TAB 0 Refills Prov:TEA GOMEZ DO 04/09/25 Cephalexin Monohydrate (Cephalexin) 500 Mg Tab, 1 TAB PO QID, #40 TAB Prov:MARIE HOOKS MD 12/01/24 Ibuprofen Micronized (MOTRIN TABLET) 600 Mg Tb, 600 MG PO TID PRN, #40 TAB *Black box warning-NSAIDS can increase risk of [place] & hypertension, GI irritation, ulceration, bleed, perferation. Do not use post cardiac surgery. Use short duration/lowest effective dose. Prov:MARIE HOOKS MD 12/01/24 Fluconazole (Diflucan) 150 Mg Tab, 1 TAB PO ONCE for 14 Days, #2 TAB Take once weekly for two weeks Prov:CANDY FRANCIS 07/24/24 Clotrimazole (Topical) (EQ ANTIFUNGAL) 1 % Cre, 1 % EX BID for 28 Days, #1 CRE Prov:CANDY FRANCIS 07/24/24 Ibuprofen Micronized (Ibuprofen) 600 Mg Tab, 600 MG PO Q8HPRN PRN, #20 TAB Prov:CANDY FRANCIS 07/24/24 Methocarbamol (Methocarbamol) 500 Mg Tab, 500 MG PO BID, #20 TAB Prov:PATRICIA CAIN 02/10/24 Ibuprofen (Ibuprofen) 800 Mg Tab, 1 TAB PO TID, #30 TAB Prov:PATRICIA CAIN 02/10/24 Ibuprofen (Ibuprofen) 800 Mg Tab, 1 TAB PO TID PRN for 7 Days, #21 TAB 1 Refill Prov:JESSY VELEZ FAMILY MEDICINE CHAIR 09/25/23 Methocarbamol (Methocarbamol) 500 Mg Tab, 500 MG PO BID, #20 TAB Prov:PATRICIA CAIN PA 09/24/22 Ibuprofen (Ibuprofen) 600 Mg Tab, 600 MG PO TID, #30 TAB Prov:PATRICIA CAIN PA 09/24/22 Reported Medications Heparin Sodium (Porcine) ((None)) 10 Units/Ml Ij, 10 UNITS IV 10/21/13 Past Medical History Cardiac: HTN Rheumotologic: SLE Renal/: CKD Review of Systems Constitutional: Weakness Cardiovascular: Chest Pain Gastrointestinal: Nausea, Vomiting, Abdominal Pain, Hematochezia H&P Exam Vital Signs Vital Signs Date Time Temp Pulse Resp B/P (MAP) Pulse Ox O2 Delivery O2 Flow Rate FiO2 04/17/25 05:18 140/104 04/17/25 04:00 107 04/17/25 03:30 22 97 04/17/25 00:30 98.4 98.4 04/16/25 23:00 Room Air* 0 21 General Appeara: Mild distress Head Exam: Normal inspection Neck Exam: Normal inspection Eye Exam: bilateral eye PERRL, bilateral eye EOMI Cardiovascular/Chest: Tachycardia Abdominal Exam: Normal bowel sounds Neuro/Mental St: Alert, Oriented Labs/Xrays Labs Test 04/17/25 05:42 04/16/25 21:04 04/16/25 16:54 Range/Units Troponin I High Sensitivity 28 </=34 ng/L Eosinophils (%) (Auto) 0.1 0.0-7.0 % Eosinophils # (Auto) 0 0-0.8 10 ^3/uL Basophils # (Auto) 0.1 0-0.2 10 ^3/uL Nucleated Red Blood Cells 2.2 % Platelet Estimate Decreased Prothrombin Time 9.9 9.3-11.8 sec Prothrombin Time INR 0.93 0.9-1.15 Activated Partial Thromboplast Time 26.8 24.5-34.5 SEC Assessment/Plan Problem List: (1) Hypertensive emergency (2) Chest pain (3) HIEN (acute kidney injury) (4) GI bleed (5) Patient takes NSAID (non-steroid anti-inflammatory drug) Plan Continue Nicardipine, ECHO, cardiology consult, Protonix, GI consult, nephrology consult Plan discussed with: Patient JESSE LÓPEZ MD April 17, 2025 06:11
[2025-04-17 06:12] LABS: Basophils % (auto) 0.1 % (0.0-2.0); Eosinophils # (auto) 0 10 ^3/uL (0-0.8); Hematocrit 35.3 % (36.0-46.0); Hemoglobin 11.7 g/dL (12.2-16.2); Lymphocytes % (auto) 24.9 % (10.0-50.0); Mean Corpuscular Hemoglobin 33.5 pg (28.0-32.0); Mean Corpuscular Hgb Conc. 33.1 g/dL (32.0-36.0); Mean Corpuscular Volume 101.2 fL (80.0-100.0); Monocytes % (auto) 8.6 % (0.0-12.0); Neutrophils # (auto) 7.9 10 ^3/uL (1.6-8.6); Nucleated Red Blood Cells % 1.1 %; Platelet Count (auto) 41 10^3/uL (140-450); Red Blood Cells 3.49 10^6/uL (4.0-5.20); Red Cell Distribution Width 18.2 % (11.8-14.3)
[2025-04-17 06:35] LABS: Alanine Aminotransferase 16 U/L (7-40); Anion Gap 15 (5-15); Aspartate Aminotransferase 25 U/L (13-40); BUN/Creatinine Ratio 11.8 (10.0-20.0); Chloride 106 mmol/L (98-107); Potassium 4.1 mmol/L (3.5-5.1)
[2025-04-17 06:39] LABS: Albumin 2.9 g/dL (3.2-4.8); Alkaline Phosphatase 42 U/L (46-116); Bilirubin, Total 0.2 mg/dL (0.2-1.0); Blood Urea Nitrogen 61 mg/dL (9-23); Calcium 8.3 mg/dL (8.7-10.4); Carbon Dioxide 13 mmol/L (20-31); Glucose 151 mg/dL (74-106); Sodium 134 mmol/L (136-145); Total Protein 4.9 g/dL (5.7-8.2)
[2025-04-17 06:43] LABS: Base Excess -11.9 mmol/L (-2.0-3.0)
[2025-04-17 07:09] LABS: Urine Bacteria FEW /hpf (None Seen); Urine Blood 2+ /uL (Negative); Urine Clarity Turbid (Clear); Urine Color Colorless (Yellow); Urine Protein, UAD 1+ (Negative); Urine Specific Gravity 1.013 (1.001-1.035); Urine Squamous Epithelial Cell FEW /hpf (<5); Urine Urobilinogen Normal (Negative); Urine WBC 9 /HPF (0-5); Urine pH 5.5 (5.0-9.0)
[2025-04-17] MEDS: PIPERACILLIN-TAZOB 3.375GM 100 ML IV SCH (07:58)
[2025-04-17 08:47] LABS: Platelet Estimate Decreased
--- NOTE | 2025-04-17 10:00 | DVHINCON2 ---
Date of service: April 17, 2025 History of Present Illness 34 yo F with hx of lupus dx 1 month ago started on cellcept complicated by low PLTs, tx to [place] for plt and prbc transfusion in ICU setting, malignant HTN and now HIEN. pt went to see cards yesterday and appt was cancelled "he refused to see me" as her bp was high. shes in HIEN now Past Medical History reviewed Allergies: Coded Allergies: NO KNOWN ALLERGIES (Unverified , 11/24/20) Home Meds Active Scripts Bumetanide (Bumex) 0.5 Mg Tab, 0.5 MG PO DAILY for 5 Days, #5 TAB 0 Refills Prov:TEA GOMEZ DO 04/09/25 Amoxicillin & Pot Clavulanate (AUGMENTIN TABLET) 875 Mg Tb, 875 MG PO BID for 5 Days, #10 TAB 0 Refills Prov:TEA GOMEZ DO 04/09/25 Cephalexin Monohydrate (Cephalexin) 500 Mg Tab, 1 TAB PO QID, #40 TAB Prov:MARIE HOOKS MD 12/01/24 Ibuprofen Micronized (MOTRIN TABLET) 600 Mg Tb, 600 MG PO TID PRN, #40 TAB *Black box warning-NSAIDS can increase risk of [place] & hypertension, GI irritation, ulceration, bleed, perferation. Do not use post cardiac surgery. Use short duration/lowest effective dose. Prov:MARIE HOOKS MD 12/01/24 Fluconazole (Diflucan) 150 Mg Tab, 1 TAB PO ONCE for 14 Days, #2 TAB Take once weekly for two weeks Prov:CANDY FRANCIS 07/24/24 Clotrimazole (Topical) (EQ ANTIFUNGAL) 1 % Cre, 1 % EX BID for 28 Days, #1 CRE Prov:CANDY FRANCIS 07/24/24 Ibuprofen Micronized (Ibuprofen) 600 Mg Tab, 600 MG PO Q8HPRN PRN, #20 TAB Prov:CANDY FRANCIS 07/24/24 Methocarbamol (Methocarbamol) 500 Mg Tab, 500 MG PO BID, #20 TAB Prov:PATRICIA CAIN 02/10/24 Ibuprofen (Ibuprofen) 800 Mg Tab, 1 TAB PO TID, #30 TAB Prov:PATRICIA CAIN 02/10/24 Ibuprofen (Ibuprofen) 800 Mg Tab, 1 TAB PO TID PRN for 7 Days, #21 TAB 1 Refill Prov:JESSY VELEZ FRIT MIXER 09/25/23 Methocarbamol (Methocarbamol) 500 Mg Tab, 500 MG PO BID, #20 TAB Prov:ANTZOHAIBBESSY PA 09/24/22 Ibuprofen (Ibuprofen) 600 Mg Tab, 600 MG PO TID, #30 TAB Prov:ANTZOHAIBKELLIMarshall PHILIP 09/24/22 Reported Medications Heparin Sodium (Porcine) ((None)) 10 Units/Ml Ij, 10 UNITS IV 10/21/13 Current Medications Current Medications Medications (Trade) Dose Ordered Sig/Kari Route PRN Reason Start Time Stop Time Status Last Admin Nicardipine HCl 250 ml @ 50 mls/hr Q5H IV 04/16/25 18:45 04/16/25 18:58 DC Nicardipine/ Sodium Chloride 250 ml @ 50 mls/hr Q5H IV 04/16/25 19:00 04/16/25 19:08 DC Nicardipine/ Sodium Chloride 200 ml @ 50 mls/hr Q4H IV 04/16/25 19:15 04/17/25 05:18 Nitroglycerin (Ntrostat Sublingual) 0.4 mg Q5MINP PRN SL FOR CHEST PAIN 04/16/25 19:45 Morphine Sulfate 2 mg Q30M PRN IV FOR CHEST PAIN 04/16/25 19:45 Pantoprazole Sodium (Protonix) 40 mg BID IV 04/16/25 22:00 04/17/25 09:11 Piperacillin Sod/ Tazobactam Sod 100 ml @ 25 mls/hr Q12HR IV 04/17/25 07:30 04/17/25 07:58 Hydralazine HCl (Apresoline Injection) 20 mg Q4HP PRN IV SBP>150 04/17/25 09:45 Sodium Chloride 1,000 ml @ 100 mls/hr Q10H IV 04/17/25 09:45 Review of Systems 10 pt ros otherwise negative Vital Signs Vital Signs Date Time Temp Pulse Resp B/P (MAP) Pulse Ox O2 Delivery O2 Flow Rate FiO2 04/17/25 09:30 105 23 156/100 (118) 97 04/17/25 08:03 Room Air* 0 21 04/17/25 08:00 97.9 97.9 Physical Exam nad s1 s2 rrr diffuse rhonchi abd soft nt/nd trivial edema Labs/Diagnostic Data Labs Test 04/17/25 06:38 04/17/25 05:42 04/17/25 05:24 04/16/25 21:04 Range/Units Blood Gas Specimen Type Arterial Blood Gas Sample Site Right radial Blood Gas Patient Temperature 37.0 Arterial Blood Date Drawn [id number] Arterial Blood pH 7.299 L 7.350-7.450 Arterial Blood Partial Pressure CO2 27.0 L 32.0-45.0 mmHg Arterial Blood Partial Pressure O2 87.7 83.0-108.0 mmHg Arterial Blood HCO3 13.0 L 21.0-28.0 mmol/L Arterial Blood Oxygen Saturation 95.5 94.0-98.0 % Arterial Blood Base Excess -11.9 L -2.0-3.0 mmol/L Arterial Blood Oxyhemoglobin 93.0 L 94.0-98.0 % Arterial Blood Carboxyhemoglobin 1.8 H 0.5-1.5 % Arterial Blood Methemoglobin 0.8 0.0-1.5 % Malachi Test Yes Blood Gas Total Hemoglobin 12.00 12.0-16.0 g/dL Blood Gas Modality Room air FiO2 % 21.0 White Blood Count 12.0 #H 4.4-10.8 10^3/uL Red Blood Count 3.49 L 4.0-5.20 10^6/uL Hemoglobin 11.7 L 12.2-16.2 g/dL Hematocrit 35.3 #L 36.0-46.0 % Mean Corpuscular Volume 101.2 H 80.0-100.0 fL Mean Corpuscular Hemoglobin 33.5 H 28.0-32.0 pg Mean Corpuscular Hemoglobin Concent 33.1 32.0-36.0 g/dL Red Cell Distribution Width 18.2 H 11.8-14.3 % Platelet Count 41 L 140-450 10^3/uL Mean Platelet Volume 10.1 6.9-10.8 fL Neutrophils (%) (Auto) 66.0 37.0-80.0 % Lymphocytes (%) (Auto) 24.9 10.0-50.0 % Monocytes (%) (Auto) 8.6 0.0-12.0 % Eosinophils (%) (Auto) 0.4 0.0-7.0 % Basophils (%) (Auto) 0.1 0.0-2.0 % Neutrophils # (Auto) 7.9 1.6-8.6 10 ^3/uL Lymphocytes # (Auto) 3.0 0.4-5.4 10 ^3/uL Monocytes # (Auto) 1.0 0-1.3 10 ^3/uL Eosinophils # (Auto) 0 0-0.8 10 ^3/uL Basophils # (Auto) 0 0-0.2 10 ^3/uL Nucleated Red Blood Cells 1.1 % Platelet Estimate Decreased Sodium Level 134 #L 136-145 mmol/L Potassium Level 4.1 3.5-5.1 mmol/L Chloride Level 106 98-107 mmol/L Carbon Dioxide Level 13 L 20-31 mmol/L Anion Gap 15 5-15 Blood Urea Nitrogen 61 #H 9-23 mg/dL Creatinine 5.15 H 0.550-1.02 mg/dL Glomerular Filtration Rate Calc 11 >90 mL/min BUN/Creatinine Ratio 11.8 10.0-20.0 Serum Glucose 151 H 74-106 mg/dL Calcium Level 8.3 L 8.7-10.4 mg/dL Total Bilirubin 0.2 0.2-1.0 mg/dL Aspartate Amino Transferase (AST) 25 13-40 U/L Alanine Aminotransferase (ALT) 16 7-40 U/L Alkaline Phosphatase 42 L 46-116 U/L Total Protein 4.9 L 5.7-8.2 g/dL Albumin 2.9 L 3.2-4.8 g/dL Urine Color Colorless Yellow Urine Clarity Turbid H Clear Urine pH 5.5 5.0-9.0 Urine Specific [place] 1.013 1.001-1.035 Urine Protein 1+ H Negative Urine Ketones Negative Negative Urine Blood 2+ H Negative /uL Urine Nitrite Negative Negative Urine Bilirubin Negative Negative Urine Urobilinogen Normal Negative mg/dL Urine Leukocyte Esterase 1+ Negative /uL Urine RBC 4 0 - 4 /hpf Urine Microscopic WBC 9 H 0-5 /HPF Urine Squamous Epithelial Cells Few <5 /hpf Urine Bacteria Few H None Seen /hpf Urine Glucose Normal Normal mg/dL Urine Test Negative Negative Troponin I High Sensitivity 28 </=34 ng/L Test 04/16/25 16:54 Range/Units Prothrombin Time 9.9 9.3-11.8 sec Prothrombin Time INR 0.93 0.9-1.15 Activated Partial Thromboplast Time 26.8 24.5-34.5 SEC Assessment HIEN lupus flare low PLTs/ thrombocytopenia malignat HTN r/o chf Plan/Recommendation off gtt now started n hydralazine and BB, and CCB as well prn clonidine check echo GI consult pending Renal consult pending Plan discussed with: Patient NITIN DURAN MD April 17, 2025 10:00
[2025-04-17] MEDS: SODIUM CHLORIDE 0.9% 1,000 ML IV SCH (10:15)
[2025-04-17] MEDS: METOPROLOL TARTRATE 25 MG TAB PO SCH (10:21)
[2025-04-17] MEDS: amLODIPine BESYLATE 5 MG TAB PO SCH (10:21)
[2025-04-17] MEDS: hydrALAZINE HCL 25 MG TAB PO SCH (10:22)
[2025-04-17] MEDS: hydrALAZINE HCL 20 MG/ML VL IV PRN (10:32)
--- NOTE | 2025-04-17 12:07 | DVH ---
INDICATION: sandeep TECHNIQUE: Multiple real-time sonographic images of the kidneys and bladder were obtained. COMPARISON: US KIDNEY on DOS: 04/09/25 FINDINGS: The right kidney measures 10 cm in length, which is normal in size. There is normal echogen icity of the right kidney. No hydronephrosis. The left kidney measures 10 cm in length, which is normal in size. There is normal echogenicity of th e left kidney. No hydronephrosis. No large intraluminal masses are seen in the bladder. IMPRESSION: 1. Normal sonographic appearance of the kidneys. No hydronephrosis.
[2025-04-17] MEDS: MORPHINE SULFATE INJ 2 MG/ml SYRG IV PRN (14:15)
[2025-04-17 18:54] LABS: Chloride 106 mmol/L (98-107)
[2025-04-17 18:55] LABS: Anion Gap 12 (5-15)
--- NOTE | 2025-04-17 19:00 | DVHINCON2 ---
Date of service: April 17, 2025 Referring Physician oZfia Masters MD Reason for Consultation HIEN History of Present Illness Mrs. Bradford is a 34-year-old female with known history of lupus on immunosuppressive therapy who presents for further evaluation and management of headache and dyspnea. She was found to be in hypertensive crisis initiated on therapy with nicardipine infusion. She was seen in the emergency room earlier today. She states that ever since she had been started on CellCept, she has felt unwell. Outpatient medications notable for high-dose NSAID therapy. Current consultation requested due to serum creatinine elevation to the five range, urinalysis with notation of proteinuria and microscopic hematuria. She denies hemoptysis, hematochezia, recent fever. Past Medical History SLE Hypertension Allergies: Coded Allergies: NO KNOWN ALLERGIES (Unverified , 11/24/20) Home Meds Active Scripts Bumetanide (Bumex) 0.5 Mg Tab, 0.5 MG PO DAILY for 5 Days, #5 TAB 0 Refills Prov:TEA GOMEZ DO 04/09/25 Amoxicillin & Pot Clavulanate (AUGMENTIN TABLET) 875 Mg Tb, 875 MG PO BID for 5 Days, #10 TAB 0 Refills Prov:TEA GOMEZ DO 04/09/25 Cephalexin Monohydrate (Cephalexin) 500 Mg Tab, 1 TAB PO QID, #40 TAB Prov:MARIE HOOKS MD 12/01/24 Ibuprofen Micronized (MOTRIN TABLET) 600 Mg Tb, 600 MG PO TID PRN, #40 TAB *Black box warning-NSAIDS can increase risk of [place] & hypertension, GI irritation, ulceration, bleed, perferation. Do not use post cardiac surgery. Use short duration/lowest effective dose. Prov:MARIE HOOKS MD 12/01/24 Fluconazole (Diflucan) 150 Mg Tab, 1 TAB PO ONCE for 14 Days, #2 TAB Take once weekly for two weeks Prov:CANDY FRANCIS 07/24/24 Clotrimazole (Topical) (EQ ANTIFUNGAL) 1 % Cre, 1 % EX BID for 28 Days, #1 CRE Prov:CANDY FRANCIS 07/24/24 Ibuprofen Micronized (Ibuprofen) 600 Mg Tab, 600 MG PO Q8HPRN PRN, #20 TAB Prov:CANDY FRANCIS 07/24/24 Methocarbamol (Methocarbamol) 500 Mg Tab, 500 MG PO BID, #20 TAB Prov:PATRICIA CAIN PHILIP 02/10/24 Ibuprofen (Ibuprofen) 800 Mg Tab, 1 TAB PO TID, #30 TAB Prov:PATRICIA CAIN PHILIP 02/10/24 Ibuprofen (Ibuprofen) 800 Mg Tab, 1 TAB PO TID PRN for 7 Days, #21 TAB 1 Refill Prov:ROSIEJESSY Mai [employer] 09/25/23 Methocarbamol (Methocarbamol) 500 Mg Tab, 500 MG PO BID, #20 TAB Prov:NEEMA CAINMarshall PALACIOS 09/24/22 Ibuprofen (Ibuprofen) 600 Mg Tab, 600 MG PO TID, #30 TAB Prov:PATRICIA CAIN PHILIP 09/24/22 Reported Medications Heparin Sodium (Porcine) ((None)) 10 Units/Ml Ij, 10 UNITS IV 10/21/13 Current Medications Current Medications Medications (Trade) Dose Ordered Sig/Kari Route PRN Reason Start Time Stop Time Status Last Admin Nicardipine/ Sodium Chloride 250 ml @ 50 mls/hr Q5H IV 04/16/25 19:00 04/16/25 19:08 DC Nicardipine/ Sodium Chloride 200 ml @ 50 mls/hr Q4H IV 04/16/25 19:15 04/17/25 05:18 Nitroglycerin (Ntrostat Sublingual) 0.4 mg Q5MINP PRN SL FOR CHEST PAIN 04/16/25 19:45 Morphine Sulfate 2 mg Q30M PRN IV FOR CHEST PAIN 04/16/25 19:45 04/17/25 14:15 Pantoprazole Sodium (Protonix) 40 mg BID IV 04/16/25 22:00 04/17/25 09:11 Piperacillin Sod/ Tazobactam Sod 100 ml @ 25 mls/hr Q12HR IV 04/17/25 07:30 04/17/25 10:11 Hydralazine HCl (Apresoline Injection) 20 mg Q4HP PRN IV SBP>150 04/17/25 09:45 04/17/25 10:32 Sodium Chloride 1,000 ml @ 100 mls/hr Q10H IV 04/17/25 09:45 04/17/25 10:15 Hydralazine HCl (Apresoline Tablet) 50 mg DAILY PO 04/17/25 10:00 04/17/25 10:22 Amlodipine Besylate (Norvasc Tablet) 5 mg DAILY PO 04/17/25 10:00 04/17/25 10:21 Metoprolol Tartrate (Lopressor Tablet) 12.5 mg BID PO 04/17/25 10:00 04/17/25 10:21 Review of Systems Denies gross hematuria, dysuria, tea or Coca-Cola colored urine Denies excessive use of recent NSAIDs, foamy urine, recent IV contrast studies Denies fever, chills, nausea, vomiting, diarrhea Denies unintentional weight loss, night sweats Denies focal weakness, numbness H&P Exam Vital Signs/I&O Vital Sign Date Time Temp Pulse Resp B/P (MAP) Pulse Ox O2 Delivery O2 Flow Rate FiO2 04/17/25 18:30 160/102 04/17/25 18:30 93 22 100 04/17/25 11:30 97.8 97.8 04/17/25 08:03 Room Air* 0 21 Intake and Output 04/16/25 04/17/25 19:00 07:00 Intake Total 1325 ml Balance 1325 ml Intake IV Total 1325 ml Physical Exam Gen: nad, no acute distress heent: nc/at, mmm lungs: cta anteriorly cvs: no rub abd: soft, bowel sounds audible ext: no edema skin: no rash neuro: alert and oriented Labs/Diagnostic Data Labs/Diagnostic Data Laboratory Tests Test 04/17/25 18:14 04/17/25 06:38 04/17/25 05:42 04/17/25 05:24 Range/Units Blood Gas Specimen Type Arterial Blood Gas Sample Site Right radial Blood Gas Patient Temperature 37.0 Arterial Blood Date Drawn [id number] Arterial Blood pH 7.299 L 7.350-7.450 Arterial Blood Partial Pressure CO2 27.0 L 32.0-45.0 mmHg Arterial Blood Partial Pressure O2 87.7 83.0-108.0 mmHg Arterial Blood HCO3 13.0 L 21.0-28.0 mmol/L Arterial Blood Oxygen Saturation 95.5 94.0-98.0 % Arterial Blood Base Excess -11.9 L -2.0-3.0 mmol/L Arterial Blood Oxyhemoglobin 93.0 L 94.0-98.0 % Arterial Blood Carboxyhemoglobin 1.8 H 0.5-1.5 % Arterial Blood Methemoglobin 0.8 0.0-1.5 % Malachi Test Yes Blood Gas Total Hemoglobin 12.00 12.0-16.0 g/dL Blood Gas Modality Room air FiO2 % 21.0 White Blood Count 12.0 #H 4.4-10.8 10^3/uL Red Blood Count 3.49 L 4.0-5.20 10^6/uL Hemoglobin 11.7 L 12.2-16.2 g/dL Hematocrit 35.3 #L 36.0-46.0 % Mean Corpuscular Volume 101.2 H 80.0-100.0 fL Mean Corpuscular Hemoglobin 33.5 H 28.0-32.0 pg Mean Corpuscular Hemoglobin Concent 33.1 32.0-36.0 g/dL Red Cell Distribution Width 18.2 H 11.8-14.3 % Platelet Count 41 L 140-450 10^3/uL Mean Platelet Volume 10.1 6.9-10.8 fL Neutrophils (%) (Auto) 66.0 37.0-80.0 % Lymphocytes (%) (Auto) 24.9 10.0-50.0 % Monocytes (%) (Auto) 8.6 0.0-12.0 % Eosinophils (%) (Auto) 0.4 0.0-7.0 % Basophils (%) (Auto) 0.1 0.0-2.0 % Neutrophils # (Auto) 7.9 1.6-8.6 10 ^3/uL Lymphocytes # (Auto) 3.0 0.4-5.4 10 ^3/uL Monocytes # (Auto) 1.0 0-1.3 10 ^3/uL Eosinophils # (Auto) 0 0-0.8 10 ^3/uL Basophils # (Auto) 0 0-0.2 10 ^3/uL Nucleated Red Blood Cells 1.1 % Platelet Estimate Decreased Sodium Level 134 #L 136-145 mmol/L Potassium Level 4.1 3.5-5.1 mmol/L Chloride Level 106 98-107 mmol/L Carbon Dioxide Level 13 L 20-31 mmol/L Anion Gap 15 5-15 Blood Urea Nitrogen 61 #H 9-23 mg/dL Creatinine 5.15 H 0.550-1.02 mg/dL Glomerular Filtration Rate Calc 11 >90 mL/min BUN/Creatinine Ratio 11.8 10.0-20.0 Serum Glucose 151 H 74-106 mg/dL Calcium Level 8.3 L 8.7-10.4 mg/dL Total Bilirubin 0.2 0.2-1.0 mg/dL Aspartate Amino Transferase (AST) 25 13-40 U/L Alanine Aminotransferase (ALT) 16 7-40 U/L Alkaline Phosphatase 42 L 46-116 U/L Total Protein 4.9 L 5.7-8.2 g/dL Albumin 2.9 L 3.2-4.8 g/dL Urine Color Colorless Yellow Urine Clarity Turbid H Clear Urine pH 5.5 5.0-9.0 Urine Specific [place] 1.013 1.001-1.035 Urine Protein 1+ H Negative Urine Ketones Negative Negative Urine Blood 2+ H Negative /uL Urine Nitrite Negative Negative Urine Bilirubin Negative Negative Urine Urobilinogen Normal Negative mg/dL Urine Leukocyte Esterase 1+ Negative /uL Urine RBC 4 0 - 4 /hpf Urine Microscopic WBC 9 H 0-5 /HPF Urine Squamous Epithelial Cells Few <5 /hpf Urine Bacteria Few H None Seen /hpf Urine Glucose Normal Normal mg/dL Urine Test Negative Negative Test 04/16/25 21:04 04/16/25 18:38 04/16/25 16:54 Range/Units Troponin I High Sensitivity 28 25 21 </=34 ng/L White Blood Count 18.0 H 4.4-10.8 10^3/uL Red Blood Count 4.06 4.0-5.20 10^6/uL Hemoglobin 13.3 12.2-16.2 g/dL Hematocrit 39.8 36.0-46.0 % Mean Corpuscular Volume 98.1 80.0-100.0 fL Mean Corpuscular Hemoglobin 32.9 H 28.0-32.0 pg Mean Corpuscular Hemoglobin Concent 33.5 32.0-36.0 g/dL Red Cell Distribution Width 17.9 H 11.8-14.3 % Platelet Count 47 L 140-450 10^3/uL Mean Platelet Volume 8.8 6.9-10.8 fL Neutrophils (%) (Auto) 76.1 37.0-80.0 % Lymphocytes (%) (Auto) 15.5 10.0-50.0 % Monocytes (%) (Auto) 7.8 0.0-12.0 % Eosinophils (%) (Auto) 0.1 0.0-7.0 % Basophils (%) (Auto) 0.5 0.0-2.0 % Neutrophils # (Auto) 13.7 H 1.6-8.6 10 ^3/uL Lymphocytes # (Auto) 2.8 0.4-5.4 10 ^3/uL Monocytes # (Auto) 1.4 H 0-1.3 10 ^3/uL Eosinophils # (Auto) 0 0-0.8 10 ^3/uL Basophils # (Auto) 0.1 0-0.2 10 ^3/uL Nucleated Red Blood Cells 2.2 % Platelet Estimate Decreased Prothrombin Time 9.9 9.3-11.8 sec Prothrombin Time INR 0.93 0.9-1.15 Activated Partial Thromboplast Time 26.8 24.5-34.5 SEC Sodium Level 139 136-145 mmol/L Potassium Level 3.0 L 3.5-5.1 mmol/L Chloride Level 107 98-107 mmol/L Carbon Dioxide Level 13 L 20-31 mmol/L Anion Gap 19 H 5-15 Blood Urea Nitrogen 82 *H 9-23 mg/dL Creatinine 5.06 H 0.550-1.02 mg/dL Glomerular Filtration Rate Calc 11 >90 mL/min BUN/Creatinine Ratio 16.2 10.0-20.0 Serum Glucose 146 H 74-106 mg/dL Calcium Level 8.9 8.7-10.4 mg/dL Assessment IMP: 1) Hemodynamically mediated HIEN/VMN in setting of hypertensive crisis,+/- contribution from relatively high-dose NSAID therapy as well. 2) CKD stage II? , serum creatinine less than one in November of this year. 3) SLE with finding of microscopic hematuria and proteinuria on urinalysis 4) hypertensive crisis 5) acute on chronic diastolic heart failure REC: - agree with current blood pressure regimen, hypertensive control improved significantly - kidney biopsy for pathologic diagnosis especially in light of underlying lupus - we will hold off on pulse dose corticosteroids currently due to confounding that is involved with high-dose NSAIDs. - further management to be based on treatment course, currently without urgent indication for dialysis Thank you for the consultation. Plan discussed with: Patient CHETNA DUDLEY MD April 17, 2025 19:00
[2025-04-17 19:01] LABS: BUN/Creatinine Ratio 13.5 (10.0-20.0)
[2025-04-17 19:02] LABS: Blood Urea Nitrogen 66 mg/dL (9-23); Calcium 7.9 mg/dL (8.7-10.4); Carbon Dioxide 16 mmol/L (20-31); Glucose 126 mg/dL (74-106); Sodium 134 mmol/L (136-145)
[2025-04-18] VITALS (62 sets, daily range): BP systolic 123–169; BP diastolic 68–105; PULSE 80–127; RESP 13–31; TEMP 97.6–99.5; O2SAT 87–100
[2025-04-18 06:08] LABS: Basophils # (auto) 0.1 10 ^3/uL (0-0.2); Eosinophils # (auto) 0 10 ^3/uL (0-0.8)
[2025-04-18 06:09] LABS: % Iron Saturation 22.7 % (15-50)
[2025-04-18 06:10] LABS: Alanine Aminotransferase 16 U/L (7-40); Anion Gap 11 (5-15); Aspartate Aminotransferase 25 U/L (13-40); BUN/Creatinine Ratio 14.7 (10.0-20.0); Basophils % (auto) 0.5 % (0.0-2.0); Creatine Kinase IFCC 37 U/L (34-145); Eosinophils % (auto) 0.4 % (0.0-7.0); Hematocrit 27.8 % (36.0-46.0); Hemoglobin 9.4 g/dL (12.2-16.2); Lymphocytes # (auto) 1.6 10 ^3/uL (0.4-5.4); Lymphocytes % (auto) 13.2 % (10.0-50.0); Mean Corpuscular Hemoglobin 33.7 pg (28.0-32.0); Mean Corpuscular Volume 99.1 fL (80.0-100.0); Monocytes # (auto) 0.6 10 ^3/uL (0-1.3); Monocytes % (auto) 5.4 % (0.0-12.0); Neutrophils # (auto) 9.6 10 ^3/uL (1.6-8.6); Neutrophils % (auto) 80.5 % (37.0-80.0); Nucleated Red Blood Cells % 0.5 %; Platelet Count (auto) 38 10^3/uL (140-450); Potassium 4.1 mmol/L (3.5-5.1); Red Cell Distribution Width 17.6 % (11.8-14.3); White Blood Cell 11.9 10^3/uL (4.4-10.8)
[2025-04-18 06:11] LABS: Albumin 2.8 g/dL (3.2-4.8); Alkaline Phosphatase 39 U/L (46-116); Bilirubin, Direct < 0.1 mg/dL (<0.3); Bilirubin, Total 0.2 mg/dL (0.2-1.0); Blood Urea Nitrogen 74 mg/dL (9-23); Calcium 7.9 mg/dL (8.7-10.4); Carbon Dioxide 14 mmol/L (20-31); Chloride 109 mmol/L (98-107); Glucose 118 mg/dL (74-106); Phosphorus 5.9 mg/dL (2.4-5.1); Sodium 134 mmol/L (136-145); Total Protein 4.5 g/dL (5.7-8.2)
[2025-04-18 06:45] LABS: Platelet Estimate Decreased
[2025-04-18] MEDS: MIDAZOLAM HCL 2MG/2ML 2ml VIAL (1mg/ml) IV ONE (07:45)
[2025-04-18] MEDS: fentaNYL CITRATE 100 MCG/2 ML VL IV ONE (07:45)
--- NOTE | 2025-04-18 07:45 | DVHPN2 ---
Progress Note Date Seen: April 18, 2025 Medical Necessity Reason Pt with a Central, PICC or Fol: Yes Subjective Patient reports: No new complaints Review of Systems: CVS:Normal, RESPIRATORY:Normal, GI:Normal Objective vital signs Vital Sign Date Time Temp Pulse Resp B/P (MAP) Pulse Ox O2 Delivery O2 Flow Rate FiO2 04/18/25 06:47 114 28 138/82 04/18/25 06:00 99 04/18/25 06:00 Room Air* 0 21 04/18/25 04:00 99.0 99.0 Total Intake and Output 04/17/25 04/17/25 04/18/25 15:00 23:00 07:00 Intake Total 715 ml 1312.5 ml Output Total 350 ml Balance 715 ml 962.5 ml medications Current Medications Medications Dose Ordered Sig/Kari Route Start Time Stop Time Status Last Admin Dose Admin Nicardipine/ Sodium Chloride 200 ml @ 50 mls/hr Q4H IV 04/16/25 19:15 04/18/25 04:51 75 MLS/HR Nitroglycerin 0.4 mg Q5MINP PRN SL 04/16/25 19:45 Morphine Sulfate 2 mg Q30M PRN IV 04/16/25 19:45 04/18/25 06:47 2 MG Pantoprazole Sodium 40 mg BID IV 04/16/25 22:00 04/17/25 22:12 40 MG Piperacillin Sod/ Tazobactam Sod 100 ml @ 25 mls/hr Q12HR IV 04/17/25 07:30 04/17/25 22:12 25 MLS/HR Hydralazine HCl 20 mg Q4HP PRN IV 04/17/25 09:45 04/18/25 05:59 20 MG Sodium Chloride 1,000 ml @ 100 mls/hr Q10H IV 04/17/25 09:45 04/17/25 20:00 100 MLS/HR Hydralazine HCl 50 mg DAILY PO 04/17/25 10:00 04/17/25 10:22 50 MG Amlodipine Besylate 5 mg DAILY PO 04/17/25 10:00 04/17/25 10:21 5 MG Metoprolol Tartrate 12.5 mg BID PO 04/17/25 10:00 04/17/25 22:12 12.5 MG Examination: GENERAL:Normal, LUNGS:Normal, CVS:Normal, ABDOMEN:Normal laboratory and microbiology Laboratory Tests 04/18/25 05:15 Test 04/18/25 05:15 Range/Units Serum Glucose 118 H 74-106 mg/dL Problem List/Assessment/Plan Problem List/Assessment/Plan 1) Hypertensive crisis 2) HIEN 2/2 NSAID use/?lupus nephritis 3) Thrombocytopenia 4) Metabolic acidosis 5) SLE 6) HTN plan; Cr still 5 this AM, nephro would like renal biopsy given her hx of SLE on immunosuppressive therapy however patient has also been taking high dose NSAIDs at home which likely also contributed to the HIEN as her Cr was less than 1 in November 2024, will attempt to wean off nicardipine gtt, restarted patients home BP meds, echo is complete pending read with cardiology consult on board, hematology to eval for low PLTs, avoid nephrotoxic meds, daily labs, supportive care, [employer] consultant input appreciated, will follow along Plan discussed with: Other (n) BEBETO STRANGE MD April 18, 2025 07:45
[2025-04-18] MEDS ORDERED: NICARDIPINE HCL IN SODIUM CHLO 200 ML IV SCH (09:45)
--- NOTE | 2025-04-18 09:47 | DVHPN2 ---
Progress Note Date Seen: April 18, 2025 Medical Necessity Reason Pt with a Central, PICC or Fol: No Subjective Patient reports: Feels worse Review of Systems: GI:Abnormal Objective vital signs Vital Sign Date Time Temp Pulse Resp B/P (MAP) Pulse Ox O2 Delivery O2 Flow Rate FiO2 04/18/25 09:00 98.7 113 24 147/84 (105) 99 98.7 04/18/25 08:00 Room Air* 0 21 Total Intake and Output 04/17/25 04/17/25 04/18/25 15:00 23:00 07:00 Intake Total 715 ml 1437.5 ml Output Total 350 ml Balance 715 ml 1087.5 ml medications Current Medications Medications Dose Ordered Sig/Kari Route Start Time Stop Time Status Last Admin Dose Admin Nitroglycerin 0.4 mg Q5MINP PRN SL 04/16/25 19:45 Morphine Sulfate 2 mg Q30M PRN IV 04/16/25 19:45 04/18/25 06:47 2 MG Pantoprazole Sodium 40 mg BID IV 04/16/25 22:00 04/17/25 22:12 40 MG Piperacillin Sod/ Tazobactam Sod 100 ml @ 25 mls/hr Q12HR IV 04/17/25 07:30 04/17/25 22:12 25 MLS/HR Hydralazine HCl 20 mg Q4HP PRN IV 04/17/25 09:45 04/18/25 05:59 20 MG Sodium Chloride 1,000 ml @ 100 mls/hr Q10H IV 04/17/25 09:45 04/17/25 20:00 100 MLS/HR Amlodipine Besylate 5 mg DAILY PO 04/17/25 10:00 Hold 04/17/25 10:21 5 MG Metoprolol Tartrate 12.5 mg BID PO 04/17/25 10:00 04/17/25 22:12 12.5 MG Ondansetron HCl 4 mg Q6HPRN PRN IV 04/18/25 09:30 Hydralazine HCl 50 mg Q12HR PO 04/18/25 10:00 Nicardipine/ Sodium Chloride 200 ml @ 50 mls/hr Q4H IV 04/18/25 09:45 Examination: CVS:Abnormal, ABDOMEN:Abnormal, SKIN:Abnormal laboratory and microbiology Laboratory Tests 04/18/25 05:15 Test 04/18/25 05:15 Range/Units Serum Glucose 118 H 74-106 mg/dL Problem List/Assessment/Plan Problem List/Assessment/Plan Acute kidney injury ckd II Autoimmune disease SLE per patient vs psoriasis anemia and thrombocytopenia primary medical disease vs immunosuppression hypertensive emergency Patient BP control w/ po meds hydralazine BID, norvasc, metoprolol, clonindine off nicardipine drip GI for bleeding currently NPO patient benefits from kidney biopsy for diagnosis and management, remains on hold until PLTs have improved IV steroids pulse today send serum serologies today and UPC ratio no emergent indication for dialysis at this time Plan discussed with: Patient My Orders My Orders Orders - JESSICA LINDSEY MD Procedure Category Date Status Time Sharda; Direct LAB 04/18/25 Logged 08:53 Complement C3 & C4 LAB 04/18/25 Logged 08:53 Anca Panel LAB 04/18/25 Logged 08:53 Erythrocyte LAB 04/18/25 Logged Sedimentation Rate 08:53 Hemoglobin A1c LAB 04/18/25 In Process 09:00 Ondansetron Hcl PHA 04/18/25 In Process (Zofran) 09:30 Hydralazine Hcl PHA 04/18/25 In Process Tablet (Apresoline 10:00 Nicardipine Hcl In PHA 04/18/25 In Process Sodium Chlo (Cardene 09:45 JESSICA LINDSEY MD April 18, 2025 09:47
[2025-04-18] MEDS ORDERED: fentaNYL Drip 2500mCg/250mlNS 250 ML IV SCH (10:00)
[2025-04-18] MEDS: methylPREDNISolone SOD SUCC 500 MG in SODIUM CHL 0.9% 100 ML IV ONE (10:33)
[2025-04-18] MEDS: hydrALAZINE HCL 25 MG TAB PO SCH (10:37)
[2025-04-18 10:38] LABS: Protein, Urine 52.6 mg/dL (1-14)
[2025-04-18 10:41] LABS: Creatinine, Urine 39.51 mg/dL (30.0-125.0)
[2025-04-18] MEDS: ONDANSETRON HCL 4 MG/2 ML VIAL IV PRN (10:48)
[2025-04-18 11:13] LABS: Erythrocyte Sedimentation Rate 25 mm/hr (0-20)
[2025-04-18] MEDS: cloNIDine HCL 0.1 MG TAB PO SCH (12:59)
--- NOTE | 2025-04-18 14:22 | DVHINCON2 ---
GI Consult Consult Note GI consult note Date of Consultation: 04/18/2025 Chief Complaint: GI bleed Referring Physician: Dr. Womack H&P: 34-year-old female with past medical history of lupus, hypertension and kidney disease, presents to ER with complains of chest pain and shortness of breath Patient also complains of nausea and vomiting, denies hematemesis Patient has complains of loose stool, which is watery, with red blood for the past three days. Patient has noticed some black stool also. Denies Rectal pain. No hemorrhoids Patient admits to taking Motrin, quit about one-week ago. Denies blood thinners Past Medical History: Cancer, CKF, HTN lupus Past Surgical History: None Social History: NO smoking, drinking ETOH and use of illegal drugs. Family History: Noncontributory Review of Systems: Constitutional: no fever, chill, weight loss HEENT: no eye pain, no hearing loss, no oral lesion, no scleral icterus Heart: no chest pain, no chest pressure Lung: no cough, no dyspnea with exertion Abdomen: see HPI Physical exam: General: NAD, AAOX3 Chest: lung vargas clear to auscultation Heart: RRR, no murmur Abdomen: non-distended, no tenderness to palpation, +BS Labs: Labs Test 04/18/25 10:34 04/18/25 09:30 04/18/25 08:29 04/18/25 05:15 Range/Units Erythrocyte Sedimentation Rate 25 H 0-20 mm/hr Urine Creatinine 39.51 30.0-125.0 mg/dL Urine Sodium 72 40-220 mmol/L Urine Total Protein 52.6 H 1-14 mg/dL Cortisol AM Sample 37.06 H 5.27-22.45 ug/dL White Blood Count 11.9 H 4.4-10.8 10^3/uL Red Blood Count 2.80 L 4.0-5.20 10^6/uL Hemoglobin 9.4 #L 12.2-16.2 g/dL Hematocrit 27.8 #L 36.0-46.0 % Mean Corpuscular Volume 99.1 80.0-100.0 fL Mean Corpuscular Hemoglobin 33.7 H 28.0-32.0 pg Mean Corpuscular Hemoglobin Concent 34.0 32.0-36.0 g/dL Red Cell Distribution Width 17.6 H 11.8-14.3 % Platelet Count 38 L 140-450 10^3/uL Mean Platelet Volume 8.1 6.9-10.8 fL Neutrophils (%) (Auto) 80.5 H 37.0-80.0 % Lymphocytes (%) (Auto) 13.2 10.0-50.0 % Monocytes (%) (Auto) 5.4 0.0-12.0 % Eosinophils (%) (Auto) 0.4 0.0-7.0 % Basophils (%) (Auto) 0.5 0.0-2.0 % Neutrophils # (Auto) 9.6 H 1.6-8.6 10 ^3/uL Lymphocytes # (Auto) 1.6 0.4-5.4 10 ^3/uL Monocytes # (Auto) 0.6 0-1.3 10 ^3/uL Eosinophils # (Auto) 0 0-0.8 10 ^3/uL Basophils # (Auto) 0.1 0-0.2 10 ^3/uL Nucleated Red Blood Cells 0.5 % Platelet Estimate Decreased Henry Cells Few Schistocytes Few Sodium Level 134 L 136-145 mmol/L Potassium Level 4.1 3.5-5.1 mmol/L Chloride Level 109 H 98-107 mmol/L Carbon Dioxide Level 14 L 20-31 mmol/L Anion Gap 11 5-15 Blood Urea Nitrogen 74 H 9-23 mg/dL Creatinine 5.04 H 0.550-1.02 mg/dL Glomerular Filtration Rate Calc 11 >90 mL/min BUN/Creatinine Ratio 14.7 10.0-20.0 Serum Glucose 118 H 74-106 mg/dL Hemoglobin A1c < 5.7 <5.7 % A1C Uric Acid 7.0 3.1-7.8 mg/dL Calcium Level 7.9 L 8.7-10.4 mg/dL Phosphorus Level 5.9 H 2.4-5.1 mg/dL Iron Level 57 50-170 ug/dL Total Iron Binding Capacity 251 250-425 ug/dL Percent Iron Saturation 22.7 15-50 % Total Bilirubin 0.2 0.2-1.0 mg/dL Direct Bilirubin < 0.1 <0.3 mg/dL Aspartate Amino Transferase (AST) 25 13-40 U/L Alanine Aminotransferase (ALT) 16 7-40 U/L Alkaline Phosphatase 39 L 46-116 U/L Creatine Kinase 37 34-145 U/L Total Protein 4.5 L 5.7-8.2 g/dL Albumin 2.8 L 3.2-4.8 g/dL Thyroid Stimulating Hormone (TSH) 2.82 0.55-4.78 uIU/mL Test 04/17/25 06:38 04/17/25 05:24 04/16/25 21:04 04/16/25 16:54 Range/Units Blood Gas Specimen Type Arterial Blood Gas Sample Site Right radial Blood Gas Patient Temperature 37.0 Arterial Blood Date Drawn [id number] Arterial Blood pH 7.299 L 7.350-7.450 Arterial Blood Partial Pressure CO2 27.0 L 32.0-45.0 mmHg Arterial Blood Partial Pressure O2 87.7 83.0-108.0 mmHg Arterial Blood HCO3 13.0 L 21.0-28.0 mmol/L Arterial Blood Oxygen Saturation 95.5 94.0-98.0 % Arterial Blood Base Excess -11.9 L -2.0-3.0 mmol/L Arterial Blood Oxyhemoglobin 93.0 L 94.0-98.0 % Arterial Blood Carboxyhemoglobin 1.8 H 0.5-1.5 % Arterial Blood Methemoglobin 0.8 0.0-1.5 % Malachi Test Yes Blood Gas Total Hemoglobin 12.00 12.0-16.0 g/dL Blood Gas Modality Room air FiO2 % 21.0 Urine Color Colorless Yellow Urine Clarity Turbid H Clear Urine pH 5.5 5.0-9.0 Urine Specific [place] 1.013 1.001-1.035 Urine Protein 1+ H Negative Urine Ketones Negative Negative Urine Blood 2+ H Negative /uL Urine Nitrite Negative Negative Urine Bilirubin Negative Negative Urine Urobilinogen Normal Negative mg/dL Urine Leukocyte Esterase 1+ Negative /uL Urine RBC 4 0 - 4 /hpf Urine Microscopic WBC 9 H 0-5 /HPF Urine Squamous Epithelial Cells Few <5 /hpf Urine Bacteria Few H None Seen /hpf Urine Glucose Normal Normal mg/dL Urine Test Negative Negative Troponin I High Sensitivity 28 </=34 ng/L Prothrombin Time 9.9 9.3-11.8 sec Prothrombin Time INR 0.93 0.9-1.15 Activated Partial Thromboplast Time 26.8 24.5-34.5 SEC Microbiology Date/Time Source Procedure Growth Status 04/17/25 10:44 Blood Blood Culture - Preliminary NO GROWTH AFTER 24 HOURS OF INCUBATION. Resulted Imaging: Assessment: GI bleed Diarrhea Nausea and vomiting Anemia and thrombocytopenia Acute kidney injury Hypertensive emergency Plan: Discussed with Dr. Roa CT abdomen and pelvis without contrast Protonix and Carafate Stool for occult blood, bacterial culture and C diff Recommend platelet transfusion Clear liquid diet Discussed plan with patient, family at bedside and RN Thank you for this consult Date of Service: April 18, 2025 Billing Provider: VIRAJ PARTIDA Common Visit Codes: CONSULT ONLY Consultation Codes: [id number] CONSULT <60MIN VIRAJ PARTIDA April 18, 2025 14:22
--- NOTE | 2025-04-18 15:43 | DVH ---
CT CT AB PEL WO CON-NO ORAL OR IV INDICATION: rectal bleed diarrhea EXAM DATE: 04/18/2025 02:52 PM COMPARISON: CT CT AB PEL WO CON-NO ORAL OR IV on DOS: 12/01/24, CT ABD PELVIS WO CONTRAST on DOS: RADIATION DOSE: CTDIvol: 6.61 mGy, DLP: 345.26 mGy*cm PROCEDURE: Helical CT images were obtained of the abdomen and pelvis without IV contrast Sagittal and coronal reconstructions are provided. ORAL CONTRAST: None. ADDITIONAL IMAGES / REFORMATS: None All C T scans at this medical facility are performed using dose modulation techniques as appropriate to a p erformed exam including the following: Automated exposure control was utilized; adjustment of the MA and/or KV according to patient size; and use of iterative reconstruction technique. FINDINGS: LUNG BASE: Right basilar atelectasis. LIVER: Normal. Trace perihepatic fluid. GALLBLADDER AND BILIARY TREE: No calcified gallstones. Normal caliber wall. No intra- or extrahepatic biliary ductal dilation. PANCREAS: Normal. SPLEEN: Normal. BOWEL: Mildly thickened loops of small bowel without dilation could be seen with enteritis. Appendix appears normal. ADRENALS: Normal. KIDNEYS AND URETER: Normal. BLADDER: Normal. REPRODUCTIVE ORGANS: Multiple ovarian cysts are seen measures 3.3 cm on the left and 3.2 cm on the ri ght. LYMPH NODES:No lymphadenopathy. PERITONEUM: No ascites or free air. No other fluid collection. Trace pelvic fluid is seen. VESSELS: Scattered atherosclerotic calcifications are noted. RETROPERITONEUM: Normal. ABDOMINAL WALL: Normal. BONES: Scattered osseous degenerative changes are noted. IMPRESSION: Mildly thickened loops of small bowel without dilation could be seen with enteritis. No hyperdense ma terial seen in the bowel. Multiple ovarian cysts are seen measures 3.3 cm on the left and 3.2 cm on the right. Pelvic US may be considered for further evaluation.
[2025-04-18] MEDS ORDERED: MORPHINE SULFATE 4 MG/ML SYR/VIAL IV PRN (17:15)
[2025-04-18] MEDS: HYDROcodone-ACET 10/325MG TAB PO PRN (17:36)
[2025-04-18] MEDS: MORPHINE SULFATE 4 MG/ML SYR/VIAL IV PRN (23:02)
[2025-04-19] VITALS (12 sets, daily range): BP systolic 113–182; BP diastolic 90–111; PULSE 64–105; RESP 16–20; TEMP 95.7–98.9; O2SAT 96–100
[2025-04-19 06:31] LABS: Chloride 104 mmol/L (98-107); Potassium 4.5 mmol/L (3.5-5.1)
[2025-04-19 06:32] LABS: Anion Gap 16 (5-15)
[2025-04-19 06:36] LABS: Calcium 8.3 mg/dL (8.7-10.4); Carbon Dioxide 13 mmol/L (20-31); Sodium 133 mmol/L (136-145)
[2025-04-19 06:40] LABS: Hematocrit 25.1 % (36.0-46.0); Hemoglobin 8.5 g/dL (12.2-16.2); White Blood Cell 9.1 10^3/uL (4.4-10.8)
[2025-04-19 06:48] LABS: Blood Urea Nitrogen 64 mg/dL (9-23); Glucose 133 mg/dL (74-106)
[2025-04-19 06:51] LABS: Mean Corpuscular Hemoglobin 33.8 pg (28.0-32.0); Mean Corpuscular Hgb Conc. 33.8 g/dL (32.0-36.0); Platelet Count (auto) 49 10^3/uL (140-450); Red Blood Cells 2.51 10^6/uL (4.0-5.20); Red Cell Distribution Width 18.2 % (11.8-14.3)
[2025-04-19 07:03] LABS: Basophils % (manual) 0 (0.0-2.0); Blast Cells 0; Eosinophils % (manual) 0 (0-7); Metamyelocytes % 0; Myelocytes % 0; Promyelocytes % 0; Reactive Lymphocytes 0
[2025-04-19] MEDS: hydrALAZINE HCL 25 MG TAB PO SCH (08:00)
[2025-04-19 08:06] LABS: Complement C3 97 mg/dL (82-167)
[2025-04-19 08:09] LABS: Band Neutrophils % (manual) 1; Lymphocytes % (manual) 10 (10.0-50.0); Monocytes % (manual) 2 (0-12); Platelet Estimate Decreased
[2025-04-19 10:07] LABS: Anti-Nuclear Antibody Direct Positive (Negative)
[2025-04-19] MEDS: SODIUM BICARB 8.4% 50Meq/50ml SYR Vial IV ONE (11:38)
[2025-04-19] MEDS: FUROSEMIDE 100 MG/10ML VIAL IV ONE (11:38)
--- NOTE | 2025-04-19 11:57 | DVHSR ---
APPROVED REPORT EXAM: Two-dimensional and M-mode echocardiogram with Doppler and color Doppler. Blood Pressure: 143/108 mmHg INDICATION Chest Pain HTN urgency RISK FACTORS Height: 4'11", Weight: 130 DIMENSIONS LVDd4.1 (3.8-5.7cm)LA (2D)3.4 (1.9-4.0cm)Aortic Root2.9 (2.0-3.7cm) LVDs2.3 (2.5-4.0cm)LA (MM) (1.9-4.0cm)Aortic Cusp Exc1.8 (1.5-2.0cm) EF (%) 62.0 (55-70%)Rt. Atrium3.2 (1.9-4.0cm)Asc. Aorta cm IVSd1.3 (0.7-1.1cm)RV (D)3.4 (1.8-2.4cm) PWd1.2 (0.7-1.1cm) Mitral Valve MitralMitral Stenosis E wave0.71m/sMV Mean GR.mmHg A wave0.65m/sMV Peak GR.mmHg E/A ratio1.12D MVAcm2 DECEL [id number] 1/2 Timems Aortic Valve Aortic ValveAortic Stenosis V11.15m/Baldo Mean GR.6mmHg V21.61m/Baldo Peak GR.10mmHg LVOT Diameter1.9 (1.8-2.4cm)Doppler AVA2.02cm2 Pulmonic Valve V21.09m/s Tricuspid Valve TR Velocity2.90m/s [id number] Conclusion lvef 75% mild lvh normal rv function normal atria no severe valve abnormalities noted
--- NOTE | 2025-04-19 12:12 | DVHPN2 ---
Progress Note - Dictate Date Seen: April 19, 2025 Medical Necessity Reason Pt with a Central, PICC or Fol: No Subjective Patient seen at bedside with parents. Discussed plan of care. Patient noted that when she was at [facility] a few weeks prior, she only received a transfusion but did not undergo any bone marrow biopsy. Patient expressed frustration at receiving CellCept at the time and notes that her symptoms got worse after this medication. I discussed with the patient that she is dealing with a autoimmune disease that is likely contributing to the bulk of her symptoms at this time. Patient was consented for platelet transfusion and was in agreement with transfusion. Patient expressed some anxiety about her recent health condition. vital signs Vital Sign Date Time Temp Pulse Resp B/P (MAP) Pulse Ox O2 Delivery O2 Flow Rate FiO2 04/19/25 09:00 95.7 100 17 161/98 (119) 97 95.7 04/18/25 20:00 Room Air* 0 21 Total Intake and Output 04/18/25 04/18/25 04/19/25 15:00 23:00 07:00 Intake Total 900 ml 220 ml 500 ml Output Total 600 ml Balance 300 ml 220 ml 500 ml medications Current Medications Medications Dose Ordered Sig/Kari Route Start Time Stop Time Status Last Admin Dose Admin Nitroglycerin 0.4 mg Q5MINP PRN SL 04/16/25 19:45 Pantoprazole Sodium 40 mg BID IV 04/16/25 22:00 04/18/25 23:02 40 MG Piperacillin Sod/ Tazobactam Sod 100 ml @ 25 mls/hr Q12HR IV 04/17/25 07:30 04/18/25 23:03 25 MLS/HR Hydralazine HCl 20 mg Q4HP PRN IV 04/17/25 09:45 04/19/25 03:40 20 MG Sodium Chloride 1,000 ml @ 100 mls/hr Q10H IV 04/17/25 09:45 04/18/25 15:45 100 MLS/HR Amlodipine Besylate 5 mg DAILY PO 04/17/25 10:00 04/18/25 10:36 5 MG Metoprolol Tartrate 12.5 mg BID PO 04/17/25 10:00 04/19/25 00:07 12.5 MG Ondansetron HCl 4 mg Q6HPRN PRN IV 04/18/25 09:30 04/18/25 10:48 4 MG Clonidine HCl 0.1 mg BID PO 04/18/25 10:00 04/18/25 23:03 0.1 MG Fentanyl Citrate 250 ml @ 2.5 mls/hr Q24H IV 04/18/25 10:00 Cancel Acetaminophen/ Hydrocodone Bitart 1 tab Q4HP PRN PO 04/18/25 17:00 04/18/25 17:36 1 TAB Morphine Sulfate 2 mg Q4HPRN PRN IV 04/18/25 17:00 04/18/25 23:02 2 MG Morphine Sulfate 2 mg Q30M PRN IV 04/18/25 17:15 Hydralazine HCl 50 mg Q6HR PO 04/19/25 08:00 objective General appearance: No acute distress Respiratory: Lungs clear to auscultation. No wheezing, crackles Cardiovascular: Regular rate and rhythm, no murmurs. No edema Abdomen: Soft, nondistended, nontender, bowel sounds present MSK: Normal range of motion. Neuro: Alert, no neurological deficits Psych: Anxious laboratory and microbiology Laboratory Tests 04/19/25 05:24 Test 04/19/25 05:24 Range/Units Serum Glucose 133 H 74-106 mg/dL Problem List 1) Hypertensive crisis 2) HIEN 2/2 NSAID use/?lupus nephritis 3) Thrombocytopenia 4) Metabolic acidosis 5) SLE 6) HTN -Patient weaned off nicardipine drip - Nephrology consulted for HIEN. Continue IV fluids. Lasix started. Pulse dose steroids to be weaned to p.o. steroids. Strict I/O. - Hematology consulted for thrombocytopenia - IR consulted for renal biopsy. 1 UPlatelets to be transfused with goal platelets to be greater than 50,000 prior to biopsy -Cardiology consulted, Dr. Pate for concern of underlying CHF. TTE result pending -GI consulted, Dr. Roa for diarrhea. NPO pending EGD. -Full code Plan discussed with: Patient TEA GOMEZ DO April 19, 2025 12:12
--- NOTE | 2025-04-19 12:36 | DVHPN2 ---
Progress Note Date Seen: April 19, 2025 Medical Necessity Reason Pt with a Central, PICC or Fol: No Subjective Patient reports: Feels better Review of Systems: Deferred Objective vital signs Vital Sign Date Time Temp Pulse Resp B/P (MAP) Pulse Ox O2 Delivery O2 Flow Rate FiO2 04/19/25 11:38 161/98 04/19/25 09:00 95.7 100 17 97 95.7 04/18/25 20:00 Room Air* 0 21 Total Intake and Output 04/18/25 04/18/25 04/19/25 15:00 23:00 07:00 Intake Total 900 ml 220 ml 500 ml Output Total 600 ml Balance 300 ml 220 ml 500 ml medications Current Medications Medications Dose Ordered Sig/Kari Route Start Time Stop Time Status Last Admin Dose Admin Nitroglycerin 0.4 mg Q5MINP PRN SL 04/16/25 19:45 Pantoprazole Sodium 40 mg BID IV 04/16/25 22:00 04/19/25 11:38 40 MG Piperacillin Sod/ Tazobactam Sod 100 ml @ 25 mls/hr Q12HR IV 04/17/25 07:30 04/18/25 23:03 25 MLS/HR Hydralazine HCl 20 mg Q4HP PRN IV 04/17/25 09:45 04/19/25 03:40 20 MG Sodium Chloride 1,000 ml @ 100 mls/hr Q10H IV 04/17/25 09:45 04/18/25 15:45 100 MLS/HR Amlodipine Besylate 5 mg DAILY PO 04/17/25 10:00 04/18/25 10:36 5 MG Metoprolol Tartrate 12.5 mg BID PO 04/17/25 10:00 04/19/25 00:07 12.5 MG Ondansetron HCl 4 mg Q6HPRN PRN IV 04/18/25 09:30 04/18/25 10:48 4 MG Clonidine HCl 0.1 mg BID PO 04/18/25 10:00 04/18/25 23:03 0.1 MG Fentanyl Citrate 250 ml @ 2.5 mls/hr Q24H IV 04/18/25 10:00 Cancel Acetaminophen/ Hydrocodone Bitart 1 tab Q4HP PRN PO 04/18/25 17:00 04/18/25 17:36 1 TAB Morphine Sulfate 2 mg Q4HPRN PRN IV 04/18/25 17:00 04/18/25 23:02 2 MG Morphine Sulfate 2 mg Q30M PRN IV 04/18/25 17:15 Hydralazine HCl 50 mg Q6HR PO 04/19/25 08:00 Examination: GENERAL:Abnormal, CVS:Normal, SKIN:Abnormal laboratory and microbiology Laboratory Tests 04/19/25 05:24 Test 04/19/25 05:24 Range/Units Serum Glucose 133 H 74-106 mg/dL Microbiology Date/Time Source Procedure Growth Status 04/18/25 09:30 Voided Urine Urine Culture - Preliminary Resulted 04/17/25 10:44 Blood Blood Culture - Preliminary NO GROWTH AFTER 48 HOURS OF INCUBATION. Resulted Problem List/Assessment/Plan Problem List/Assessment/Plan Acute kidney injury GN vs ATN/nephrotoxicity (reports excessive nsaids use) ckd II Autoimmune disease SLE vs psoriasis anemia and thrombocytopenia primary medical disease vs immunosuppression hypertensive emergency Patient BP control w/ po meds hydralazine BID, norvasc, metoprolol, clonindine off nicardipine drip GI for bleeding currently NPO patient benefits from kidney biopsy for diagnosis and management, remains on hold until PLTs have improved IV steroids pulse yesterday given complement levels are normal lupus nephritis seems less likely the cause. Given patient reports failed cellcept will give po steroids for now until taper occurs and biopsy results serum serologies and UPC ratio minimal proteinuria no emergent indication for dialysis at this time however cr is worsening obtain records from [facility] admission and hematology eval for low PLTs Plan discussed with: Patient My Orders My Orders Orders - JESSICA LINDSEY MD Procedure Category Date Status Time Hydralazine Hcl PHA 04/19/25 In Process Tablet (Apresoline 08:00 JESSICA LINDSEY MD April 19, 2025 12:36
--- NOTE | 2025-04-19 14:06 | DVHPN2 ---
Subjective Patient admits to feeling better No abdominal pain. No nausea or vomiting Still having dark stool but improving from before per patient Changes from previous H/P or p: No Changes Objective Vitals Vital Signs Date Time Temp Pulse Resp B/P (MAP) Pulse Ox O2 Delivery O2 Flow Rate FiO2 04/19/25 13:40 167/80 04/19/25 09:00 95.7 100 17 97 95.7 04/18/25 20:00 Room Air* 0 21 Intake/Output Intake and Output 04/19/25 07:00 Intake Total 1620 ml Output Total 600 ml Balance 1020 ml Intake Oral 620 ml IV Total 1000 ml Output Urine Total 600 ml # Voids 1 General Appearance: Alert, Oriented X3, Cooperative, No acute distress, mild distress, moderate distress, severe distress, Other Lungs: Clear to auscultation, Normal air movement, Other Cardiovascular: Regular rate, Normal S1, Normal S2, No murmurs, Gallops, Rubs, Other Abdomen: Normal bowel sounds, Soft, No tenderness, No hepatospenomegaly, No masses, Other Medications Current Medications Medications Dose Ordered Sig/Kari Route Start Time Stop Time Status Last Admin Dose Admin Nitroglycerin 0.4 mg Q5MINP PRN SL 04/16/25 19:45 Pantoprazole Sodium 40 mg BID IV 04/16/25 22:00 04/19/25 11:38 40 MG Piperacillin Sod/ Tazobactam Sod 100 ml @ 25 mls/hr Q12HR IV 04/17/25 07:30 04/19/25 12:32 25 MLS/HR Hydralazine HCl 20 mg Q4HP PRN IV 04/17/25 09:45 04/19/25 03:40 20 MG Sodium Chloride 1,000 ml @ 100 mls/hr Q10H IV 04/17/25 09:45 04/18/25 15:45 100 MLS/HR Amlodipine Besylate 5 mg DAILY PO 04/17/25 10:00 04/18/25 10:36 5 MG Metoprolol Tartrate 12.5 mg BID PO 04/17/25 10:00 04/19/25 00:07 12.5 MG Ondansetron HCl 4 mg Q6HPRN PRN IV 04/18/25 09:30 04/18/25 10:48 4 MG Clonidine HCl 0.1 mg BID PO 04/18/25 10:00 04/18/25 23:03 0.1 MG Fentanyl Citrate 250 ml @ 2.5 mls/hr Q24H IV 04/18/25 10:00 Cancel Acetaminophen/ Hydrocodone Bitart 1 tab Q4HP PRN PO 04/18/25 17:00 04/18/25 17:36 1 TAB Morphine Sulfate 2 mg Q4HPRN PRN IV 04/18/25 17:00 04/18/25 23:02 2 MG Morphine Sulfate 2 mg Q30M PRN IV 04/18/25 17:15 Hydralazine HCl 50 mg Q6HR PO 04/19/25 08:00 04/19/25 13:40 50 MG Laboratory Results Laboratory Tests 04/19/25 05:24 Chemistry Test 04/19/25 05:24 Calcium Level 8.3 mg/dL (8.7-10.4) L Urinalysis Test 04/17/25 05:24 04/18/25 09:30 Urine Color Colorless (Yellow) Urine Clarity Turbid (Clear) H Urine pH 5.5 (5.0-9.0) Urine Specific [place] 1.013 (1.001-1.035) Urine Protein 1+ (Negative) H Urine Ketones Negative (Negative) Urine Blood 2+ /uL (Negative) H Urine Nitrite Negative (Negative) Urine Bilirubin Negative (Negative) Urine Urobilinogen Normal mg/dL (Negative) Urine Leukocyte Esterase 1+ /uL (Negative) Urine RBC 4 /hpf (0 - 4) Urine Microscopic WBC 9 /HPF (0-5) H Urine Squamous Epithelial Cells Few /hpf (<5) Urine Bacteria Few /hpf (None Seen) H Urine Glucose Normal mg/dL (Normal) Urine Test Negative (Negative) Urine Creatinine 39.51 mg/dL (30.0-125.0) Urine Sodium 72 mmol/L (40-220) Urine Total Protein 52.6 mg/dL (1-14) H Microbiology Microbiology Date/Time Source Procedure Growth Status 04/18/25 09:30 Voided Urine Urine Culture - Preliminary Resulted 04/17/25 10:44 Blood Blood Culture - Preliminary NO GROWTH AFTER 48 HOURS OF INCUBATION. Resulted Labs and/or images reviewed: Labs reviewed by me, Image(s) reviewed by me Assessment/Plan Assessment/Plan GI bleed Diarrhea Nausea and vomiting Anemia and thrombocytopenia Acute kidney injury Hypertensive emergency Plan Discussed with Dr. Roa Plan for possible EGD for today discussed extensively with patient including risks benefits and alternatives of procedure and sedation discussed, patient at this time is refusing to have EGD done today Continue Protonix Diet as tolerated Repeat GI services if any active bleeding Plan discussed with: Patient, Other (Family at bedside and RN) My Orders Orders - VIRAJ PARTIDA Procedure Category Date Status Time Stool Bacterial EDGARDO 04/19/25 Logged Culture 08:00 Clostridium Difficile EDGARDO 04/19/25 Logged Toxin 08:00 Ct Ab Pel Wo Con-No CT 04/18/25 Resulted Oral Or Iv 14:22 Date of Service: April 19, 2025 Billing Provider: VIRAJ PARTIDA Common Visit Codes: [id number] INP/OBS CARE(HIGH) VIRAJ PARTIDA April 19, 2025 14:06
[2025-04-19] MEDS: methylPREDNISolone SOD SUCC 500 MG in SODIUM CHL 0.9% 100 ML IV ONE (18:43)
[2025-04-20] VITALS (8 sets, daily range): BP systolic 146–176; BP diastolic 89–105; PULSE 78–98; RESP 14–19; TEMP 97.5–98.9; O2SAT 96–100
[2025-04-20 07:40] LABS: Basophils # (auto) 0 10 ^3/uL (0-0.2); Basophils % (auto) 0.1 % (0.0-2.0); Eosinophils # (auto) 0 10 ^3/uL (0-0.8); Hemoglobin 7.2 g/dL (12.2-16.2); Lymphocytes # (auto) 0.8 10 ^3/uL (0.4-5.4); Monocytes # (auto) 0.2 10 ^3/uL (0-1.3)
[2025-04-20 07:43] LABS: Lymphocytes % (auto) 10.6 % (10.0-50.0); Mean Corpuscular Hemoglobin 33.6 pg (28.0-32.0); Mean Corpuscular Hgb Conc. 34.1 g/dL (32.0-36.0); Mean Corpuscular Volume 98.4 fL (80.0-100.0); Monocytes % (auto) 2.2 % (0.0-12.0); Neutrophils # (auto) 6.4 10 ^3/uL (1.6-8.6); Neutrophils % (auto) 87.1 % (37.0-80.0); Nucleated Red Blood Cells % 4.2 %; Platelet Count (auto) 74 10^3/uL (140-450); Red Blood Cells 2.14 10^6/uL (4.0-5.20); Red Cell Distribution Width 18.3 % (11.8-14.3); White Blood Cell 7.4 10^3/uL (4.4-10.8)
[2025-04-20 07:51] LABS: Anion Gap 15 (5-15); Chloride 104 mmol/L (98-107); Potassium 3.7 mmol/L (3.5-5.1)
[2025-04-20 07:52] LABS: Calcium 8.9 mg/dL (8.7-10.4)
[2025-04-20 07:57] LABS: BUN/Creatinine Ratio 9.2 (10.0-20.0); Carbon Dioxide 17 mmol/L (20-31); Sodium 136 mmol/L (136-145)
[2025-04-20 07:58] LABS: Blood Urea Nitrogen 60 mg/dL (9-23); Glucose 138 mg/dL (74-106)
[2025-04-20] MEDS ORDERED: fentaNYL CITRATE 100 MCG/2 ML VL ONE (09:13)
--- NOTE | 2025-04-20 11:42 | DVHPN2 ---
Progress Note Date Seen: April 20, 2025 Medical Necessity Reason Pt with a Central, PICC or Fol: No Subjective Patient reports: No new complaints Objective vital signs Vital Sign Date Time Temp Pulse Resp B/P (MAP) Pulse Ox O2 Delivery O2 Flow Rate FiO2 04/20/25 10:28 160/98 04/20/25 10:28 92 04/20/25 09:00 98.9 16 100 98.9 04/19/25 20:00 Room Air* 0 21 Total Intake and Output 04/19/25 04/19/25 04/20/25 15:00 23:00 07:00 Intake Total 300 ml 1050 ml Balance 300 ml 1050 ml medications Current Medications Medications Dose Ordered Sig/Kari Route Start Time Stop Time Status Last Admin Dose Admin Nitroglycerin 0.4 mg Q5MINP PRN SL 04/16/25 19:45 Pantoprazole Sodium 40 mg BID IV 04/16/25 22:00 04/20/25 10:29 40 MG Piperacillin Sod/ Tazobactam Sod 100 ml @ 25 mls/hr Q12HR IV 04/17/25 07:30 04/20/25 10:29 25 MLS/HR Hydralazine HCl 20 mg Q4HP PRN IV 04/17/25 09:45 04/20/25 04:45 20 MG Sodium Chloride 1,000 ml @ 100 mls/hr Q10H IV 04/17/25 09:45 04/19/25 21:45 100 MLS/HR Amlodipine Besylate 5 mg DAILY PO 04/17/25 10:00 04/20/25 10:28 5 MG Metoprolol Tartrate 12.5 mg BID PO 04/17/25 10:00 04/20/25 10:28 12.5 MG Ondansetron HCl 4 mg Q6HPRN PRN IV 04/18/25 09:30 04/18/25 10:48 4 MG Clonidine HCl 0.1 mg BID PO 04/18/25 10:00 04/20/25 10:28 0.1 MG Fentanyl Citrate 250 ml @ 2.5 mls/hr Q24H IV 04/18/25 10:00 Cancel Acetaminophen/ Hydrocodone Bitart 1 tab Q4HP PRN PO 04/18/25 17:00 04/20/25 10:26 1 TAB Morphine Sulfate 2 mg Q4HPRN PRN IV 04/18/25 17:00 04/20/25 04:47 2 MG Morphine Sulfate 2 mg Q30M PRN IV 04/18/25 17:15 Hydralazine HCl 50 mg Q6HR PO 04/19/25 08:00 04/20/25 06:16 50 MG Examination: GENERAL:Abnormal, CVS:Normal, SKIN:Abnormal laboratory and microbiology Laboratory Tests 04/20/25 06:51 Test 04/20/25 06:51 Range/Units Serum Glucose 138 H 74-106 mg/dL Microbiology Date/Time Source Procedure Growth Status 04/19/25 19:52 Stool Stool Culture - Preliminary Resulted 04/19/25 19:52 Stool Shiga Toxin I & II Pending Resulted 04/18/25 09:30 Voided Urine Urine Culture - Preliminary Resulted 04/17/25 10:44 Blood Blood Culture - Preliminary NO GROWTH AFTER 72 HOURS OF INCUBATION. Resulted Problem List/Assessment/Plan Problem List/Assessment/Plan Acute kidney injury GN vs ATN/nephrotoxicity (reports excessive nsaids use) ckd II Autoimmune disease SLE vs psoriasis few schistocytes and low haptoglobin, thrombocytopenia hypertensive emergency Patient BP control w/ po meds hydralazine BID, norvasc, metoprolol, clonindine GI patient benefits from kidney biopsy for diagnosis and management, remains on hold until PLTs have improved IV steroids pulse day 2 will complete 3 days elevated JENNIFER, normal c4, elevated ESR. recommend high dose steroids biopsy to confirm send [id number], send LDH Rheumatology minimal proteinuria no emergent indication for dialysis at this time however cr is worsening explained possible need soon obtain records from [facility] admission and hematology eval for low PLTs Plan discussed with: Patient JESSICA LINDSEY MD April 20, 2025 11:42
[2025-04-20 12:07] LABS: Cytoplasmic (C-ANCA) <1:20 titer (Neg:<1:20); Perinuclear (P-ANCA) <1:20 titer (Neg:<1:20)
[2025-04-20 12:07] LABS: Cytoplasmic (C-ANCA) <1:20 titer (Neg:<1:20); Perinuclear (P-ANCA) <1:20 titer (Neg:<1:20)
--- NOTE | 2025-04-20 13:07 | DVHPN2 ---
Progress Note - Dictate Date Seen: April 20, 2025 Medical Necessity Reason Pt with a Central, PICC or Fol: No Subjective No new complaints No abdominal pain. No nausea or vomiting Patient is sleeping comfortably No active GI bleeding reported;Patient had dark stools Hemoglobin down to 7.2 Kidney biopsy canceled because of uncontrolled hypertension vital signs Vital Sign Date Time Temp Pulse Resp B/P (MAP) Pulse Ox O2 Delivery O2 Flow Rate FiO2 04/20/25 12:01 166/111 04/20/25 10:28 92 04/20/25 09:00 98.9 16 100 98.9 04/19/25 20:00 Room Air* 0 21 Total Intake and Output 04/19/25 04/19/25 04/20/25 15:00 23:00 07:00 Intake Total 300 ml 1050 ml Balance 300 ml 1050 ml medications Current Medications Medications Dose Ordered Sig/Kari Route Start Time Stop Time Status Last Admin Dose Admin Nitroglycerin 0.4 mg Q5MINP PRN SL 04/16/25 19:45 Pantoprazole Sodium 40 mg BID IV 04/16/25 22:00 04/20/25 10:29 40 MG Piperacillin Sod/ Tazobactam Sod 100 ml @ 25 mls/hr Q12HR IV 04/17/25 07:30 04/20/25 10:29 25 MLS/HR Hydralazine HCl 20 mg Q4HP PRN IV 04/17/25 09:45 04/20/25 04:45 20 MG Sodium Chloride 1,000 ml @ 100 mls/hr Q10H IV 04/17/25 09:45 04/19/25 21:45 100 MLS/HR Amlodipine Besylate 5 mg DAILY PO 04/17/25 10:00 04/20/25 10:28 5 MG Metoprolol Tartrate 12.5 mg BID PO 04/17/25 10:00 04/20/25 10:28 12.5 MG Ondansetron HCl 4 mg Q6HPRN PRN IV 04/18/25 09:30 04/18/25 10:48 4 MG Fentanyl Citrate 250 ml @ 2.5 mls/hr Q24H IV 04/18/25 10:00 Cancel Acetaminophen/ Hydrocodone Bitart 1 tab Q4HP PRN PO 04/18/25 17:00 04/20/25 10:26 1 TAB Morphine Sulfate 2 mg Q4HPRN PRN IV 04/18/25 17:00 04/20/25 04:47 2 MG Morphine Sulfate 2 mg Q30M PRN IV 04/18/25 17:15 Hydralazine HCl 50 mg Q6HR PO 04/19/25 08:00 04/20/25 12:01 50 MG Clonidine HCl 0.2 mg TID PO 04/20/25 14:00 UNV objective General Appearance: Alert, Oriented X3, Cooperative, No acute distress, mild distress, moderate distress, severe distress, Other Lungs: Clear to auscultation, Normal air movement, Other Cardiovascular: Regular rate, Normal S1, Normal S2, No murmurs, Gallops, Rubs, Other Abdomen: Normal bowel sounds, Soft, No tenderness, No hepatospenomegaly, No masses, laboratory and microbiology Laboratory Tests 04/20/25 06:51 Test 04/20/25 06:51 Range/Units Serum Glucose 138 H 74-106 mg/dL CT SCAN ABD PELVIS IMPRESSION: Mildly thickened loops of small bowel without dilation could be seen with enteritis. No hyperdense material seen in the bowel. Multiple ovarian cysts are seen measures 3.3 cm on the left and 3.2 cm on the right. Pelvic US may be considered for further evaluation. Problems(with codes): (1) Hypertensive emergency (2) Patient takes NSAID (non-steroid anti-inflammatory drug) (3) HIEN (acute kidney injury) (4) GI bleed (5) Acute renal failure (6) Hypertensive crisis (7) Lupus (8) Positive occult stool blood test Prognosis Plan Pt was advised and offered an EGD for yesterday; discussed extensively with patient including risks benefits and alternatives of procedure and sedation discussed, Patient at that time was refusing to have EGD done as documented Continue Protonix IV q.12 hours Diet as tolerated; monitor daily labs Transfuse 1 unit PRBC if hemoglobin drops below seven I will be out of town this weekend, please reconsult GI on-call during the weekend if there is any urgent GI intervention required or if the patient shows signs of active GI bleeding and if the patient is agreeable to endoscopic procedures Plan discussed with: Patient, Other (Vane mccarthy) JEMMA KAM MD April 20, 2025 13:07
[2025-04-20] MEDS: cloNIDine HCL 0.1 MG TAB PO SCH (14:20)
[2025-04-20 15:07] LABS: Antimyeloperoxidase (MPO) Ab <0.2 units (0.0-0.9); Antiproteinase 3 (PR-3) Ab <0.2 units (0.0-0.9)
[2025-04-20 15:07] LABS: Antimyeloperoxidase (MPO) Ab <0.2 units (0.0-0.9); Antiproteinase 3 (PR-3) Ab <0.2 units (0.0-0.9)
--- NOTE | 2025-04-20 15:26 | DVHPN2 ---
Progress Note - Dictate Date Seen: April 20, 2025 Medical Necessity Reason Pt with a Central, PICC or Fol: No Subjective Patient seen at bedside with parents. Renal biopsy unable to be completed this AM due to hypertension. vital signs Vital Sign Date Time Temp Pulse Resp B/P (MAP) Pulse Ox O2 Delivery O2 Flow Rate FiO2 04/20/25 14:20 166/103 04/20/25 13:00 98.4 83 16 97 98.4 04/19/25 20:00 Room Air* 0 21 Total Intake and Output 04/19/25 04/19/25 04/20/25 15:00 23:00 07:00 Intake Total 300 ml 1050 ml Balance 300 ml 1050 ml medications Current Medications Medications Dose Ordered Sig/Kari Route Start Time Stop Time Status Last Admin Dose Admin Nitroglycerin 0.4 mg Q5MINP PRN SL 04/16/25 19:45 Pantoprazole Sodium 40 mg BID IV 04/16/25 22:00 04/20/25 10:29 40 MG Piperacillin Sod/ Tazobactam Sod 100 ml @ 25 mls/hr Q12HR IV 04/17/25 07:30 04/20/25 10:29 25 MLS/HR Hydralazine HCl 20 mg Q4HP PRN IV 04/17/25 09:45 04/20/25 04:45 20 MG Sodium Chloride 1,000 ml @ 100 mls/hr Q10H IV 04/17/25 09:45 04/19/25 21:45 100 MLS/HR Amlodipine Besylate 5 mg DAILY PO 04/17/25 10:00 04/20/25 10:28 5 MG Metoprolol Tartrate 12.5 mg BID PO 04/17/25 10:00 04/20/25 10:28 12.5 MG Ondansetron HCl 4 mg Q6HPRN PRN IV 04/18/25 09:30 04/18/25 10:48 4 MG Fentanyl Citrate 250 ml @ 2.5 mls/hr Q24H IV 04/18/25 10:00 Cancel Acetaminophen/ Hydrocodone Bitart 1 tab Q4HP PRN PO 04/18/25 17:00 04/20/25 10:26 1 TAB Morphine Sulfate 2 mg Q4HPRN PRN IV 04/18/25 17:00 04/20/25 04:47 2 MG Morphine Sulfate 2 mg Q30M PRN IV 04/18/25 17:15 Hydralazine HCl 50 mg Q6HR PO 04/19/25 08:00 04/20/25 12:01 50 MG Clonidine HCl 0.2 mg TID PO 04/20/25 14:00 04/20/25 14:20 0.2 MG objective General appearance: No acute distress Respiratory: Lungs clear to auscultation. No wheezing, crackles Cardiovascular: Regular rate and rhythm, no murmurs. No edema Abdomen: Soft, nondistended, nontender, bowel sounds present MSK: Normal range of motion. Neuro: Alert, no neurological deficits Psych: Anxious laboratory and microbiology Laboratory Tests 04/20/25 06:51 Test 04/20/25 06:51 Range/Units Serum Glucose 138 H 74-106 mg/dL Problem List 1) Hypertensive crisis 2) HIEN 2/2 NSAID use/?lupus nephritis 3) Thrombocytopenia 4) Metabolic acidosis 5) SLE 6) HTN -Patient weaned off nicardipine drip. Clonidine dosage increased. Adding nifedipine due to persistently elevated SBP. - Nephrology consulted for HIEN. Continue IV fluids, lasix. Continue pulse dose steroid today 500mg IV solumedrol then begin weaning for concern of lupus nephritis/SLE flare. - Hematology consulted for thrombocytopenia and anemia, likely secondary to SLE flare. Direct merritt negative. Haptoglobin low. - IR consulted for renal biopsy. Pending repeat attempt on Wednesday due to hypertension. -Rheumatology consulted, however service unavailable. Discussed care with outpatient Crane Mechanic who advised HLOC transfer given worsening deterioration and need for Rituxin initiation. -Cardiology consulted, Dr. Pate for concern of underlying CHF. TTE shows normal EF. -GI consulted, Dr. Roa for diarrhea. C. Diff pending. EGD on hold at this time. -Full code Dietary Evaluation Review Comments: Continue current POC Expected Outcomes/Goals: To meet >75% estimated needs Fu 3-5 days Plan discussed with: Patient TEA GOMEZ April 20, 2025 15:25
[2025-04-20] MEDS: NIFEdipine ER 30 MG TAB PO ONE (16:44)
[2025-04-20] MEDS: methylPREDNISolone SOD SUCC 500 MG in SODIUM CHL 0.9% 100 ML IV ONE (17:08)
[2025-04-21] VITALS (24 sets, daily range): BP systolic 109–166; BP diastolic 69–105; PULSE 73–82; RESP 15–19; TEMP 97.6–99; O2SAT 95–99
[2025-04-21 07:46] LABS: Anion Gap 15 (5-15); Chloride 103 mmol/L (98-107); Potassium 3.9 mmol/L (3.5-5.1)
[2025-04-21 07:47] LABS: Calcium 8.8 mg/dL (8.7-10.4)
[2025-04-21 07:52] LABS: BUN/Creatinine Ratio 9.7 (10.0-20.0)
[2025-04-21 07:53] LABS: Blood Urea Nitrogen 71 mg/dL (9-23); Carbon Dioxide 16 mmol/L (20-31); Glucose 133 mg/dL (74-106); Sodium 134 mmol/L (136-145)
[2025-04-21 08:34] LABS: Hematocrit 20.9 % (36.0-46.0); Mean Corpuscular Hemoglobin 33.5 pg (28.0-32.0); Mean Corpuscular Hgb Conc. 33.4 g/dL (32.0-36.0); Mean Corpuscular Volume 100.3 fL (80.0-100.0); Platelet Count (auto) 69 10^3/uL (140-450); Red Blood Cells 2.08 10^6/uL (4.0-5.20); Red Cell Distribution Width 18.1 % (11.8-14.3)
[2025-04-21 08:39] LABS: Basophils % (manual) 0 (0.0-2.0); Blast Cells 0; Metamyelocytes % 0; Myelocytes % 0; Promyelocytes % 0; Reactive Lymphocytes 0
[2025-04-21] MEDS: SODIUM BICARB 50mEq/50ml Vial 75 ML in SOD CHL 0.45% 1,000 ML IV SCH (09:00)
[2025-04-21 09:32] LABS: Band Neutrophils % (manual) 5; Eosinophils % (manual) 1 (0-7); Lymphocytes % (manual) 17 (10.0-50.0); Monocytes % (manual) 5 (0-12)
[2025-04-21 09:33] LABS: Anisocytosis Slight; Macrocytosis Slight; Platelet Estimate Decreased; Tear Drop Cells FEW
[2025-04-21] MEDS: FUROSEMIDE 100 MG/10ML VIAL IV SCH (10:00)
--- NOTE | 2025-04-21 10:44 | DVHPN2 ---
Progress Note Date Seen: April 21, 2025 Medical Necessity Reason Pt with a Central, PICC or Fol: No Subjective Patient reports: Feels better Objective vital signs Vital Sign Date Time Temp Pulse Resp B/P (MAP) Pulse Ox O2 Delivery O2 Flow Rate FiO2 04/21/25 10:22 75 109/69 04/21/25 09:00 97.8 15 95 97.8 04/21/25 08:00 Room Air* 0 21 Total Intake and Output 04/20/25 04/20/25 04/21/25 15:00 23:00 07:00 Intake Total 100 ml 820 ml 1040 ml Balance 100 ml 820 ml 1040 ml medications Current Medications Medications Dose Ordered Sig/Kari Route Start Time Stop Time Status Last Admin Dose Admin Nitroglycerin 0.4 mg Q5MINP PRN SL 04/16/25 19:45 Pantoprazole Sodium 40 mg BID IV 04/16/25 22:00 04/21/25 10:20 40 MG Piperacillin Sod/ Tazobactam Sod 100 ml @ 25 mls/hr Q12HR IV 04/17/25 07:30 04/21/25 10:20 25 MLS/HR Hydralazine HCl 20 mg Q4HP PRN IV 04/17/25 09:45 04/20/25 04:45 20 MG Metoprolol Tartrate 12.5 mg BID PO 04/17/25 10:00 04/21/25 10:22 12.5 MG Ondansetron HCl 4 mg Q6HPRN PRN IV 04/18/25 09:30 04/18/25 10:48 4 MG Fentanyl Citrate 250 ml @ 2.5 mls/hr Q24H IV 04/18/25 10:00 Cancel Acetaminophen/ Hydrocodone Bitart 1 tab Q4HP PRN PO 04/18/25 17:00 04/21/25 01:15 1 TAB Morphine Sulfate 2 mg Q4HPRN PRN IV 04/18/25 17:00 04/21/25 02:34 2 MG Morphine Sulfate 2 mg Q30M PRN IV 04/18/25 17:15 Hydralazine HCl 50 mg Q6HR PO 04/19/25 08:00 04/21/25 06:03 50 MG Clonidine HCl 0.2 mg TID PO 04/20/25 14:00 04/21/25 06:04 0.2 MG Sodium Bicarbonate 75 ml/ Sodium Chloride 1,075 ml @ 75 mls/hr [id number] IV 04/21/25 09:00 Furosemide 60 mg DAILY IV 04/21/25 10:00 Examination: GENERAL:Normal, SKIN:Abnormal laboratory and microbiology Laboratory Tests 04/21/25 06:55 Test 04/21/25 06:55 Range/Units Serum Glucose 133 H 74-106 mg/dL Microbiology Date/Time Source Procedure Growth Status 04/19/25 19:52 Stool Stool Culture - Preliminary Resulted 04/19/25 19:52 Stool Shiga Toxin I & II - Final Resulted 04/18/25 09:30 Voided Urine Urine Culture - Final Complete 04/17/25 10:44 Blood Blood Culture - Preliminary NO GROWTH AFTER 72 HOURS OF INCUBATION. Resulted Problem List/Assessment/Plan Problem List/Assessment/Plan Acute kidney injury GN + ATN/nephrotoxicity (reports excessive nsaids use) ckd II Autoimmune disease SLE anemia few schistocytes and low haptoglobin, thrombocytopenia hypertensive emergency BP normalized today, patient feels better and is urinating more Patient BP control w/ po meds, norvasc, metoprolol, clonidine dose increased GI patient benefits from kidney biopsy for diagnosis and management, remains on hold until PLTs have improved IV steroids pulse day 3 elevated JENNIFER, normal c4, elevated ESR. recommend high dose steroids biopsy to confirm underlying pathology send [id number], LDH elevated Rheumatology minimal proteinuria PRBC and PLTs today change fluids to IV bicarb drip, lasix push explained progressive decline in renal function may require renal replacement temporarily for metabolic clearence if continues to decline Plan discussed with: Patient My Orders My Orders Orders - JSESICA LINDSEY MD Procedure Category Date Status Time Communication Order ORDERS 04/20/25 Transmitted 11:36 Clonidine Hcl Tablet PHA 04/20/25 In Process (Catapres Tablet) 14:00 Sod Chl 0.45% PHA 04/21/25 In Process (Sodi... W/Sodium 09:00 Furosemide Injection PHA 04/21/25 In Process (Lasix Injection) 10:00 Dietary Evaluation Review Comments: Continue current POC Expected Outcomes/Goals: To meet >75% estimated needs Fu 3-5 days JESSICA LINDSEY MD April 21, 2025 10:44
--- NOTE | 2025-04-21 10:56 | DVHPN2 ---
Progress Note - Dictate Date Seen: April 21, 2025 Medical Necessity Reason Pt with a Central, PICC or Fol: No Subjective Discussed likelihood of starting dialysis given worsening renal function. I discussed pending transfer for patient to [facility] at this time. Patient denies any gross signs of GI bleeding. Discussed need to transfuse platelets and PRBC today. vital signs Vital Sign Date Time Temp Pulse Resp B/P (MAP) Pulse Ox O2 Delivery O2 Flow Rate FiO2 04/21/25 10:22 75 109/69 04/21/25 09:00 97.8 15 95 97.8 04/21/25 08:00 Room Air* 0 21 Total Intake and Output 04/20/25 04/20/25 04/21/25 15:00 23:00 07:00 Intake Total 100 ml 820 ml 1040 ml Balance 100 ml 820 ml 1040 ml medications Current Medications Medications Dose Ordered Sig/Kari Route Start Time Stop Time Status Last Admin Dose Admin Nitroglycerin 0.4 mg Q5MINP PRN SL 04/16/25 19:45 Pantoprazole Sodium 40 mg BID IV 04/16/25 22:00 04/21/25 10:20 40 MG Piperacillin Sod/ Tazobactam Sod 100 ml @ 25 mls/hr Q12HR IV 04/17/25 07:30 04/21/25 10:20 25 MLS/HR Hydralazine HCl 20 mg Q4HP PRN IV 04/17/25 09:45 04/20/25 04:45 20 MG Metoprolol Tartrate 12.5 mg BID PO 04/17/25 10:00 04/21/25 10:22 12.5 MG Ondansetron HCl 4 mg Q6HPRN PRN IV 04/18/25 09:30 04/18/25 10:48 4 MG Fentanyl Citrate 250 ml @ 2.5 mls/hr Q24H IV 04/18/25 10:00 Cancel Acetaminophen/ Hydrocodone Bitart 1 tab Q4HP PRN PO 04/18/25 17:00 04/21/25 01:15 1 TAB Morphine Sulfate 2 mg Q4HPRN PRN IV 04/18/25 17:00 04/21/25 02:34 2 MG Morphine Sulfate 2 mg Q30M PRN IV 04/18/25 17:15 Hydralazine HCl 50 mg Q6HR PO 04/19/25 08:00 04/21/25 06:03 50 MG Clonidine HCl 0.2 mg TID PO 04/20/25 14:00 04/21/25 06:04 0.2 MG Sodium Bicarbonate 75 ml/ Sodium Chloride 1,075 ml @ 75 mls/hr [id number] IV 04/21/25 09:00 Furosemide 60 mg DAILY IV 04/21/25 10:00 objective General appearance: No acute distress Respiratory: Lungs clear to auscultation. No wheezing, crackles Cardiovascular: Regular rate and rhythm, no murmurs. No edema MSK: Normal range of motion. Neuro: Alert, no neurological deficits laboratory and microbiology Laboratory Tests 04/21/25 06:55 Test 04/21/25 06:55 Range/Units Serum Glucose 133 H 74-106 mg/dL Problem List 1) Hypertensive crisis 2) HIEN 2/2 NSAID use/?lupus nephritis 3) Thrombocytopenia 4) Metabolic acidosis 5) SLE 6) HTN 7) Anemia -Clonidine dosage increased. Adding nifedipine 90mg ER due to persistently elevated SBP, improving today. - Nephrology consulted for HIEN. Continue IV fluids, lasix. Plan for increasing pulse dose to 1000mg solumedrol. - Hematology consulted for thrombocytopenia and anemia, likely secondary to SLE flare. Direct merritt negative. Haptoglobin low. Fibrinogen ordered. Formal consult pending. - IR consulted for renal biopsy. Pending repeat attempt on Wednesday due to hypertension. -Rheumatology consulted, however service unavailable. Discussed care with outpatient Power Digger Operator who advised HLOC transfer given worsening deterioration and need for Rituxin initiation. -Cardiology consulted, Dr. Pate for concern of underlying CHF. TTE shows normal EF. -GI consulted, Dr. Roa for diarrhea. C. Diff pending. EGD on hold at this time as patient refused. -Transfuse 1U PRBC and 1U Platelets 04/21. -[facility] transfer pending at this time. -Full code Dietary Evaluation Review Comments: Continue current POC Expected Outcomes/Goals: To meet >75% estimated needs Fu 3-5 days Plan discussed with: Patient TEA GOMEZ DO April 21, 2025 10:56
[2025-04-21] MEDS ORDERED: ACETAMINOPHEN 325 MG TAB PO PRN (11:00)
[2025-04-21] MEDS ORDERED: CALCIUM GLUC 1,000mg/50ml-NS 50 ML IV SCH (14:30)
[2025-04-21] MEDS ORDERED: LORazepam 2MG/ML-1ML VIAL IM ONE (15:45)
[2025-04-21] MEDS: LORazepam 2MG/ML-1ML VIAL IV ONE (16:05)
--- NOTE | 2025-04-21 17:02 | DVHNC2 ---
Central Line Recorder of insertion practice: Roll Line Operator Occupation of critical care nurse practitioner: Other (Zac Vaca NP) Indication: Other (Plasma pharesis) Room prepared for procedure: Yes Roll Line Operator performed hand hygien: Yes Maximal sterile barrier precau: Mask/Eye shield, Sterile gown, Cap, Sterlie gloves, Large sterlie drape Skin Preparation: Chlorhexidine gluconate, Providine iodine Skin preparation completely dr: Yes Insertion site: Right, Internal jugular Central line catheter type: [id number] dialysis Number of lumens: 2 Central line exchanged over a: No Antiseptic ointment applied to: No Post Assessment: Chest X-Ray, Proper placement Informed consent obtained: Yes Risks/benefits/alt described: Yes Notes Hemodialysis catheter placed to right internal jugular vein. Placement verified on x-ray. Line is okay to use Estimated blood loss: 5 mL Ultrasound guidance CPT code 65930 Date of Service: April 21, 2025 Billing Provider: ERIK VACA NP Common Visit Codes: PROCEDURE ONLY Procedure Codes: 92464-WOZUTN NON-TUNNEL CV CATH ERIK VACA NP April 21, 2025 17:02
--- NOTE | 2025-04-21 17:49 | DVH ---
CHEST RADIOGRAPH Indication: hd placement for plasma pharesis Technique: Single frontal view of the chest was obtained COMPARISON: XY CHEST PORTABLE on DOS: 04/16/25, XY CHEST PORTABLE on DOS: 04/09/25 FINDINGS: Lines and Tubes: Right central venous catheter in satisfactory position. Lungs: Congestion. Pleura: No effusion. No pneumothorax. Cardiomediastinal contours: Unremarkable Bones: Unremarkable IMPRESSION: Right central venous catheter in satisfactory position.
--- NOTE | 2025-04-21 22:34 | DVHDS2 ---
Discharge Summary Date of Admission April 16, 2025 at 19:34 Date of Discharge: April 21, 2025 Labs/Diagnostic Data: Laboratory Results Test 04/21/25 16:30 04/21/25 06:55 04/20/25 06:51 04/19/25 19:52 Miscellaneous Referred Test (Refrg) Sent to [facility] White Blood Count 6.0 10^3/uL (4.4-10.8) Red Blood Count 2.08 10^6/uL (4.0-5.20) Hemoglobin 7.0 g/dL (12.2-16.2) Hematocrit 20.9 % (36.0-46.0) Mean Corpuscular Volume 100.3 fL (80.0-100.0) Mean Corpuscular Hemoglobin 33.5 pg (28.0-32.0) Mean Corpuscular Hemoglobin Concent 33.4 g/dL (32.0-36.0) Red Cell Distribution Width 18.1 % (11.8-14.3) Platelet Count 69 10^3/uL (140-450) Mean Platelet Volume 8.2 fL (6.9-10.8) Neutrophils (%) (Auto) % (37.0-80.0) Lymphocytes (%) (Auto) % (10.0-50.0) Monocytes (%) (Auto) % (0.0-12.0) Basophils (%) (Auto) % (0.0-2.0) Neutrophils # (Auto) 10 ^3/uL (1.6-8.6) Lymphocytes # (Auto) 10 ^3/uL (0.4-5.4) Monocytes # (Auto) 10 ^3/uL (0-1.3) Differential Total Cells Counted 100.0 (100) Neutrophils % (Manual) 72 (37.0-80.0) Band Neutrophils % (Manual) 5 Lymphocytes % (Manual) 17 (10.0-50.0) Monocytes % (Manual) 5 (0-12) Eosinophils % (Manual) 1 (0-7) Basophils % (Manual) 0 (0.0-2.0) Metamyelocytes % (manual) 0 Myelocytes % (Manual) 0 Promyelocytes % (Manual) 0 Blast Cells % (Manual) 0 Nucleated Red Blood Cells 3.0 % Reactive Lymphocytes 0 Platelet Estimate Decreased Poikilocytosis (manual) Slight Anisocytosis (manual) Slight Macrocytosis Slight Tear Drop Cells Few Fibrinogen 266 mg/dL (177-375) Sodium Level 134 mmol/L (136-145) Potassium Level 3.9 mmol/L (3.5-5.1) Chloride Level 103 mmol/L (98-107) Carbon Dioxide Level 16 mmol/L (20-31) Anion Gap 15 (5-15) Blood Urea Nitrogen 71 mg/dL (9-23) Creatinine 7.33 mg/dL (0.550-1.02) Glomerular Filtration Rate Calc 7 mL/min (>90) BUN/Creatinine Ratio 9.7 (10.0-20.0) Serum Glucose 133 mg/dL (74-106) Calcium Level 8.8 mg/dL (8.7-10.4) Eosinophils (%) (Auto) 0.0 % (0.0-7.0) Eosinophils # (Auto) 0 10 ^3/uL (0-0.8) Basophils # (Auto) 0 10 ^3/uL (0-0.2) Lactate Dehydrogenase 628 U/L (120-246) Stool Occult Blood Positive (Negative) Stool Occult Blood Sample #3 (Negative) Test 04/19/25 13:43 04/19/25 05:24 04/18/25 10:34 04/18/25 09:30 Haptoglobin <10 mg/dL (33-278) Schistocytes Few Erythrocyte Sedimentation Rate 25 mm/hr (0-20) Anti-Nuclear Antibody Screen Positive (Negative) Cytoplasmic ANCA (c-ANCA) Antibody <1:20 titer (Neg:<1:20) Anti-Proteinase 3 (c-ANCA) <0.2 units (0.0-0.9) Atypical p-ANCA <1:20 titer (Neg:<1:20) Perinuclear ANCA (p-ANCA) Antibody <1:20 titer (Neg:<1:20) Myeloperoxidase Antibody <0.2 units (0.0-0.9) Complement C3 97 mg/dL (82-167) Complement C4 26 mg/dL (12-38) Urine Creatinine 39.51 mg/dL (30.0-125.0) Urine Sodium 72 mmol/L (40-220) Urine Total Protein 52.6 mg/dL (1-14) Test 04/18/25 08:29 04/18/25 05:15 04/17/25 06:38 04/17/25 05:24 Cortisol AM Sample 37.06 ug/dL (5.27-22.45) [place] Cells Few Hemoglobin A1c < 5.7 % A1C (<5.7) Uric Acid 7.0 mg/dL (3.1-7.8) Phosphorus Level 5.9 mg/dL (2.4-5.1) Iron Level 57 ug/dL (50-170) Total Iron Binding Capacity 251 ug/dL (250-425) Percent Iron Saturation 22.7 % (15-50) Total Bilirubin 0.2 mg/dL (0.2-1.0) Direct Bilirubin < 0.1 mg/dL (<0.3) Aspartate Amino Transferase (AST) 25 U/L (13-40) Alanine Aminotransferase (ALT) 16 U/L (7-40) Alkaline Phosphatase 39 U/L (46-116) Creatine Kinase 37 U/L (34-145) Myoglobin 69 ng/mL (25-58) Total Protein 4.5 g/dL (5.7-8.2) Albumin 2.8 g/dL (3.2-4.8) Thyroid Stimulating Hormone (TSH) 2.82 uIU/mL (0.55-4.78) Blood Gas Specimen Type Arterial Blood Gas Sample Site Right radial Blood Gas Patient Temperature 37.0 Arterial Blood Date Drawn [id number] Arterial Blood pH 7.299 (7.350-7.450) Arterial Blood Partial Pressure CO2 27.0 mmHg (32.0-45.0) Arterial Blood Partial Pressure O2 87.7 mmHg (83.0-108.0) Arterial Blood HCO3 13.0 mmol/L (21.0-28.0) Arterial Blood Oxygen Saturation 95.5 % (94.0-98.0) Arterial Blood Base Excess -11.9 mmol/L (-2.0-3.0) Arterial Blood Oxyhemoglobin 93.0 % (94.0-98.0) Arterial Blood Carboxyhemoglobin 1.8 % (0.5-1.5) Arterial Blood Methemoglobin 0.8 % (0.0-1.5) Malachi Test Yes Blood Gas Total Hemoglobin 12.00 g/dL (12.0-16.0) Blood Gas Modality Room air FiO2 % 21.0 Urine Color Colorless (Yellow) Urine Clarity Turbid (Clear) Urine pH 5.5 (5.0-9.0) Urine Specific [place] 1.013 (1.001-1.035) Urine Protein 1+ (Negative) Urine Ketones Negative (Negative) Urine Blood 2+ /uL (Negative) Urine Nitrite Negative (Negative) Urine Bilirubin Negative (Negative) Urine Urobilinogen Normal mg/dL (Negative) Urine Leukocyte Esterase 1+ /uL (Negative) Urine RBC 4 /hpf (0 - 4) Urine Microscopic WBC 9 /HPF (0-5) Urine Squamous Epithelial Cells Few /hpf (<5) Urine Bacteria Few /hpf (None Seen) Urine Glucose Normal mg/dL (Normal) Urine Test Negative (Negative) Test 04/16/25 21:04 04/16/25 16:54 Troponin I High Sensitivity 28 ng/L (</=34) Prothrombin Time 9.9 sec (9.3-11.8) Prothrombin Time INR 0.93 (0.9-1.15) Activated Partial Thromboplast Time 26.8 SEC (24.5-34.5) Other Laboratory Tests 04/21/25 06:55 Brief Hx & Hospital Course: Patient is a 34-year-old female with past medical history of recently diagnosed SLE, hypertension who initially presented with complaints of chest pain and shortness of breath the past week. Patient presented with systolic blood pressure in the 200s and tachycardic to the 120s. Patient was started on Cardene drip. Laboratory findings were notable for leukocytosis of 18 with hemoglobin of 13.3 and BUN/creatinine of 82/5.06. Patient was seen 5 days prior with creatinine of approximately 3. Approximately 1 month prior, the patient was noted to have a normal creatinine of 1. Patient had noted that she was taking an increased amount of NSAIDs due to her pain. This was recorded approximately 1 week prior to admission when her creatinine was 3 and since then patient had stopped taking NSAIDs for pain. Patient's hospital course became greatly complicated as her hemoglobin continued to drop without any gross signs of bleeding. Patient globin dropped to 7 requiring transfusion. She also was noted to be thrombocytopenic with platelets 47 on admission. She received 2 units of platelets during her hospitalization. Her creatinine continued to rise to approximately 7.33. There was concern for lupus nephritis. Patient was started on pulse dose steroids of 500 mg IV daily. Renal biopsy was still pending and could not be completed due to patient's hypertension per IR. Rheumatology service was unavailable for inpatient consultation. Hematologyoncology was also noted to be unavailable. Complement C3 was noted to be 97. Complement C4 was noted to be 26. Both are noted to be elevated. JENNIFER was positive. C ANCA, antiproteinase 3, atypical p-ANCA, p-ANCA antibody and myeloperoxidase antibody were all done which showed low titers. Despite these markers, there is still high suspicion for underlying lupus flare and even lupus nephritis.Workup was done for MAHA. Direct Chente was negative. Haptoglobin was low. LDH was elevated. Peripheral smear showed few schistocytes. Nephrology was consulted and patient was given IV fluids and Lasix and was maintaining urine output. Given patient's continued decline, and laboratory findings, there was a concern for TTP. Patient was subsequently started on plasmapheresis urgently. In discussion with the patient's outpatient cognos, it was recommended that patient be transferred to higher level of care given complicated hospital course and continued decline with need for Rituxan induction and monitoring. At the time of this writing, patient has received first dose of plasmapheresis pending transfer to higher level of care for rheumatology and hematology/oncology consultation/care. Patient remains on telemetry floor with vitals within stable condition. Of additional note, patient was evaluated by cardiology and TTE was done which revealed LVEF of 75% with mild LVH and no severe valve abnormalities noted. Patient was also eval by GI due to concern for GI bleed given complaints of bloody diarrhea however patient not have any recurrence of this hemorrhagic diarrhea. C. difficile was negative. Stool studies were negative for any abnormalities. Patient still pending renal biopsy at this time. Plan to transfer to higher level of care once accepted at facility with bed and services. Condition at Discharge: Critical Final Diagnosis/Problems List SLE Flare Secondary Diagnosis: TTP Acute Renal Failure likely due to Lupus Nephritis Hypertensive Emergency Discharge Disposition: Still a Patient Discharge Statement: "Patient was advised to return to the ER or call 911 if any headaches, dizziness, shortness of breath, chest pain, abdominal pain, bleeding, fevers, or worsening of medical condition. Patient was counseled about treatment plan, medications, possible side effects, patientverbalized understanding. All questions were answered to the best of my ability. This discharge took greater then 30 minutes in planning, reviewing documentation, counseling the patient, and discussing with other team members." ASSESSMENT ASSESSMENT Assessment TEA GOMEZ DO April 21, 2025 22:34
[2025-04-22 01:00] VITALS: BP 168/107; PULSE 77; RESP 19; TEMP 97.9; O2SAT 98
[2025-04-22 01:13] VITALS: BP 147/87
[2025-04-22 04:13] VITALS: BP 140/89; PULSE 87; RESP 19
[2025-04-22] MEDS ORDERED: SODIUM CHL 0.9% 1000 ML BAG XX ONE (07:00)
[2025-04-22] MEDS ORDERED: HYDROCORTISONE SOD SUCC 100 MG/2ML INJ VIAL IV SCH (10:00)
[2025-04-22] MEDS ORDERED: SODIUM CHL 0.9% IV SCH (10:00)
[2025-04-22] MEDS ORDERED: CALCIUM GLUC IV SCH (10:00)
[2025-04-22] MEDS ORDERED: diphenhdrAMINE HCL 50 MG/1 ML VL IV SCH (10:00)
== END 2025-04-22 04:19 | disposition short-term general hospital (02) | DRG 346 ==
LOC: EDBD 16:45 → ER 16:51 → OVERFLOW 19:34 → WEST WING 04-18 15:34 → TELE-WESTW 04-21 20:37
PROVIDERS: ADMIT Internal Medicine; ATTEND Internal Medicine
PROC: 30233R1 Transfusion of Nonautologous Platelets into Peripheral Vein, Percutaneous Approach (ICD-10-PCS; 2025-04-19)
PROC: 30233K1 Transfusion of Nonautologous Frozen Plasma into Peripheral Vein, Percutaneous Approach (ICD-10-PCS; principal; 2025-04-21)
PROC: 30233N1 Transfusion of Nonautologous Red Blood Cells into Peripheral Vein, Percutaneous Approach (ICD-10-PCS; 2025-04-21)
PROC: 05HF33Z Insertion of Infusion Device into Left Cephalic Vein, Percutaneous Approach (ICD-10-PCS; 2025-04-21)
PROC: B54NZZA Ultrasonography of Left Upper Extremity Veins, Guidance (ICD-10-PCS; 2025-04-21)
PROC: 05HM33Z Insertion of Infusion Device into Right Internal Jugular Vein, Percutaneous Approach (ICD-10-PCS; 2025-04-21)
PROC: B543ZZA Ultrasonography of Right Jugular Veins, Guidance (ICD-10-PCS; 2025-04-21)
DX: M32.9 Systemic lupus erythematosus, unspecified (principal); N17.1 Acute kidney failure with acute cortical necrosis; M31.19 Other thrombotic microangiopathy; I50.33 Acute on chronic diastolic (congestive) heart failure; E87.20 Acidosis, unspecified; M32.14 Glomerular disease in systemic lupus erythematosus; I13.0 Hypertensive heart and chronic kidney disease with heart failure and stage 1 through stage 4 chronic kidney disease, or unspecified chronic kidney disease; I16.1 Hypertensive emergency; D64.9 Anemia, unspecified; E87.6 Hypokalemia; N18.9 Chronic kidney disease, unspecified; R31.29 Other microscopic hematuria; Z79.60 Long term (current) use of unspecified immunomodulators and immunosuppressants
CPT/HCPCS: 36415; 36556; 36600; 71045; 74176; 76775; 80048; 80053; 80076; 81001; 81025; 82270; 82533; 82550; 82570; 82805; 83010; 83036; 83520; 83540; 83550; 83615; 83835; 83874; 84100; 84156; 84300; 84443; 84484; 84550; 85007; 85025; 85027; 85384; 85610; 85652; 85730; 86038; 86160; 86225; 86256; 86850; 86880; 86900; 86901; 86920; 87040; 87045; 87086; 87427; 87493; 93005; 93306; 96361; 96374; 96375; 99291; G0378; J2405; J2470; J2543

== ENCOUNTER 2025-05-24 09:38 | Emergency (ER) | payer OTHER ==
[~2025-05-24] VITALS: Ht 154.9 cm; Wt 63.5 kg
[2025-05-24 10:00] VITALS: PULSE 82; RESP 19; O2SAT 99
[2025-05-24] MEDS: ONDANSETRON HCL 4 MG/2 ML VIAL IV ONE (10:00)
[2025-05-24 10:27] VITALS: TEMP 98.8
--- NOTE | 2025-05-24 10:33 | ED.PDOC ---
GI ASSESSMENT HPI Comments HPI: 34 y/o F, BIBA, with PMhx of lupus, seizures, and kidney injury presents to the ED for CC of nausea, vomiting, and diarrhea. EMS reports, patient is coming from home where she complains of nausea, vomiting, and diarrhea x1day. Patient reports, associated symptoms of chest pain/discomfort with inspiration. Patient relays, that she receives dialysis on M,W,F and is complaint however, was unable to receive treatment yesterday (05/23/25) d/t symptoms. Patient endorses, being seen in [place] for SS and and being departed with no significant findings. Patient denies shortness of breath, fever, cough, chills, black stools, fatigue, or weakness. No other symptoms or modifying factors present at this time. Initial Vitals BP: HR: RR: O2: Temp: Past Medical History: LUPUS, SEIZURES, KIDNEY INJURY Past Surgical History: DENIES ANY Social History: Denies ETOH, smoking, and drug use. Medications: Allergies: NKA HPI: Poor Historian. Past Medical History: Past Surgical History: REVIEW OF SYSTEMS: CONSTITUTIONAL: Denies acute: fever, diaphoresis, chills, HEAD: Denies acute: headache, photophobia Eyes: Denies acute: Double vision, vision loss, eye pain, eye discharge. EARS: Denies acute: tinnitus, hearing loss, ear discharge, ear pain, THROAT: Denies acute: sore throat, swelling, difficulty swallowing , pain with swallowing, change in voice. NECK: Denies acute: neck pain, neck swelling, stiff neck. HEART: Denies acute : palpitations, LUNGS: Denies acute: SOB, wheezing, cough, hemoptysis ABDOMEN: Denies acute: melena , hematemesis, hematochezia SKIN: Denies acute: rash, redness, lesions, itchiness. EXTREMITIES: Denies acute: calf pain, numbness, tingling, weakness, denies pain in extremity. Denies acute: Low back pain. Neuro: Denies acute: focal neurological deficit, motor or sensory focal neurological deficit, tremors, seizure like activity, confusion, dizziness, change in mental status, loss of bowel or bladder function, cauda equina like symptoms. : Denies acute: dysuria, hematuria, flank pain, increase in urinary frequency. PSYCH: Denies acute: hallucination, suicidal ideation, homicidal ideation. FEMALE: Denies acute: abnormal vaginal bleeding, foul odor, unusual discharge. PHYSICAL EXAM: General: ----mild----acute distress, awake and alert. Head: normocephalic, atraumatic. Neck: supple, trachea is midline, no swelling. Throat: Normal phonation. Eyes:, no erythema, no purulent discharge, no proptosis, no icterus. Heart: regular rate, regular rhythm, no significant murmur appreciated. Lungs: no apparent respiratory distress, Able to speak in full sentences. No wheezing, no rhonchi, no crackles. No stridors Clear to auscultation bilaterally. Abdomen: Nonspecific generalized mild tender to palpation, non distended, soft, no guarding, no rebound, + bowel sounds. Neuro: Awake, Alert, oriented to name, self, situation, follows commands GCS=15. Speech is normal. Skin: no petechia, no purpura, no cyanosis, non-pale, not jaundice. Lower extremities: --trace - Pitting edema no deformity, no focal swelling, no calf TTP. Makes eye contact. moves all four extremities. Face: no apparent facial droop. ED COURSE: DISCLAIMER: This medical document was created using an electronic medical record system with voice recognition software and computerized dictation system. Although this document has been carefully reviewed, there might still be some phonetic and typographical errors. Occasional wrong-word or "sound-alike" substitutions may have occurred due to the inherent limitations of voice recognition software. These areas are purely typographical due to imperfections of the software programs and do not reflect any compromise in the patient's medical care. Please read the chart carefully and recognize, using context, where these substitutions have occurred. Chief Complaint: Nausea/Vomiting Time Seen by MD: 10:00 Primary Care Provider: DEANA Reviewed Notes: Nurses Notes, [employer] Notes, Medications, Allergies Allergies: Coded Allergies: NO KNOWN ALLERGIES (Unverified , 11/24/20) Home Meds Active Scripts Metronidazole (Flagyl) 500 Mg Tab, 1 TAB PO TID, #30 TAB Prov:BEBETO STRANGE MD 05/24/25 Levofloxacin Hemihydrate (LEVAQUIN 500 MG) 500 Mg Tab, 1 TAB PO DAILY, #10 TAB Prov:BEBETO STRANGE MD 05/24/25 Bumetanide (Bumex) 0.5 Mg Tab, 0.5 MG PO DAILY for 5 Days, #5 TAB 0 Refills Prov:TEA GOMEZ DO 04/09/25 Amoxicillin & Pot Clavulanate (AUGMENTIN TABLET) 875 Mg Tb, 875 MG PO BID for 5 Days, #10 TAB 0 Refills Prov:TEA GOMEZ DO 04/09/25 Cephalexin Monohydrate (Cephalexin) 500 Mg Tab, 1 TAB PO QID, #40 TAB Prov:MARIE HOOKS MD 12/01/24 Ibuprofen Micronized (MOTRIN TABLET) 600 Mg Tb, 600 MG PO TID PRN, #40 TAB *Black box warning-NSAIDS can increase risk of ND & hypertension, GI irritation, ulceration, bleed, perferation. Do not use post cardiac surgery. Use short duration/lowest effective dose. Prov:MARIE HOOKS MD 12/01/24 Fluconazole (Diflucan) 150 Mg Tab, 1 TAB PO ONCE for 14 Days, #2 TAB Take once weekly for two weeks Prov:CANDY FRANCIS 07/24/24 Clotrimazole (Topical) (EQ ANTIFUNGAL) 1 % Cre, 1 % EX BID for 28 Days, #1 CRE Prov:CANDY FRANCIS 07/24/24 Ibuprofen Micronized (Ibuprofen) 600 Mg Tab, 600 MG PO Q8HPRN PRN, #20 TAB Prov:CANDY FRANCIS 07/24/24 Methocarbamol (Methocarbamol) 500 Mg Tab, 500 MG PO BID, #20 TAB Prov:PATRICIA CAIN 02/10/24 Ibuprofen (Ibuprofen) 800 Mg Tab, 1 TAB PO TID, #30 TAB Prov:PATRICIA CAIN 02/10/24 Ibuprofen (Ibuprofen) 800 Mg Tab, 1 TAB PO TID PRN for 7 Days, #21 TAB 1 Refill Prov:JESSY VELEZP 09/25/23 Methocarbamol (Methocarbamol) 500 Mg Tab, 500 MG PO BID, #20 TAB Prov:PATRICIA CAIN 09/24/22 Ibuprofen (Ibuprofen) 600 Mg Tab, 600 MG PO TID, #30 TAB Prov:PATRICIA CAIN PA 09/24/22 Reported Medications Diphenoxylate W/ Atropine (Lomotil) 2.5 Mg Tab, 2.5 TAB PO TID, #30 TAB 05/24/25 Diphenoxylate W/ Atropine (Lomotil) 2.5 Mg Tab, 1 TAB PO TID, #30 TAB 05/24/25 Heparin Sodium (Porcine) ((None)) 10 Units/Ml Ij, 10 UNITS IV 10/21/13 Information Source: Patient, Emergency Med Personnel Mode of Arrival: EMS Timing: Days Duration: Since onset Prehospital treatment: None Quality: None Vomitus: Watery Stool: Watery Severity: Moderate Recent: None Recent Hx of: None Pain Location: None Modifying Factors: Nothing Associated sign and symptoms: Nausea, Vomiting, Diarrhea Was a procedure done? Was a procedure done?: No GI differential Dx Differential Diagnosis: Constipation, Diverticular disease, Gastritis/PUD, Gastroenteritis, Electrolyte Imbalance, Food Poisoning, Bacterial, Viral, Other (lupus flare up) X-Ray, Labs, Meds, VS Vital Signs Date Time Temp Pulse Resp B/P (MAP) Pulse Ox O2 Delivery O2 Flow Rate FiO2 05/24/25 18:45 66 19 166/100 (122) 99 05/24/25 17:08 186/115 05/24/25 16:30 80 19 186/115 (138) 99 05/24/25 14:45 88 19 150/85 (106) 99 05/24/25 12:00 80 19 136/78 (97) 99 05/24/25 10:27 98.8 87 14 121/84 (96) 100 98.8 05/24/25 10:00 82 19 99 Room Air* 0 21 05/24/25 10:00 98.7 82 19 124/85 (98) 99 98.7 05/24/25 09:40 87 Lab Test 05/24/25 13:39 05/24/25 12:36 05/24/25 11:48 05/24/25 10:36 Range/Units Troponin I High Sensitivity 16 17 18 </=34 ng/L POC Glucose 73 70-106 mg/dl White Blood Count 8.5 4.4-10.8 10^3/uL Red Blood Count 2.89 L 4.0-5.20 10^6/uL Hemoglobin 9.1 L 12.2-16.2 g/dL Hematocrit 26.6 L 36.0-46.0 % Mean Corpuscular Volume 92.3 80.0-100.0 fL Mean Corpuscular Hemoglobin 31.5 28.0-32.0 pg Mean Corpuscular Hemoglobin Concent 34.1 32.0-36.0 g/dL Red Cell Distribution Width 14.3 11.8-14.3 % Platelet Count 70 L 140-450 10^3/uL Mean Platelet Volume 7.5 6.9-10.8 fL Neutrophils (%) (Auto) 89.0 H 37.0-80.0 % Lymphocytes (%) (Auto) 5.3 L 10.0-50.0 % Monocytes (%) (Auto) 5.6 0.0-12.0 % Eosinophils (%) (Auto) 0.0 0.0-7.0 % Basophils (%) (Auto) 0.1 0.0-2.0 % Neutrophils # (Auto) 7.6 1.6-8.6 10 ^3/uL Lymphocytes # (Auto) 0.5 0.4-5.4 10 ^3/uL Monocytes # (Auto) 0.5 0-1.3 10 ^3/uL Eosinophils # (Auto) 0 0-0.8 10 ^3/uL Basophils # (Auto) 0 0-0.2 10 ^3/uL Nucleated Red Blood Cells 0.2 % Sodium Level 136 136-145 mmol/L Potassium Level 2.3 *L 3.5-5.1 mmol/L Chloride Level 97 L 98-107 mmol/L Carbon Dioxide Level 24 20-31 mmol/L Anion Gap 15 5-15 Blood Urea Nitrogen 34 H 9-23 mg/dL Creatinine 7.83 H 0.550-1.02 mg/dL Glomerular Filtration Rate Calc 6 >90 mL/min BUN/Creatinine Ratio 4.3 L 10.0-20.0 Serum Glucose 94 74-106 mg/dL Lactic Acid Level 1.6 0.4-2.0 mmol/L Calcium Level 8.9 8.7-10.4 mg/dL Total Bilirubin < 0.2 L 0.2-1.0 mg/dL Aspartate Amino Transferase (AST) 24 13-40 U/L Alanine Aminotransferase (ALT) 14 7-40 U/L Alkaline Phosphatase 70 46-116 U/L Total Protein 6.2 5.7-8.2 g/dL Albumin 4.1 3.2-4.8 g/dL Lipase 200 H 12-53 U/L [place] [id number] Ph: [phone] DIAGNOSTIC IMAGING Diagnostic Imaging Report : [id number] Signed PATIENT: BECK FIELD ACCT: [id number] UNIT: [id number] : 1990 LOC: ER ROOM / BED: / AGE / SEX: 34 / F ADM STATUS: REG ER SERVICE 0955 ORDERING PHYSICIAN: AKIKO SPICER DO PROCEDURE(s): CXRP - CHEST PORTABLE REASON: CP ORDER NUMBER(s): [id number], ACCESSION NUMBER(s): [id number] CHEST RADIOGRAPH Indication: CP Technique: Single frontal view of the chest was obtained COMPARISON: XY CHEST XRAY 1 VIEW on DOS: 04/21/25, XY CHEST PORTABLE on DOS: 04/16/25, XY CHEST PORTABLE on DOS: 04/09/25 FINDINGS: Lines and Tubes: Tunneled right central venous catheter in satisfactory position. Lungs: Clear Pleura: No effusion. No pneumothorax. Cardiomediastinal contours: Cardiomegaly Bones: Unremarkable IMPRESSION: No acute disease. ATED BY: JASON CABRERA MD DICTATED DATE/TIME: 05/24/251034 SIGNED BY: JASON CABRERA MD SIGNED DATE/TIME: 05/24/25 103 CC: [place] [id number] Ph: [phone] DIAGNOSTIC IMAGING Diagnostic Imaging Report : [id number] Signed PATIENT: BECK FIELD ACCT: [id number] UNIT: [id number] : 1990 LOC: ER ROOM / BED: / AGE / SEX: 34 / F ADM STATUS: REG ER SERVICE 0955 ORDERING PHYSICIAN: AKIKO SPICER DO PROCEDURE(s): ABPL - CT AB PEL WO CON-NO ORAL OR IV REASON: ABD PAIN N/V/D ORDER NUMBER(s): [id number], ACCESSION NUMBER(s): [id number] CT CT AB PEL WO CON-NO ORAL OR IV INDICATION: ABD PAIN N/V/D EXAM DATE: 05/24/2025 10:07 AM COMPARISON: CT CT AB PEL WO CON-NO ORAL OR IV on DOS: 04/18/25, CT CT AB PEL WO CON-NO ORAL OR IV on DOS: 12/01/24, CT ABD PELVIS WO CONTRAST on DOS: 11/24/20 RADIATION DOSE: CTDIvol: 5.28 mGy, DLP: 288.46 mGy*cm PROCEDURE: Helical CT images were obtained of the abdomen and pelvis without IV contrast Sagittal and coronal reconstructions are provided. ORAL CONTRAST: None. ADDITIONAL IMAGES / REFORMATS: None All CT scans at this medical facility are performed using dose modulation techniques as appropriate to a performed exam including the following: Automated exposure control was utilized; adjustment of the MA and/or KV according to patient size; and use of iterative reconstruction technique. FINDINGS: LUNG BASE: Normal LIVER: Normal. Trace perihepatic fluid. GALLBLADDER AND BILIARY TREE: No calcified gallstones. Normal caliber wall. No intra- or extrahepatic biliary ductal dilation. PANCREAS: Normal. SPLEEN: Normal. BOWEL: Mildly thickened loops of small bowel without dilation could be seen with enteritis. Appendix appears normal. ADRENALS: Normal. KIDNEYS AND URETER: Small left kidney cystic lesion. BLADDER: Normal. REPRODUCTIVE ORGANS: Similar left ovary cyst, right ovary cyst not well visualized. LYMPH NODES:No lymphadenopathy. PERITONEUM: No ascites or free air. No other fluid collection. Trace pelvic fluid is seen. VESSELS: Scattered atherosclerotic calcifications are noted. RETROPERITONEUM: Normal. ABDOMINAL WALL: Normal. BONES: Scattered osseous degenerative changes are noted. IMPRESSION: Mildly thickened loops of small bowel without dilation could be seen with enteritis and appears similar to prior. Mild colitis is also a consideration. Similar small volume pelvic fluid with similar left ovarian cyst. ATED BY: ELVIN VARELA MD DICTATED DATE/TIME: 05/24/25 1046 SIGNED BY: ELVIN VARELA MD SIGNED DATE/TIME: 05/24/25 1046 CC: Time of 1ST Reevaluation: 10:30 Reevaluation 1ST: Unchanged Time of 2ND Reevaluation: 13:53 (The case was discussed with the admitting team (HPI, physical exam, labs and diagnostic tests that were available at the time of disposition, ED course, treatment plan) on the phone. They agreed to admit the patient to their service and assume care of this patient from this point forward. --- Crissy) Reevaluation 2ND: Unchanged Patient Education/Counseling: Diagnosis, Treatment Family Education/Counseling: No Family Present Comments Patient presented with the above HPI.---cardiac and GI symptoms--workup was initiated. patient was found with the above mentioned diagnosis. the following medications were ordered: please refer to order lists of meds and tests obtained by myself Dr. Spicer. Patient ED course and VS have been stabilized. Patient has been reassessed in the ED and remained in a stable condition. Pertinent incidental findings were discussed with the patient and/or family. Patient/family voices understanding and is agreeable with plan. Patient has been observed in the ED adequate length of time to insure improvement/stability. Escalation of care considered: Consideration of escalation to observation or admission Patient was ADMITTED to the medicine team for further evaluation and treatment of their presentation. All the reports of any imaging studies that were ordered by myself were reviewed by myself. Departure 1 Departure Time of Disposition: 10:45 Impression: Primary Impression: Acute chest pain Additional Impressions: End stage renal disease on dialysis Missed dialysis Nausea vomiting and diarrhea Thrombocytopenia Acute pancreatitis Hypokalemia Colitis Disposition: ADMITTED INPATIENT Admit to: Tele Condition: Guarded e-Prescriptions Metronidazole (Flagyl) 500 Mg Tab 1 TAB PO TID, #30 TAB Prov: BEBETO STRANGE MD 05/24/25 Levofloxacin Hemihydrate (LEVAQUIN 500 MG) 500 Mg Tab 1 TAB PO DAILY, #10 TAB Prov: BEBETO STRANGE MD 05/24/25 Discharged With: Self Critical Care Note Critical Care Time?: Yes (45 min-critical care time only) Heart Score Heart Score: Heart Score Response (Comments) Value History N/A 0 EKG N/A 0 Age N/A 0 Risk Factors N/A 0 Troponin N/A 0 Total 0 I personally scribed for AKIKO SPICER DO ([email or web address]) on 05/24/25 at 10:33. Electronically submitted by Varsha Flannery ([email or web address]). I personally scribed for AKIKO SPICER DO ([email or web address]) on 05/24/25 at 12:07. Electronically submitted by Varsha Flannery ([email or web address]). I personally scribed for AKIKO SPICER DO ([email or web address]) on 05/24/25 at 12:10. Electronically submitted by Varsha Flannery ([email or web address]). AKIKO SPICER DO May 24, 2025 10:33
--- NOTE | 2025-05-24 10:38 | DVH ---
CHEST RADIOGRAPH Indication: CP Technique: Single frontal view of the chest was obtained COMPARISON: XY CHEST XRAY 1 VIEW on DOS: 04/21/25, XY CHEST PORTABLE on DOS: 04/16/25, XY CHEST PORTABL E on DOS: 04/09/25 FINDINGS: Lines and Tubes: Tunneled right central venous catheter in satisfactory position. Lungs: Clear Pleura: No effusion. No pneumothorax. Cardiomediastinal contours: Cardiomegaly Bones: Unremarkable IMPRESSION: No acute disease.
--- NOTE | 2025-05-24 10:48 | DVH ---
CT CT AB PEL WO CON-NO ORAL OR IV INDICATION: ABD PAIN N/V/D EXAM DATE: 05/24/2025 10:07 AM COMPARISON: CT CT AB PEL WO CON-NO ORAL OR IV on DOS: 04/18/25, CT CT AB PEL WO CON-NO ORAL OR IV on D OS: 12/01/24, CT ABD PELVIS WO CONTRAST on DOS: 11/24/20 RADIATION DOSE: CTDIvol: 5.28 mGy, DLP: 288.46 mGy*cm PROCEDURE: Helical CT images were obtained of the abdomen and pelvis without IV contrast Sagittal and coronal reconstructions are provided. ORAL CONTRAST: None. ADDITIONAL IMAGES / REFORMATS: None All C T scans at this medical facility are performed using dose modulation techniques as appropriate to a p erformed exam including the following: Automated exposure control was utilized; adjustment of the MA and/or KV according to patient size; and use of iterative reconstruction technique. FINDINGS: LUNG BASE: Normal LIVER: Normal. Trace perihepatic fluid. GALLBLADDER AND BILIARY TREE: No calcified gallstones. Normal caliber wall. No intra- or extrahepatic biliary ductal dilation. PANCREAS: Normal. SPLEEN: Normal. BOWEL: Mildly thickened loops of small bowel without dilation could be seen with enteritis. Appendix appears normal. ADRENALS: Normal. KIDNEYS AND URETER: Small left kidney cystic lesion. BLADDER: Normal. REPRODUCTIVE ORGANS: Similar left ovary cyst, right ovary cyst not well visualized. LYMPH NODES:No lymphadenopathy. PERITONEUM: No ascites or free air. No other fluid collection. Trace pelvic fluid is seen. VESSELS: Scattered atherosclerotic calcifications are noted. RETROPERITONEUM: Normal. ABDOMINAL WALL: Normal. BONES: Scattered osseous degenerative changes are noted. IMPRESSION: Mildly thickened loops of small bowel without dilation could be seen with enteritis and appears simil ar to prior. Mild colitis is also a consideration. Similar small volume pelvic fluid with similar left ovarian cyst.
[2025-05-24 10:59] LABS: Hematocrit 26.6 % (36.0-46.0); Hemoglobin 9.1 g/dL (12.2-16.2); Mean Corpuscular Hemoglobin 31.5 pg (28.0-32.0); Mean Corpuscular Volume 92.3 fL (80.0-100.0); Nucleated Red Blood Cells % 0.2 %
[2025-05-24 11:42] LABS: Alanine Aminotransferase 14 U/L (7-40); Alkaline Phosphatase 70 U/L (46-116); Anion Gap 15 (5-15); Calcium 8.9 mg/dL (8.7-10.4); Carbon Dioxide 24 mmol/L (20-31); Glucose 94 mg/dL (74-106); Sodium 136 mmol/L (136-145); Total Protein 6.2 g/dL (5.7-8.2)
[2025-05-24 11:43] LABS: Albumin 4.1 g/dL (3.2-4.8); BUN/Creatinine Ratio 4.3 (10.0-20.0)
[2025-05-24 11:50] LABS: Bilirubin, Total < 0.2 mg/dL (0.2-1.0); Blood Urea Nitrogen 34 mg/dL (9-23); Chloride 97 mmol/L (98-107); Lipase 200 U/L (12-53)
[2025-05-24 11:51] LABS: Potassium 2.3 mmol/L (3.5-5.1)
[2025-05-24] MEDS ORDERED: METR-344 PO (13:56)
[2025-05-24] MEDS ORDERED: LEVO500T91 PO (13:56)
[2025-05-24] MEDS ORDERED: DIPH2.5T73 PO (14:05)
[2025-05-24] MEDS: PIPERACILLIN-TAZO 4.5GM 100 ML IV ONE (14:15)
[2025-05-24] MEDS: DIPHENOXYLATE W/ATROPINE 2.5 MG TAB PO ONE (14:43)
[2025-05-24] MEDS: POTASSIUM CHL 20 Meq TABLET PO ONE (14:44)
[2025-05-24] MEDS: HYDROcodone-ACET 10/325MG TAB PO ONE (17:06)
[2025-05-24 18:45] VITALS: BP 166/100; PULSE 66; RESP 19; O2SAT 99
--- NOTE | 2025-05-28 12:02 | ECG ---
[facility] Test Date: 2025-05-24 Test Time: 09:40:46 Pat Name: BECK FIELD Department: ED Room: Gender: F Supervisor Sandblaster: DR MONTERO: 1990 Requested By: AKIKO SPICER Order Number: [id number] Reading MD: Vinh Escobar Measurements Intervals [place] Rate: 87 P: 80 IA: 146 QRS: 75 QRSD: 103 T: 212 QT: 440 QTc: 530 Interpretive Statements Sinus rhythm Nonspecific T abnormalities, diffuse leads Prolonged QT interval Electronically Signed On 05-31-2025 18:06:43 PDT by Vinh Escobar Please click the below link to view image of tracing.
== END 2025-05-24 18:45 | disposition home or self-care (01) ==
LOC: ER 09:38 → EDBD 09:38 → ER 18:45
DX: N18.6 End stage renal disease (principal); R07.89 Other chest pain; R11.2 Nausea with vomiting, unspecified; R19.7 Diarrhea, unspecified; K85.90 Acute pancreatitis without necrosis or infection, unspecified; D69.6 Thrombocytopenia, unspecified; E87.6 Hypokalemia; Z99.2 Dependence on renal dialysis; Z79.899 Other long term (current) drug therapy
CPT/HCPCS: 36415; 71045; 74176; 80053; 82947; 82962; 83605; 83690; 84484; 85025; 93005; 99291

== ENCOUNTER 2025-05-25 08:59 | Emergency (ER) | payer OTHER ==
[~2025-05-25] VITALS: Ht 152.4 cm; Wt 54.5 kg
[~2025-05-25 08:59] MED LIST changes: +DIPH2.5T73 PO; +LEVO500T91 PO; +METR-344 PO
--- NOTE | 2025-05-25 09:13 | ED.PDOC ---
History of Present Illness HPI Comments 34 year old female with a Hx of CKF, HTN, Lupus, Seizures, and Anemia was BIBA for the c/c of a Tonic Clonic Seizure. Pt states that her Seizure was witnessed by family, and is also currently experiencing Chest discomfort, ABD pain, and Dizziness at this time with no alleviating factors at this time. Pt does note her last Dialysis appointment was this past Wednesday. Pt is noted to have been discharged here from [facility] yesterday. No other associated symptoms, modifiers, recent injuries or sick contacts present at this time. 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, Medications, Allergies Allergies: Coded Allergies: NO KNOWN ALLERGIES (Unverified , 11/24/20) Home Meds Active Scripts Metronidazole (Flagyl) 500 Mg Tab, 1 TAB PO TID, #30 TAB Prov:BEBETO STRANGE MD 05/24/25 Levofloxacin Hemihydrate (LEVAQUIN 500 MG) 500 Mg Tab, 1 TAB PO DAILY, #10 TAB Prov:BEBETO STRANGE MD 05/24/25 Bumetanide (Bumex) 0.5 Mg Tab, 0.5 MG PO DAILY for 5 Days, #5 TAB 0 Refills Prov:TEA GOMEZ DO 04/09/25 Amoxicillin & Pot Clavulanate (AUGMENTIN TABLET) 875 Mg Tb, 875 MG PO BID for 5 Days, #10 TAB 0 Refills Prov:TEA GOMEZ DO 04/09/25 Cephalexin Monohydrate (Cephalexin) 500 Mg Tab, 1 TAB PO QID, #40 TAB Prov:MARIE HOOKS MD 12/01/24 Ibuprofen Micronized (MOTRIN TABLET) 600 Mg Tb, 600 MG PO TID PRN, #40 TAB *Black box warning-NSAIDS can increase risk of ME & hypertension, GI irritation, ulceration, bleed, perferation. Do not use post cardiac surgery. Use short duration/lowest effective dose. Prov:MARIE HOOKS MD 12/01/24 Fluconazole (Diflucan) 150 Mg Tab, 1 TAB PO ONCE for 14 Days, #2 TAB Take once weekly for two weeks Prov:CANDY FRANCIS 07/24/24 Clotrimazole (Topical) (EQ ANTIFUNGAL) 1 % Cre, 1 % EX BID for 28 Days, #1 CRE Prov:CANDY FRANCIS PAC 07/24/24 Ibuprofen Micronized (Ibuprofen) 600 Mg Tab, 600 MG PO Q8HPRN PRN, #20 TAB Prov:CANDY FRANCIS PAC 07/24/24 Methocarbamol (Methocarbamol) 500 Mg Tab, 500 MG PO BID, #20 TAB Prov:PATRICIA CAIN PA 02/10/24 Ibuprofen (Ibuprofen) 800 Mg Tab, 1 TAB PO TID, #30 TAB Prov:PATRICIA CAIN PA 02/10/24 Ibuprofen (Ibuprofen) 800 Mg Tab, 1 TAB PO TID PRN for 7 Days, #21 TAB 1 Refill Prov:JESSY VELEZ MANAGER [employer] 09/25/23 Methocarbamol (Methocarbamol) 500 Mg Tab, 500 MG PO BID, #20 TAB Prov:PATRICIA CAIN PA 09/24/22 Ibuprofen (Ibuprofen) 600 Mg Tab, 600 MG PO TID, #30 TAB Prov:PATRICIA CAIN PA 09/24/22 Reported Medications Diphenoxylate W/ Atropine (Lomotil) 2.5 Mg Tab, 2.5 TAB PO TID, #30 TAB 25 Diphenoxylate W/ Atropine (Lomotil) 2.5 Mg Tab, 1 TAB PO TID, #30 TAB 25 Heparin Sodium (Porcine) ((None)) 10 Units/Ml Ij, 10 UNITS IV 10/21/13 Information Source: Patient, Emergency Med Personnel Mode of Arrival: EMS Severity: Moderate Timing: Days Duration: Since onset, Days Prehospital treatment: None Past Medical History PAST MEDICAL HISTORY: Cancer, CKF, HTN Surgical History: Denies all surgeries ANNOUNCER History: No Pertinent ANNOUNCER History Family History Family History: Reviewed,noncontributory to illness, Unknown Social History Smoker: Non-Smoker Alcohol: Denies ETOH Use Drugs: Denies Drug Use Lives In: Home Constitutional: denies: chills, diaphoresis, fatigue, fever, malaise, sweats, weakness, others EENTM: denies: blurred vision, double vision, ear bleeding, ear discharge, ear drainage, ear pain, ear ringing, eye pain, eye redness, hearing loss, mouth pain, mouth swelling, nasal discharge, nose bleeding, nose congestion, nose pain, photophobia, tearing, throat pain, throat swelling, voice changes, others Respiratory: denies: cough, hemoptysis, orthopnea, SOB at rest, shortness of breath, SOB with excertion, stridor, wheezing, others Cardiovascular: reports: chest pain; denies: dizzy spells, diaphoresis, Dyspnea on exertion, edema, irregular heart beat, left arm pain, lightheadedness, palpitations, PND, syncope, others Gastrointestinal: reports: abdominal pain; denies: abdomen distended, blood streaked bowels, constipated, diarrhea, dysphagia, difficulty swallowing, hematemesis, melena, nausea, poor appetite, poor fluid intake, rectal bleeding, rectal pain, vomiting, others Genitourinary: denies: abnormal vagina bleeding, burning, dyspareunia, dysuria, flank pain, frequency, hematuria, incontinence, pain, , vagina discharge, urgency, others Neurological: reports: seizure (possible); denies: dizziness, fainting, headache, left sided numbness, left sided weakness, numbness, paresthesia, pre- existing deficit, right sided numbness, right sided weakness, speech problems, tingling, tremors, weakness, others Musculoskeletal: denies: back pain, gout, joint pain, joint swelling, muscle pain, muscle stiffness, neck pain, others Integumetry: denies: bruises, change in color, change in hair/nails, dryness, laceration, lesions, lumps, rash, wounds, others Allergic/Immunocompromised: denies: Difficulty Healing, Frequent Infections, Hives, Itching, others Hematologic/Lymphatic: denies: anemia, blood clots, easy bleeding, easy bruising, swollen glands, others Endocrine: denies: excessive hunger, excessive sweating, excessive thirst, excessive urination, flushing, intolerance to cold, intolerance to heat, unexplained weight gain, unexplained weight loss, others Psychiatric: denies: anxiety, bipolar disorder, depression, hopeless, panic disorder, schizophrenia, sleepless, suicidal, others All Other Systems: Reviewed and Negative Physical Exam General Appearance: Moderate Distress, Normal HEENT: Normal ENT Inspection, Pharynx Normal, TMs Normal Neck: Full Range of Motion, Non-Tender, Normal, Normal Inspection Respiratory: Chest Non-Tender, Lungs Clear, No Accessory Muscle Use, No Respiratory Distress, Normal Breath Sounds Cardiovascular: No Edema, No JVD, No Murmur, No Gallop, Normal Peripheral Pulses, Regular Rate/Rhythm Breast Exam: Deferred Gastrointestinal: No Organomegaly, Non Tender, No Pulsatile Mass, Normal Bowel Sounds, Soft Genitalia: Deferred Pelvic: Deferred Rectal: Deferred Extremities: No calf tenderness, Normal capillary refill, Non-tender, No pedal edema Musculoskeletal : Apperance: Normal Neurologic: Alert, chief sustainability officer II-XII nml as Tested, No Motor Deficits, No Sensory Deficits Cerebellar Function: NOT DONE Reflexes: NOT DONE Skin: Dry, Pallor, Warm Peripheral Pulses: 3+ Radial (R), 3+ Radial (L) Lymphatic: No Adenopathy Was a procedure done? Was a procedure done?: No EKG EKG : Pulse Rate (adult): 85 [place]: Normal Cardiac Rhythm: NSR Block: None Hypertrophy: None ST: Normal Differential Dx Considerations may include: Anemia Electrolyte imbalance X-Ray, Labs, Meds, VS Vital Signs Date Time Temp Pulse Resp B/P (MAP) Pulse Ox O2 Delivery O2 Flow Rate FiO2 05/25/25 09:44 98.3 87 22 128/96 (107) 98 98.3 05/25/25 09:29 88 16 99 Room Air* 0 21 05/25/25 09:20 85 05/25/25 09:16 85 05/25/25 09:13 98.9 92 18 113/81 (92) 97 98.9 Lab Test 05/25/25 09:36 Range/Units White Blood Count 7.3 4.4-10.8 10^3/uL Red Blood Count 3.14 L 4.0-5.20 10^6/uL Hemoglobin 9.8 L 12.2-16.2 g/dL Hematocrit 29.3 #L 36.0-46.0 % Mean Corpuscular Volume 93.3 80.0-100.0 fL Mean Corpuscular Hemoglobin 31.1 28.0-32.0 pg Mean Corpuscular Hemoglobin Concent 33.4 32.0-36.0 g/dL Red Cell Distribution Width 14.9 H 11.8-14.3 % Platelet Count 43 L 140-450 10^3/uL Mean Platelet Volume 8.3 6.9-10.8 fL Neutrophils (%) (Auto) 84.2 H 37.0-80.0 % Lymphocytes (%) (Auto) 7.8 L 10.0-50.0 % Monocytes (%) (Auto) 7.9 0.0-12.0 % Eosinophils (%) (Auto) 0.0 0.0-7.0 % Basophils (%) (Auto) 0.1 0.0-2.0 % Neutrophils # (Auto) 6.1 1.6-8.6 10 ^3/uL Lymphocytes # (Auto) 0.6 0.4-5.4 10 ^3/uL Monocytes # (Auto) 0.6 0-1.3 10 ^3/uL Eosinophils # (Auto) 0 0-0.8 10 ^3/uL Basophils # (Auto) 0 0-0.2 10 ^3/uL Nucleated Red Blood Cells 0.3 % Platelet Estimate Decreased Poikilocytosis (manual) Slight Anisocytosis (manual) Slight Schistocytes Few Sodium Level 135 L 136-145 mmol/L Potassium Level 2.9 L 3.5-5.1 mmol/L Chloride Level 98 98-107 mmol/L Carbon Dioxide Level 18 L 20-31 mmol/L Anion Gap 19 H 5-15 Blood Urea Nitrogen 41 H 9-23 mg/dL Creatinine 8.22 H 0.550-1.02 mg/dL Glomerular Filtration Rate Calc 6 >90 mL/min BUN/Creatinine Ratio 5.0 L 10.0-20.0 Serum Glucose 63 L 74-106 mg/dL Calcium Level 8.8 8.7-10.4 mg/dL Troponin I High Sensitivity 50 *H </=34 ng/L Current Medications Medications (Trade) Dose Ordered Sig/Kari Route Start Time Stop Time Status Last Admin Levetiracetam 100 ml @ 400 mls/hr ONCE ONCE IV 05/25/25 09:30 05/25/25 09:44 DC 05/25/25 09:36 PATIENT: BECK FIELD ACCT: [id number] UNIT: [id number] : 1990 LOC: ER ROOM / BED: / AGE / SEX: 34 / F ADM STATUS: REG ER SERVICE 6 ORDERING PHYSICIAN: LEILA MATHEW MD PROCEDURE(s): CXRP - CHEST PORTABLE REASON: sob ORDER NUMBER(s): [id number], ACCESSION NUMBER(s): [id number] EXAM: XR Chest, 1 View CLINICAL INDICATION: Pain TECHNIQUE: Frontal view of the chest. COMPARISON: No relevant prior studies available. FINDINGS: LUNGS AND PLEURAL SPACES: See below. HEART: Cardiomegaly with mild congestion. MEDIASTINUM: Unremarkable. Normal mediastinal contour. BONES/JOINTS: Unremarkable. No acute fracture. TUBES, LINES AND DEVICES: Right internal jugular central venous catheter tip in the superior vena cava. IMPRESSION: Cardiomegaly with mild congestion. Patient alert. Complaining of chest discomfort. Vitals stable. Answering questions. History of kidney disease. Last dialyzed Wednesday. History of lupus. Has not taken her seizure medication. Was given Keppra. [facility]. Reviewed her previous visit. Continue to monitor. Time of 1ST Reevaluation: 09:39 Reevaluation 1ST: Unchanged Patient Education/Counseling: Diagnosis, Treatment, Need For Follow Up Family Education/Counseling: No Family Present SEPSIS Sepsis Screen Physician Orders Chest Portable (05/25/25 09:17) Urinalysis (05/25/25 09:08) Electrocardigram (05/25/25 09:20) Vital Signs Date Time Temp Pulse Resp B/P (MAP) Pulse Ox O2 Delivery O2 Flow Rate FiO2 05/25/25 09:44 98.3 87 22 128/96 (107) 98 98.3 05/25/25 09:29 88 16 99 Room Air* 0 21 05/25/25 09:20 85 05/25/25 09:16 85 05/25/25 09:13 98.9 92 18 113/81 (92) 97 98.9 Laboratory Tests Test 05/25/25 09:36 White Blood Count 7.3 10^3/uL (4.4-10.8) Medications Medications Dose Ordered Sig/Kari Route Start Time Stop Time Status Last Admin Dose Admin Levetiracetam 100 ml @ 400 mls/hr ONCE ONCE IV 05/25/25 09:30 05/25/25 09:44 DC 05/25/25 09:36 Departure 1 Departure Time of Disposition: 09:15 Impression: Primary Impression: Thrombocytopenia Additional Impression: End stage renal disease on dialysis Disposition: ADMITTED INPATIENT Admit to: Med Surg Condition: Guarded Critical Care Note Critical Care Time?: Yes (90 min-critical care time only) Critical care comment: Monitoring electrolytes Stability Stability form required: No Heart Score Heart Score: Heart Score Response (Comments) Value History N/A 0 EKG N/A 0 Age N/A 0 Risk Factors N/A 0 Troponin N/A 0 Total 0 I personally scribed for LEILA MATHEW MD ([email or web address]) on 05/25/25 at 09:13. Electronically submitted by Matt Elmore ([email or web address]). I personally scribed for LEILA MATHEW MD ([email or web address]) on 05/25/25 at 09:20. Electronically submitted by Matt Elmore ([email or web address]). I personally scribed for LEILA MATHEW MD ([email or web address]) on 05/25/25 at 09:46. Electronically submitted by Matt Elmore ([email or web address]). LEILA MATHEW MD May 25, 2025 09:13
[2025-05-25 09:29] VITALS: PULSE 88; RESP 16; O2SAT 99
[2025-05-25] MEDS: levETIRAcetam 1000 mg/100ml 100 ML IV ONE (09:36)
--- NOTE | 2025-05-25 09:42 | DVH ---
EXAM: XR Chest, 1 View CLINICAL INDICATION: Pain TECHNIQUE: Frontal view of the chest. COMPARISON: No relevant prior studies available. FINDINGS: LUNGS AND PLEURAL SPACES: See below. HEART: Cardiomegaly with mild congestion. MEDIASTINUM: Unremarkable. Normal mediastinal contour. BONES/JOINTS: Unremarkable. No acute fracture. TUBES, LINES AND DEVICES: Right internal jugular central venous catheter tip in the superior vena ca va. IMPRESSION: Cardiomegaly with mild congestion.
[2025-05-25 09:52] LABS: Hemoglobin 9.8 g/dL (12.2-16.2)
[2025-05-25 09:54] LABS: Hematocrit 29.3 % (36.0-46.0); Mean Corpuscular Hemoglobin 31.1 pg (28.0-32.0); Mean Corpuscular Volume 93.3 fL (80.0-100.0); Nucleated Red Blood Cells % 0.3 %
[2025-05-25 10:08] LABS: Chloride 98 mmol/L (98-107)
[2025-05-25 10:09] LABS: Calcium 8.8 mg/dL (8.7-10.4)
[2025-05-25 10:11] LABS: Anion Gap 19 (5-15); Carbon Dioxide 18 mmol/L (20-31); Potassium 2.9 mmol/L (3.5-5.1); Sodium 135 mmol/L (136-145)
[2025-05-25 10:14] LABS: BUN/Creatinine Ratio 5.0 (10.0-20.0); Blood Urea Nitrogen 41 mg/dL (9-23); Glucose 63 mg/dL (74-106)
[2025-05-25 10:21] LABS: Anisocytosis Slight
[2025-05-25] MEDS: MORPHINE SULFATE INJ 2 MG/ml SYRG IV ONE (13:33)
[2025-05-25] MEDS: ONDANSETRON HCL 4 MG/2 ML VIAL IV ONE (13:33)
[2025-05-25] MEDS: SODIUM CHL 0.9% 1000 ML BAG XX ONE (14:00)
[2025-05-25] MEDS: LABETALOL HCL 20 MG/4 ML VL IV ONE (15:28)
[2025-05-25 15:52] VITALS: BP 170/108; PULSE 81; RESP 16; TEMP 97.9; O2SAT 98
[2025-05-28 10:08] LABS: Hepatitis B Surface Antigen Negative (Negative)
--- NOTE | 2025-05-28 11:46 | ECG ---
Test Date: 2025-05-25 Test Time: 09:16:35 Pat Name: BECK FIELD Department: ED Room: Gender: F Mds Rn: jelly : 1990 Requested By: LEILA MATHEW Order Number: [id number] Reading MD: Vinh Escobar Measurements Intervals [place] Rate: 85 P: 84 MT: 135 QRS: 63 QRSD: 101 T: 138 QT: 467 QTc: 556 Interpretive Statements Sinus rhythm Probable left ventricular hypertrophy Nonspecific T abnrm, anterolateral leads Prolonged QT interval Electronically Signed On 05-31-2025 18:13:20 PDT by Vinh Escobar Please click the below link to view image of tracing.
== END 2025-05-25 16:44 | disposition home or self-care (01) ==
LOC: EDBD 08:59 → ER 08:59
DX: D69.6 Thrombocytopenia, unspecified (principal); I12.0 Hypertensive chronic kidney disease with stage 5 chronic kidney disease or end stage renal disease; N18.6 End stage renal disease; Z99.2 Dependence on renal dialysis; Z79.899 Other long term (current) drug therapy; Z79.1 Long term (current) use of non-steroidal anti-inflammatories (NSAID)
CPT/HCPCS: 36415; 71045; 80048; 82947; 84484; 85025; 86706; 87340; 93005; 96374; 96375; 99291; 99292; J2270; J2405; 96365

== ENCOUNTER 2025-07-22 19:44 | Emergency (ER) | payer OTHER ==
[~2025-07-22] VITALS: Ht 147.3 cm; Wt 42.3 kg
[2025-07-22 19:55] VITALS: PULSE 85; RESP 14; O2SAT 96
--- NOTE | 2025-07-22 20:18 | ED.PDOC ---
History of Present Illness HPI Comments 35 y/o F, with a Hx of ESRD w/HD M/W/F, is BIBA for c/c of generalized weakness, dizziness, nausea, and vomiting. Per EMS report, patient endorses on ongoing symptoms since yesterday, evening. Today, she is commented to have vomited 5x, with green chunks in her vomitus. Notable on scene blood glucose reading of 59. En route, patient received 1x tube of oral glucose, with levels remeasured at 66 before dropping to 46 upon arrival to ED. Patient admits to missing her last dialysis session on Wednesday and has had poor appetite with no food intake for 2.5x weeks. Denial of any further acute symptoms at this time. Chief Complaint: General Weakness Time Seen by MD: 20:10 Primary Care Provider: DEANA Yee Notes: Nurses Notes, Human Resources Vice President Notes, Medications, Allergies Allergies: Coded Allergies: NO KNOWN ALLERGIES (Unverified , 11/24/20) Home Meds Active Scripts Metronidazole (Flagyl) 500 Mg Tab, 1 TAB PO TID, #30 TAB Prov:BEBETO STRANGE MD 05/24/25 Levofloxacin Hemihydrate (LEVAQUIN 500 MG) 500 Mg Tab, 1 TAB PO DAILY, #10 TAB Prov:BEBETO STRANGE MD 05/24/25 Bumetanide (Bumex) 0.5 Mg Tab, 0.5 MG PO DAILY for 5 Days, #5 TAB 0 Refills Prov:TEA GOMEZ DO 04/09/25 Amoxicillin & Pot Clavulanate (AUGMENTIN TABLET) 875 Mg Tb, 875 MG PO BID for 5 Days, #10 TAB 0 Refills Prov:TEA GOMEZ DO 04/09/25 Cephalexin Monohydrate (Cephalexin) 500 Mg Tab, 1 TAB PO QID, #40 TAB Prov:MARIE HOOKS MD 12/01/24 Ibuprofen Micronized (MOTRIN TABLET) 600 Mg Tb, 600 MG PO TID PRN, #40 TAB *Black box warning-NSAIDS can increase risk of PR & hypertension, GI irritation, ulceration, bleed, perferation. Do not use post cardiac surgery. Use short duration/lowest effective dose. Prov:MARIE HOOKS MD 12/01/24 Fluconazole (Diflucan) 150 Mg Tab, 1 TAB PO ONCE for 14 Days, #2 TAB Take once weekly for two weeks Prov:CANDY FRANCIS PAC 07/24/24 Clotrimazole (Topical) (EQ ANTIFUNGAL) 1 % Cre, 1 % EX BID for 28 Days, #1 CRE Prov:CANDY FRANCIS PAC 07/24/24 Ibuprofen Micronized (Ibuprofen) 600 Mg Tab, 600 MG PO Q8HPRN PRN, #20 TAB Prov:CANDY FRANCIS PAC 07/24/24 Methocarbamol (Methocarbamol) 500 Mg Tab, 500 MG PO BID, #20 TAB Prov:ANTPATRICIA Del Real 02/10/24 Ibuprofen (Ibuprofen) 800 Mg Tab, 1 TAB PO TID, #30 TAB Prov:ANTPATRICIA Del Real PA 02/10/24 Ibuprofen (Ibuprofen) 800 Mg Tab, 1 TAB PO TID PRN for 7 Days, #21 TAB 1 Refill Prov:JESSY VELEZ FRUIT RAISER 09/25/23 Methocarbamol (Methocarbamol) 500 Mg Tab, 500 MG PO BID, #20 TAB Prov:PATRICIA CAIN PA 09/24/22 Ibuprofen (Ibuprofen) 600 Mg Tab, 600 MG PO TID, #30 TAB Prov:ANT,NEEMAMarshall PA 09/24/22 Reported Medications Diphenoxylate W/ Atropine (Lomotil) 2.5 Mg Tab, 2.5 TAB PO TID, #30 TAB 25 Diphenoxylate W/ Atropine (Lomotil) 2.5 Mg Tab, 1 TAB PO TID, #30 TAB 25 Heparin Sodium (Porcine) ((None)) 10 Units/Ml Ij, 10 UNITS IV 10/21/13 Information Source: Patient, Emergency Med Personnel Mode of Arrival: EMS Past Medical History PAST MEDICAL HISTORY: Cancer, CKF, ESRD, HTN Surgical History: Denies all surgeries INFORMATICS ANALYST History: No Pertinent INFORMATICS ANALYST History Family History Family History: Reviewed,noncontributory to illness, Unknown Social History Smoker: Non-Smoker Alcohol: Denies ETOH Use Drugs: Denies Drug Use Lives In: Home All Other Systems: Reviewed and Negative (Comprehensive systems review obtained and negative except for what is stated in the HPI.) Physical Exam General Appearance: Mild Distress, Normal HEENT: Normal ENT Inspection, Pharynx Normal, TMs Normal Neck: Full Range of Motion, Non-Tender, Normal, Normal Inspection Respiratory: Chest Non-Tender, Lungs Clear, No Accessory Muscle Use, No Respiratory Distress, Normal Breath Sounds Cardiovascular: No Edema, No JVD, No Murmur, No Gallop, Normal Peripheral Pulses, Regular Rate/Rhythm Breast Exam: Deferred Gastrointestinal: No Organomegaly, Non Tender, No Pulsatile Mass, Normal Bowel Sounds, Soft Genitalia: Deferred Pelvic: Deferred Rectal: Deferred Extremities: No calf tenderness, Normal capillary refill, Normal inspection, Normal range of motion, Non-tender, No pedal edema Musculoskeletal : Apperance: Normal Neurologic: Alert, die maker II-XII nml as Tested, No Motor Deficits, Normal Affect, Normal Mood, No Sensory Deficits Cerebellar Function: Normal Reflexes: Normal Skin: Dry, Normal Color, Warm, Other (catheter to right chest wall ) Lymphatic: No Adenopathy Was a procedure done? Was a procedure done?: No Differential Dx Considerations may include: fluid overload, electrolyte imbalance, dehydration, viral syndrome, gastritis, gastroenteritis, UTI, among others X-Ray, Labs, Meds, VS Vital Signs Date Time Temp Pulse Resp B/P (MAP) Pulse Ox O2 Delivery O2 Flow Rate FiO2 07/22/25 19:50 98.8 88 18 171/116 100 98.8 Lab Test 07/22/25 20:32 Range/Units White Blood Count 2.2 L 4.4-10.8 10^3/uL Red Blood Count 2.91 L 4.0-5.20 10^6/uL Hemoglobin 9.2 L 12.2-16.2 g/dL Hematocrit 26.9 L 36.0-46.0 % Mean Corpuscular Volume 92.3 80.0-100.0 fL Mean Corpuscular Hemoglobin 31.5 28.0-32.0 pg Mean Corpuscular Hemoglobin Concent 34.1 32.0-36.0 g/dL Red Cell Distribution Width 16.9 H 11.8-14.3 % Platelet Count 70 L 140-450 10^3/uL Mean Platelet Volume 7.1 6.9-10.8 fL Neutrophils (%) (Auto) 53.2 37.0-80.0 % Lymphocytes (%) (Auto) 30.5 10.0-50.0 % Monocytes (%) (Auto) 11.8 0.0-12.0 % Eosinophils (%) (Auto) 2.7 0.0-7.0 % Basophils (%) (Auto) 1.8 0.0-2.0 % Neutrophils # (Auto) 1.2 L 1.6-8.6 10 ^3/uL Lymphocytes # (Auto) 0.7 0.4-5.4 10 ^3/uL Monocytes # (Auto) 0.3 0-1.3 10 ^3/uL Eosinophils # (Auto) 0.1 0-0.8 10 ^3/uL Basophils # (Auto) 0 0-0.2 10 ^3/uL Nucleated Red Blood Cells 0.2 % Prothrombin Time 10.9 9.3-11.8 sec Prothrombin Time INR 1.03 0.9-1.15 Activated Partial Thromboplast Time 32.2 24.5-34.5 SEC Sodium Level 136 136-145 mmol/L Potassium Level 2.6 L 3.5-5.1 mmol/L Chloride Level 99 98-107 mmol/L Carbon Dioxide Level 23 20-31 mmol/L Anion Gap 14 5-15 Blood Urea Nitrogen 22 9-23 mg/dL Creatinine 7.88 H 0.550-1.02 mg/dL Glomerular Filtration Rate Calc 6 >90 mL/min BUN/Creatinine Ratio 2.8 L 10.0-20.0 Serum Glucose 110 H 74-106 mg/dL Calcium Level 8.3 L 8.7-10.4 mg/dL Magnesium Level 2.0 1.6-2.6 mg/dL Total Bilirubin < 0.2 L 0.2-1.0 mg/dL Aspartate Amino Transferase (AST) 24 13-40 U/L Alanine Aminotransferase (ALT) 13 7-40 U/L Alkaline Phosphatase 94 46-116 U/L B-Type Natriuretic Peptide 847.79 0-100 pg/mL Total Protein 5.3 L 5.7-8.2 g/dL Albumin 3.0 L 3.2-4.8 g/dL Time of 1ST Reevaluation: 20:40 Reevaluation 1ST: Unchanged Patient Education/Counseling: Diagnosis, Treatment Family Education/Counseling: No Family Present SEPSIS Sepsis Screen Physician Orders Chest Xray 1 View (07/22/25 20:07) Blood Glucose Q2h (07/22/25 20:10) Potassium Er Tablet (Klor-Con Tablet) (07/22/25 22:15) Vital Signs Date Time Temp Pulse Resp B/P (MAP) Pulse Ox O2 Delivery O2 Flow Rate FiO2 07/22/25 19:50 98.8 88 18 171/116 100 98.8 Laboratory Tests Test 07/22/25 20:32 White Blood Count 2.2 10^3/uL (4.4-10.8) L Departure 1 Departure Time of Disposition: 22:05 Impression: Primary Impression: End stage renal disease on dialysis Additional Impressions: Pancytopenia Hypokalemia Hypertensive urgency Disposition: ADMITTED INPATIENT Admit to: Tele Condition: Guarded Comments 35-year-old female on dialysis Wednesday and Wednesday but missed it 2 days ago on Wednesday. Patient has been very weak. On lab review she has severe pancytopenia, white blood cells low 2.2, H and H low 9 and 27, platelets low at 70. Chronic renal failure with creatinine high at 7.9 but BUN is normal. Hypokalemia 2.6. Patient was given potassium replacement and hydralazine for her high blood pressure. Patient will need admission for supportive care and further workup. Critical Care Note Critical Care Time?: Yes (35 min-critical care time only) Critical care comment: Total critical care time: Approximately 36 minutes Due to a high probability of clinically significant, life threatening deterioration, the patient required my highest level of preparedness to intervene emergently and I personally spent this critical care time directly and personally managing the patient. This critical care time included obtaining a history; examining the patient; pulse oximetry; ordering and review of studies; arranging urgent treatment with development of a management plan; evaluation of patient's response to treatment; frequent reassessment; and, discussions with other providers. This critical care time was performed to assess and manage the high probability of imminent, life-threatening deterioration that could result in multi-organ failure. It was exclusive of separately billable procedures and treating other patients. Stability Stability form required: No Heart Score Heart Score: Heart Score Response (Comments) Value History N/A 0 EKG N/A 0 Age N/A 0 Risk Factors N/A 0 Troponin N/A 0 Total 0 I personally scribed for CHIAK SEQUEIRA MD ([email or web address]) on 07/22/25 at 20:18. Electronically submitted by Alex Peraza ([email or web address]). CHIKA SEQUEIRA MD Jul 22, 2025 20:18
[2025-07-22 20:45] LABS: Hematocrit 26.9 % (36.0-46.0); Hemoglobin 9.2 g/dL (12.2-16.2); Mean Corpuscular Hemoglobin 31.5 pg (28.0-32.0); Mean Corpuscular Volume 92.3 fL (80.0-100.0); Nucleated Red Blood Cells % 0.2 %
[2025-07-22 20:59] LABS: Alanine Aminotransferase 13 U/L (7-40); Alkaline Phosphatase 94 U/L (46-116); Anion Gap 14 (5-15); BUN/Creatinine Ratio 2.8 (10.0-20.0); Blood Urea Nitrogen 22 mg/dL (9-23); Carbon Dioxide 23 mmol/L (20-31); Chloride 99 mmol/L (98-107); Magnesium 2.0 mg/dL (1.6-2.6); Sodium 136 mmol/L (136-145)
[2025-07-22 21:00] LABS: INR 1.03 (0.9-1.15); Partial Thromboplastin Time 32.2 SEC (24.5-34.5); Prothrombin Time 10.9 sec (9.3-11.8)
[2025-07-22 21:03] LABS: Albumin 3.0 g/dL (3.2-4.8); Bilirubin, Total < 0.2 mg/dL (0.2-1.0); Calcium 8.3 mg/dL (8.7-10.4); Glucose 110 mg/dL (74-106); Potassium 2.6 mmol/L (3.5-5.1); Total Protein 5.3 g/dL (5.7-8.2)
[2025-07-22] MEDS: POTASSIUM CHL 20 Meq TABLET PO ONE (22:15)
[2025-07-23] MEDS: MORPHINE SULFATE 4 MG/ML SYR/VIAL IV ONE (01:15)
[2025-07-23] MEDS: ONDANSETRON HCL 4 MG/2 ML VIAL IV ONE (01:15)
--- NOTE | 2025-07-23 01:36 | DVH ---
CHEST RADIOGRAPH Indication: SOB Technique: Single frontal view of the chest was obtained COMPARISON: XY CHEST PORTABLE on DOS: 05/25/25 FINDINGS: Lines and Tubes: Tunneled right IJ central venous catheter again noted. Lungs: No pulmonary edema or infiltrates. Pleura: No pleural effusion or pneumothorax. Cardiomediastinal contours: [id number] cardiomegaly. IMPRESSION: Cardiomegaly. No evidence of pulmonary edema or pneumonia.
[2025-07-23 05:41] VITALS: BP 168/119; PULSE 92; RESP 17; TEMP 98.1; O2SAT 98
[2025-07-23] MEDS ORDERED: POTASSIUM CHL 20 Meq TABLET PO ONE ×2 (06:23→06:43)
== END 2025-07-23 05:48 | disposition short-term general hospital (02) ==
LOC: EDBD 19:44 → EDUNIT# 19:44 → ER 19:44
DX: I13.11 Hypertensive heart and chronic kidney disease without heart failure, with stage 5 chronic kidney disease, or end stage renal disease (principal); N18.6 End stage renal disease; I16.0 Hypertensive urgency; D61.818 Other pancytopenia; E87.6 Hypokalemia; Z79.899 Other long term (current) drug therapy; Z99.2 Dependence on renal dialysis
CPT/HCPCS: 36415; 71045; 80053; 82947; 83735; 83880; 85025; 85610; 85730; 96374; 96375; 99291; J2270; J2405